=== PATIENT | male | born 1945 | race Caucasian/White ===

== ENCOUNTER 2018-08-10 11:23 | Inpatient (IN) | payer MEDICARE, OTHER ==
[~2018-08-10 11:23] MED LIST: ISOVUE-370 76%-LOCM 1 ML ONE
[2018-08-10 12:07] LABS: Hemoglobin 17.6 g/dL (14.0-18.0); Mean Corpuscular HGB CONC 33.5 g/dL (32.0-36.0); Mean Corpuscular Volume 89.7 fL (78.0-98.0); Mean Platelet Volume 7.6 fL (7.4-10.4); Platelet Count 323 thou/uL (130-400); RBC Distribution Width 13.2 % (11.5-14.5); Red Blood Cell (RBC) Count 5.87 mill/uL (4.70-6.10); White Blood Cell (WBC) Count 14.1 thou/uL (4.8-10.8)
--- NOTE | 2018-08-10 12:10 | RAD ---
CHEST ONE VIEW: Date: 08-10-18 Time: 11:38 a.m. History: Dyspnea. FINDINGS: Comparison is made with exam of 08-03-18. There are changes of median sternotomy. The heart size is normal. The aorta is tortuous. Bilateral sm all pleural effusions are again seen with mild adjacent atelectatic changes/infiltrates. No pneumotho races are seen. IMPRESSION: Stable exam. POS: [facility]
[2018-08-10 12:26] LABS: ALT (SGPT) 19 U/L (8-55); AST (SGOT) 15 U/L (5-34); Albumin 4.4 g/dL (3.4-4.8); Alkaline Phosphatase 121 U/L (40-150); Anion Gap 12 mmol/L (10-20); BUN (Urea Nitrogen) 24 mg/dL (8.4-25.7); Bilirubin, Total 0.7 mg/dL (0.2-1.2); CK (CPK) 61 U/L (30-200); Calc. Creatinine Clearance 0 mL/min (70-130); Calcium 10.1 mg/dL (7.8-10.44); Carbon Dioxide 30 mmol/L (23-31); Chloride 101 mmol/L (98-107); Estimated GFR-MDRD 80; Globulin 2.4 g/dL (2.4-3.5); Glucose 162 mg/dL (83-110); Lipase 21 U/L (8-78); Potassium 4.6 mmol/L (3.5-5.1); Protein, Total 6.8 g/dL (5.8-8.1); Sodium 138 mmol/L (136-145)
[2018-08-10 12:33] LABS: Band 1 % (5-11); Lymphocytes 47 % (21-51); MDiff Complete? YES; Neutrophil 50 % (42-75); RBC Morphology Normal; Reactive Lymphocytes 3 % (0-10)
[2018-08-10] MEDS ORDERED: methylPREDNISolone Sod Succ/PF 125 MG/2 ML VIAL ONE (16:46)
[2018-08-10] MEDS ORDERED: cefTRIAXone\\ROCEPHIN 2 GM VIAL ONE (16:46)
[2018-08-10] MEDS ORDERED: Azithromycin 500 MG VIAL ONE (17:30)
[2018-08-10] MEDS ORDERED: Acetaminophen 325 MG TAB PO PRN (20:25)
[2018-08-10] MEDS ORDERED: Ondansetron PF 4 MG/2 ML Vial IVP PRN (20:25)
[2018-08-10] MEDS ORDERED: Zolpidem Tartrate 5 MG TAB PO PRN (20:25)
[2018-08-10] MEDS ORDERED: Dextrose 50% Abboject 50 ML SYRINGE SLOW IVP PRN (20:30)
[2018-08-10] MEDS ORDERED: Dextrose 5% in Water 1,000 ML IV PRN (20:30)
--- NOTE | 2018-08-10 20:37 | PDOC.EVN ---
Event Note - Event Note Event Note: H&P #[id number]
[2018-08-10] MEDS ORDERED: Levofloxacin 500 mg/D5W 100 ml Premix Bag ONE (21:31)
--- NOTE | 2018-08-10 21:57 | CT ---
CT CHEST WITH CONTRAST: 08/10/18 HISTORY: Shortness of breath. COPD. COMPARISON: Chest radiograph same day. FINDINGS: There are very large bilateral pleural effusions each involving approximately 40% of the hemithorax v olume. There are extensive mass-like soft tissues surrounding the abdominal aorta as well as the thor acic aorta with anterior displacement of the aorta. There is also soft tissue encompassing the celiac trunk splenic artery, left gastric artery and common hepatic artery. Lawrence hepatis lymph nodes are p resent. Bilateral hilar adenopathy is present as well as subcarinal adenopathy right peritracheal adenopathy . No acute displaced rib fracture. There are perifissural nodules along the right minor fissure. Ther e appears to be some round atelectasis in both lower lobes. IMPRESSION: 1. Extensive confluent adenopathy and soft tissue mass surrounding the mid thoracic and visualiz ed portions of the abdominal aorta encasing the aorta and elevation suggesting lymphoma. There is als o lawrence hepatis adenopathy as well as adenopathy surrounding the celiac trunk, left gastric artery as well as the splenic artery. There is likely more adenopathy in the lower abdomen, although not compl etely evaluated on this exam. 2. Large mediastinal adenopathy as described. 3. Large bilateral pleural effusions encompassing approximately 40% of the hemithorax space. POS: [facility]
[2018-08-10] MEDS: Heparin 5,000 UNITS/ML VIAL SC SCH (22:37)
[2018-08-10] MEDS: Atorvastatin Calcium 40 MG TAB PO SCH (22:38)
[2018-08-10 23:25] LABS: Troponin I Less than 0.010 ng/mL (< 0.028)
--- NOTE | 2018-08-11 01:33 | HP ---
CHIEF COMPLAINT: Shortness of breath. HISTORY OF PRESENT ILLNESS: This is a 73-year-old male, complaining of shortness of breath, stated that the onset has been for about one week. The patient states that he uses DuoNeb at home and did use a DuoNeb at home, however, noted that he was not having any symptomatic relief or improvement in his condition, so the patient decided to come to the ER. The patient was given DuoNeb, steroids as well as supplemental oxygen and had significant improvement in his condition and symptomatology in the ER, and the patient continued to have a cough, however, and does state that he has recently become productive in the last 2 to 3 days. Denies any fevers at home. The patient does state that he has never had this type of a reaction or symptomatology in the past. The patient states that he otherwise does not have any other associated complaints. No alleviating or aggravating factors. The patient is seen and examined in the ER. No family at bedside. All questions answered. REVIEW OF SYSTEMS: All systems reviewed. Pertinent positives in HPI, otherwise negative. PAST MEDICAL HISTORY: Positive for coronary artery disease with two stents as well as cardiac bypass, diabetes mellitus type 2, hypothyroidism, hypertension, hyperlipidemia, as well as a history of hernia repair. SOCIAL HISTORY: The patient denies any alcohol use. Denies any smoking. FAMILY HISTORY: Positive for hypertension. MEDICATIONS: See MAR. PHYSICAL EXAMINATION: VITAL SIGNS: Blood pressure 140/82, respiratory rate of 18, pulse of 92, O2 saturations 97% on room air, temperature of 98.1. GENERAL: The patient is lying in bed. No acute discomfort noted. HEENT: Pupils are equal, reactive to light and accommodation. Extraocular muscles are intact. Oral cavity is moist and pink. RESPIRATORY: Coarse breath sounds in all lung washburn. The patient is coughing, external respiratory causes wheezing. No hemoptysis and no increase in AP diameter. CARDIOVASCULAR: Slightly borderline sinus tachycardia. Faint ejection murmur appreciated. S1, S2. ABDOMEN: Positive bowel sounds. Soft, nontender, nondistended. EXTREMITIES: 2+ peripheral pulses. No cyanosis, clubbing, or edema noted. NEUROLOGICAL: Cranial nerves 2 through 12 are intact. No loss of motor or sensory function. LABORATORY DATA: The patient has CBC with a WBC count of 14, otherwise normal. Basic metabolic panel normal except for a glucose which was 162. The patient had a chest x-ray done in the ER which was positive for nothing, basically stable cardiopulmonary on chest x-ray. ASSESSMENT: 1. Chronic obstructive pulmonary disease exacerbation. 2. Cough. 3. Hypertension. 4. Coronary artery disease, status post coronary artery bypass graft. 5. Hypothyroidism. 6. Diabetes mellitus, type 2. 7. Hyperlipidemia. PLAN: At this point in time, we will admit the patient to the internal medicine service. Start the patient on aspirin and cholesterol for his CAD. We will also start the patient on steroids as well as p.r.n. DuoNeb, oxygen. We will give antibiotics and Levaquin. Blood cultures were done and pending. Repeat labs in the morning. Sliding scale for diabetes at this point in time, the patient taking only glipizide at home and glucose was relatively well controlled, so we can probably resume that at point in time of discharge. The patient states that he wishes to remain a full code. Case and plan were discussed with the patient at length in the ER room where the patient was examined. No family at bedside. All questions answered. Job ID: [id number]
[2018-08-11] MEDS: methylPREDNISolone Sod Succ/PF 125 MG/2 ML VIAL IVP SCH ×2 (02:18→05:51)
[2018-08-11 02:38] VITALS: BMI 23.2
[2018-08-11] MEDS: Levothyroxine Sodium 25 MCG TAB PO SCH (05:50)
[2018-08-11] MEDS: HumaLOG 300 UNITS/3 ML VIAL SC PRN ×4 (05:51→21:45)
[2018-08-11] MEDS: Levothyroxine Sodium 112 MCG TAB PO SCH (05:51)
[2018-08-11] MEDS ORDERED: ISOVUE-370 76%-LOCM 1 ML ONE (08:16)
[2018-08-11] MEDS: Lisinopril 20 MG TAB PO SCH (08:26)
[2018-08-11] MEDS: Aspirin 81 mg Enteric Coated Tablet PO SCH (08:26)
[2018-08-11] MEDS: Heparin 5,000 UNITS/ML VIAL SC SCH ×2 (08:26→19:57)
[2018-08-11] MEDS: Gabapentin 400 MG CAP PO SCH (08:26)
[2018-08-11 08:45] LABS: Band 2 % (5-11); Hemoglobin 16.2 g/dL (14.0-18.0); Lymphocytes 27 % (21-51); MDiff Complete? YES; Mean Corpuscular HGB CONC 33.4 g/dL (32.0-36.0); Mean Corpuscular Hemoglobin 30.3 pg (27.0-31.0); Mean Corpuscular Volume 90.7 fL (78.0-98.0); Mean Platelet Volume 7.5 fL (7.4-10.4); Monocytes 1 % (0-10); Neutrophil 61 % (42-75); Platelet Count 283 thou/uL (130-400); RBC Distribution Width 13.1 % (11.5-14.5); RBC Morphology Normal; Reactive Lymphocytes 9 % (0-10); Red Blood Cell (RBC) Count 5.35 mill/uL (4.70-6.10); White Blood Cell (WBC) Count 14.9 thou/uL (4.8-10.8)
[2018-08-11 08:52] LABS: Anion Gap 14 mmol/L (10-20); BUN (Urea Nitrogen) 21 mg/dL (8.4-25.7); Calc. Creatinine Clearance 86 mL/min (70-130); Calcium 9.9 mg/dL (7.8-10.44); Carbon Dioxide 27 mmol/L (23-31); Chloride 101 mmol/L (98-107); Estimated GFR-MDRD 85; Glucose 228 mg/dL (83-110); Potassium 4.1 mmol/L (3.5-5.1); Sodium 138 mmol/L (136-145)
--- NOTE | 2018-08-11 11:12 | PDOC.PN ---
- Subjective Encounter Start Date: 08/11/18 Encounter Start Time: 11:10 Subjective: Patient reports SOB especially when laying flat. -: Continues with constant coughing fits but unable to clear his chest. -: States his chest feels congested. Has been tolerating oral intake. Reports having weight loss for the last 2 months and has lost 17 lbs overall. Denies any hemoptysis. States cough is dry and has been present for 2 months as well. Previously noted abdominal pain on the right side, more prominent when laying on his left. No abdominal pain at present. Normal bowel movements. No diarrhea. No n/v. - Objective Resuscitation Status - Order Detail: 08/10/18 20:25 Resuscitation Status Routine Resuscitation Status: FULL: Full Resuscitation Discussed with: patient Vital Signs & Weight: Vital Signs (12 hours) Temp Pulse Resp BP BP BP Pulse Ox 08/11/18 08:26 158/91 H 08/11/18 08:25 92 L 08/11/18 07:52 97.9 F 87 20 138/91 H 92 L 08/11/18 06:39 93 L 08/11/18 04:58 97.9 F 70 20 161/89 H 93 L 08/11/18 03:01 97.7 F 81 18 108/56 L 97 08/11/18 01:35 97.7 F 81 18 108/56 L 97 08/11/18 01:11 98.6 F 67 20 155/67 H 92 L Weight Weight 181 lb I&O: 08/10/18 08/11/18 08/12/18 06:59 06:59 06:59 Intake Total 350 Balance 350 Result Diagrams: 08/12/18 07:46 08/12/18 07:46 Additional Labs: Accuchecks 08/11/18 08/10/18 04:59 22:05 POC Glucose 257 H 280 H Phys Exam - Physical Examination Constitutional: NAD HEENT: PERRLA, sclera anicteric, oral pharynx no lesions Neck: supple, full ROM scattered inspiratory/expiratory wheezing in upper lung washburn decreased breath sounds at bilateral bases Cardiovascular: RRR Gastrointestinal: soft, non-tender, no distention, positive bowel sounds Musculoskeletal: no edema, pulses present Neurological: normal sensation, moves all 4 limbs Psychiatric: normal affect, A&O x 3 Skin: no rash, normal turgor Dx/Plan (1) Mediastinal adenopathy Code(s): R59.0 - LOCALIZED ENLARGED LYMPH NODES Status: Acute (2) Suspected malignant neoplasm Code(s): R68.89 - OTHER GENERAL SYMPTOMS AND SIGNS Status: Acute Plan: CT Chest notable for mass encasing thoracic and what is visible of the abdominal aorta. Lymphoma suspected. Additional imaging with CT A/P requested. Oncology consult placed. (3) Bilateral pleural effusion Code(s): J90 - PLEURAL EFFUSION, NOT ELSEWHERE CLASSIFIED Status: Acute Plan: Lasix 40 mg IV x 1. Likely malignant in nature, given mediastinal lymph nodes/mass. Pulmonary consult, may benefit from diagnostic/therapeutic thoracentesis. Continue to monitor O2 sats. Duonebs and steroids. (4) COPD (chronic obstructive pulmonary disease) Status: Acute Plan: As above, continue to monitor O2 sats. Duonebs, steroids and cough suppressant (Tessalon). (5) CAD (coronary artery disease) Code(s): I25.10 - ATHSCL HEART DISEASE OF [place] CORONARY ARTERY W/O ANG PCTRS Status: Chronic Plan: Hx of CABG x 2 and stent placement. Echo pending. BNP normal. - Plan cont current plan of care Patients case to be discussed with Dr. Denise for further recommendations. * Recommend Thoracic surgery evaluation for consideration of tissue bx, may also need CT guided bx of mediastinal mass. Convert to inpt status for comprehensive work up and evaluation given likely malignant process.
[2018-08-11] MEDS ORDERED: Furosemide 40 MG/4 ML VIAL SLOW IVP SCH (11:30)
--- NOTE | 2018-08-11 12:26 | CON ---
DATE OF CONSULTATION: HISTORY OF PRESENT ILLNESS: A 73-year-old gentleman, minimal tobacco abuse, smoked for no more than 4 years about in the , who sees the [facility] for normal care. He went yesterday with increased shortness of breath and cough without any fever or chills. was clear. He was told to go to [facility], but he wanted to come over here, he was therefore admitted here. He said he lost about 18 pounds. Denies any previous history of TB, pneumonia, or bronchial asthma. On most days, he can barely walk even 100 feet without getting markedly short of breath. This morning, he said he is feeling somewhat better. PAST MEDICAL HISTORY: Coronary artery disease status post SC, diabetes, hypothyroidism, hyperlipidemia and hypertension. PAST SURGICAL HISTORY: Bypass surgery, 2 stents, 2 hernia operation. No cancer. No CVA. No alcohol. HOME MEDICATIONS: Includes: 1. Gabapentin 400. 2. Aspirin 81. 3. Glipizide 5 twice a day. 4. Synthroid 137. 5. Hydrocodone. 6. Uroxatral 10 a day. ALLERGIES: SULFA. SOCIAL HISTORY: He is a traveling construction superintendent. REVIEW OF SYSTEMS: A 10-point negative. PHYSICAL EXAMINATION: VITAL SIGNS: Sats % on room air, blood pressure 150/91, pulse 87, temperature 97. CHEST: Decreased breath sounds bilaterally. CARDIAC: Normal S1, S2. No gallops. ABDOMEN: No masses. LABORATORY DATA: White count 47173, H and H 16 and 48, platelet count normal. His lytes are normal. Glucose 288. His chest x-ray shows bilateral blunting of the costophrenic angles, bilateral pleural effusion. CAT scan confirms a large pleural effusion and previous bypass surgery. ASSESSMENT: 1. Large bilateral pleural effusion. Normal BNP. Rule out congestive heart failure. 2. Minimal tobacco abuse, hypothyroidism. Switch over to oral medication. Await results of the echo. Need cardiology input. Pulmonary will follow. Consultation note, 70 minutes, 50% direct patient care. Job ID: [id number]
[2018-08-11] MEDS: Benzonatate 100 MG CAP PO SCH ×2 (14:30→19:57)
--- NOTE | 2018-08-11 17:43 | CT ---
CT ABDOMEN AND PELVIS WITH CONTRAST 08/11/18 HISTORY: Mass surrounding the aorta. COMPARISON: CT chest prior day. FINDINGS: Similar appearance of a large bilateral pleural effusions. There is soft tissue mass surrounding the thoracic aorta as well as the abdominal aorta, renal arteries, celiac trunk, superior mesenteric apple ry, and inferior mesenteric artery. Confluent adenopathy extends down to the level of the aortic bifu rcation. There are no dilated loops of large or small bowel. The liver and spleen are unremarkable. Cholelithi asis is present. Extensive tala hepatis adenopathy. Kidneys are unremarkable. No hydronephrosis. There is, however, abnormal thickening of the distal lef t ureter approximately 3 cm from the ureterovesicular junction seen on axial image 79. There are calcifications within the prostate. Mild diverticular disease sigmoid colon without active current inflammation. There are abnormally increased in number small bowel mesenteric lymph nodes as well as lymph nodes a djacent to the ascending colon. There is some mild extrinsic mass effect upon the aorta at the level of the renal arteries with approximately 10 to 15% luminal narrowing. There is also some luminal narr owing of the left renal artery approximately 30 to 40% near the ostia. Old compression deformity T12 superior end plate. IMPRESSION: 1. Confluent adenopathy/soft tissue mass surrounding the thoracic and abdominal aorta with some luminal compression of the renal arteries as well as of the aorta as described. This has the appearan ce of lymphoma. 2. Abnormal thickening of the distal left ureter approximately 2 cm from the ureterovesicular ju nction on axial image 79-80. Recommend followup CT urogram versus direct visualization is recommended . Nonemergent urologic consultation is recommended. This is not likely the cause of the adenopathy. 3. Small peripancreatic lymph node less likely a cystic mass along the caudad aspect of the panc reas measuring 8 mm, axial image 29, coronal image 52. 4. Cholelithiasis without cholecystitis. POS: [facility]
[2018-08-11] MEDS: Atorvastatin Calcium 40 MG TAB PO SCH (19:57)
[2018-08-12] MEDS: Levothyroxine Sodium 112 MCG TAB PO SCH (05:32)
[2018-08-12] MEDS: Levothyroxine Sodium 25 MCG TAB PO SCH (05:32)
[2018-08-12] MEDS: HumaLOG 300 UNITS/3 ML VIAL SC PRN ×4 (05:36→20:38)
[2018-08-12 08:27] LABS: Hemoglobin 16.4 g/dL (14.0-18.0); Mean Corpuscular HGB CONC 33.1 g/dL (32.0-36.0); Mean Corpuscular Hemoglobin 30.1 pg (27.0-31.0); Mean Corpuscular Volume 90.8 fL (78.0-98.0); Mean Platelet Volume 7.7 fL (7.4-10.4); Platelet Count 254 thou/uL (130-400); RBC Distribution Width 13.4 % (11.5-14.5); Red Blood Cell (RBC) Count 5.47 mill/uL (4.70-6.10); White Blood Cell (WBC) Count 11.7 thou/uL (4.8-10.8)
[2018-08-12] MEDS: Lisinopril 20 MG TAB PO SCH (08:31)
[2018-08-12] MEDS: Gabapentin 400 MG CAP PO SCH (08:31)
[2018-08-12] MEDS: predniSONE 20 MG TAB PO SCH (08:31)
[2018-08-12] MEDS: Heparin 5,000 UNITS/ML VIAL SC SCH ×2 (08:31→20:36)
[2018-08-12] MEDS: Benzonatate 100 MG CAP PO SCH ×3 (08:31→20:36)
[2018-08-12] MEDS: Furosemide 20 MG TAB PO SCH (08:31)
[2018-08-12] MEDS: Aspirin 81 mg Enteric Coated Tablet PO SCH (08:31)
[2018-08-12 08:43] LABS: Anion Gap 12 mmol/L (10-20); BUN (Urea Nitrogen) 26 mg/dL (8.4-25.7); Calc. Creatinine Clearance 86 mL/min (70-130); Calcium 9.8 mg/dL (7.8-10.44); Carbon Dioxide 33 mmol/L (23-31); Chloride 98 mmol/L (98-107); Estimated GFR-MDRD 85; Glucose 145 mg/dL (83-110); Potassium 3.9 mmol/L (3.5-5.1); Sodium 139 mmol/L (136-145)
--- NOTE | 2018-08-12 09:03 | PRG ---
DATE OF SERVICE: 08/12/2018 SUBJECTIVE: A 73-year-old gentleman, this morning, he is still having difficulty breathing. Denies any chest pain. OBJECTIVE: VITAL SIGNS: His blood pressure 134/79, sats are 92% on room air, respirations 18, temperature 98, pulse 80. CHEST: Decreased breath sounds, no wheezing. CARDIAC: Normal S1, S2, negative mass. IMPRESSION: 1. Severe chronic obstructive pulmonary disease. 2. Diabetes. 3. Weight loss. 4. CT of the abdomen. 5. Continue low-dose Lasix for patient's bilateral pleural effusion, steroids for neb treatments. 6. Supportive care. We will follow. Job ID: [id number]
[2018-08-12] MEDS ORDERED: Lidocaine 1% (PF) 30 ML VIAL ONE (10:06)
[2018-08-12 10:51] LABS: Fluid, Triglycerides 64 mg/dL (Not Available); Pleural Fluid, Amylase Less than 30 U/L (Not Available); Pleural Fluid, Glucose 171 mg/dL; Pleural Fluid, LDH 171 U/L (Not Available); Pleural Fluid, Protein 3.4 g/dL
--- NOTE | 2018-08-12 11:01 | OP ---
DATE OF PROCEDURE: 08/12/2018 PROCEDURE PERFORMED: Thoracentesis. INDICATION: Pleural effusion. DESCRIPTION OF PROCEDURE: After informed consent, the right posterior thorax was cleaned with chlorhexidine, 1% Xylocaine was then infiltrated into the right 9th intercostal space in the midscapular line, and the pleural cavity was entered in, and initially, 20 mL of turbid yellow fluid was removed. Following which, using an 8-Setswana catheter, 900 mL of turbid yellow fluid was removed without any difficulty. Pleural fluid sent for appropriate studies including cytology and culture. Job ID: [id number]
--- NOTE | 2018-08-12 12:07 | RAD ---
RIGHT LATERAL DECUBITUS FILM: INDICATIONS: Dyspnea. COMPARISON: Prior chest radiograph, dated 08/10/2018. FINDINGS: The right-sided pleural effusion layers freely with the decubitus position. The left lung is clear. Post CABG changes are stable. IMPRESSION: Layering moderate right pleural effusion. POS: [facility]
--- NOTE | 2018-08-12 12:11 | RAD ---
CHEST 1 VIEW: Date: 08/12/18 HISTORY: Thoracentesis. COMPARISON: 08/10/18. FINDINGS: Decreasing bilateral pleural effusions. Postop midline sternotomy. Heart size is within normal limits . Minimal patchy infrahilar parenchymal changes bilaterally, possibly mild subsegmental atelectasis. IMPRESSION: Small bilateral pleural effusions. Minimal patchy infrahilar parenchymal changes bilaterally. No pneu mothorax. POS: [facility]
--- NOTE | 2018-08-12 12:13 | RAD ---
LEFT LATERAL DECUBITUS RADIOGRAPHS: INDICATIONS: Dyspnea and effusion. COMPARISON: Chest radiograph dated 08/10/2018. FINDINGS: There is a small left layering pleural effusion. There is a moderate layering pleural effusion invol ving the right lung base. IMPRESSION: Small left and moderate right layering pleural effusion. POS: [facility]
[2018-08-12 12:47] LABS: Lymphocytes 33 % (21-51); MDiff Complete? YES; Neutrophil 57 % (42-75); Reactive Lymphocytes 4 % (0-10)
[2018-08-12 12:48] LABS: Eosinophils 3 % (0-10); Monocytes 3 % (0-10); Platelet Morphology Comment Appears Adequate; RBC Morphology Normal
[2018-08-12 14:18] LABS: BF Color Yellow; Body Fluid Source Thoracentesis Fluid; Clarity Cloudy/Turbid (Clear); Tube # 3; WBC Background Count 0.01; WBC/NonHematic-Auto 5830 /cumm
[2018-08-12 14:19] LABS: BF RBC Count - Manual 1900 /cumm
[2018-08-12 14:39] LABS: Cell Count Non Hematic 41 %; Lymphocytes 59 %
--- NOTE | 2018-08-12 14:51 | PDOC.PN ---
- Subjective Encounter Start Date: 08/12/18 Encounter Start Time: 14:49 Subjective: sob improved post thoracentesis - Objective Resuscitation Status - Order Detail: 08/10/18 20:25 Resuscitation Status Routine Resuscitation Status: FULL: Full Resuscitation Discussed with: patient CORIN Reviewed: Yes Vital Signs & Weight: Vital Signs (12 hours) Temp Pulse Resp BP BP Pulse Ox 08/12/18 11:53 95 08/12/18 10:51 75 16 97 08/12/18 08:31 134/79 08/12/18 07:46 98.0 F 80 20 134/79 92 L 08/12/18 07:02 95 08/12/18 07:00 78 16 95 Weight Weight 181 lb I&O: 08/11/18 08/12/18 08/13/18 06:59 06:59 06:59 Intake Total 350 2044 Balance 350 2044 Result Diagrams: 08/12/18 07:46 08/12/18 07:46 Additional Labs: Accuchecks 08/12/18 08/12/18 08/11/18 11:45 05:36 20:39 POC Glucose 312 H 157 H 207 H 08/11/18 16:28 POC Glucose 228 H Phys Exam - Physical Examination Neck: no JVD dull both lung bases Cardiovascular: RRR, no significant murmur Gastrointestinal: soft, positive bowel sounds Musculoskeletal: no edema Dx/Plan (1) Bilateral pleural effusion Code(s): J90 - PLEURAL EFFUSION, NOT ELSEWHERE CLASSIFIED Status: Acute (2) COPD (chronic obstructive pulmonary disease) Status: Chronic Qualifiers: COPD type: emphysema Emphysema type: unspecified Qualified Code(s): J43.9 - Emphysema, unspecified (3) Mediastinal adenopathy Code(s): R59.0 - LOCALIZED ENLARGED LYMPH NODES Status: Acute (4) Suspected malignant neoplasm Code(s): R68.89 - OTHER GENERAL SYMPTOMS AND SIGNS Status: Acute (5) CAD (coronary artery disease) Code(s): I25.10 - ATHSCL HEART DISEASE OF [place] CORONARY ARTERY W/O ANG PCTRS Status: Chronic Qualifiers: Coronary Disease-Associated Artery/Lesion type: [place] artery [place] vs. transplanted heart: [place] heart Associated angina: without angina Qualified Code(s): I25.10 - Atherosclerotic heart disease of [place] coronary artery without angina pectoris - Plan post thoracentesis -: cytology pending -: september need lymph node BX * .
--- NOTE | 2018-08-12 15:38 | CON ---
DATE OF CONSULTATION: REASON FOR CONSULT: Lymphadenopathy. HISTORY OF PRESENT ILLNESS: Mr. Hill is a pleasant 73-year-old gentleman, who presented to the emergency room on August 10 with shortness of breath for about a week. He states that over the past two months he has gotten progressively weaker with about a 20-pound weight loss and increasing shortness of breath. He denies any fever. No night sweats. In the emergency room, he had a CT of the chest, which showed extensive confluent adenopathy and a soft tissue mass surrounding the mid thoracic and abdominal aorta. There was a large mediastinal adenopathy and large bilateral pleural effusions. He underwent a CT of the abdomen and pelvis, confluent adenopathy was again seen. There was some luminal compression of the renal arteries as well as the aorta. Dr. Plaza performed a thoracentesis with a liter of fluid removed. We were asked to see the patient to assist with diagnosis. The patient denies any complaints at this time. He states he is breathing better after his thoracentesis. No chest pain. No GI complaints. PAST MEDICAL HISTORY: 1. Coronary artery disease. 2. Diabetes mellitus. 3. Hypothyroidism. 4. Hypertension. 5. Hyperlipidemia. PAST SURGICAL HISTORY: 1. Stent placement. 2. Cardiac bypass. 3. Hernia repair. ALLERGIES: SULFA. HOME MEDICATIONS: 1. Ecotrin daily. 2. B12 daily. 3. Colace daily. 4. Cymbalta 30 mg daily. 5. Neurontin b.i.d. 6. Glipizide b.i.d. 7. Synthroid 175 mcg daily. 8. Lisinopril/hydrochlorothiazide daily. 9. Metformin b.i.d. 10. Metoprolol 50 mg b.i.d. 11. Crestor daily. 12. Flomax daily. 13. Trazodone daily. FAMILY HISTORY: No known history of lymphoma or cancer. SOCIAL HISTORY: Single, lives alone. No children. No tobacco, alcohol, or illicit drug use. REVIEW OF SYSTEMS: A 10-point review of systems is negative except for noted in HPI. PHYSICAL EXAMINATION: VITAL SIGNS: Temperature is 98.0, pulse is 75, respiratory rate 16, and blood pressure is 134/79. He is 95% on room air. GENERAL: Well-developed, well-nourished male, in no acute distress. HEENT: Normocephalic and atraumatic. Pupils are equal and reactive to light. NECK: Supple. CV: Regular rate and rhythm. LUNGS: Clear. ABDOMEN: Soft and nontender. Bowel sounds are positive. EXTREMITIES: No clubbing, cyanosis, or edema. SKIN: No rash. HEMATOLOGICAL: No petechiae or purpura. NEUROLOGICAL: Nonfocal. PSYCH: The patient is alert and oriented. PERTINENT LABS AND X-RAYS: Current WBC is 11.7, hemoglobin 16.4, hematocrit 49.7, and platelet count 254,000. He has 61% neutrophils, 2% bands, 27% lymphocytes. Sodium is 139, potassium 3.9, chloride 98, CO2 is 33, BUN is 26, creatinine 0.88, calcium is 9.8, bilirubin is 0.7, AST is 15, ALT is 19, alkaline phosphatase is 121. Creatine kinase is 61. Troponin is negative. BNP is 43. Serum total protein 6.8, albumin 4.4, globulin 2.4, lipase 21. ASSESSMENT: 1. Large confluent adenopathy of the thoracic and abdominal aorta. 2. Mediastinal lymphadenopathy. 3. Pleural effusions, status post thoracentesis. DISCUSSION: The patient has a clinical picture of lymphoma. His pleural fluid was sent for cytology. Recommend a mediastinoscopy for lymph node biopsy. Dr. Plaza has spoken with CV surgeons. Further recommendations will be based on those results. Thank you for the consult. We will follow along with his hospital stay. Job ID: [id number]
--- NOTE | 2018-08-12 15:42 | CON ---
DATE OF CONSULTATION: 08/12/2018 REASON FOR CONSULTATION: Shortness of breath. HISTORY OF PRESENT ILLNESS: Mr. Hill is a pleasant 73-year-old white gentleman, who comes to the hospital for shortness of breath. He states this has been going on for about the last 3 to 4 months. He has been trying to make it go away with [id number] medications. He got to the point where he was severely short winded. Then, he went to see the [place] primary care doctor here in consultation, and he was advised to go to the hospital. He decided to come in through the ER and was admitted for large pleural effusions. Cardiology is being consulted to see if this is cardiac in nature. Dr. Plaza evaluated the patient and already did a thoracentesis, and the fluid is being sent for evaluation. Echocardiogram has also been already read, and he has an EF of 60% to 65% with grade 1 diastolic dysfunction. Currently, he feels much better after a liter was taken out of his lungs. PAST MEDICAL HISTORY: 1. Coronary artery disease. 2. Type 2 diabetes. 3. Hypothyroidism. 4. Hypertension. 5. Hyperlipidemia. PAST SURGICAL HISTORY: 1. Coronary artery bypass grafting several years ago. 2. Two stents placed in the past. 3. Hernia repair. SOCIAL HISTORY: No alcohol, tobacco, or drugs. FAMILY HISTORY: Noncontributory. OUTPATIENT MEDICATIONS: Reviewed: 1. Trolamine cream. 2. Trazodone. 3. Flomax. 4. Simethicone. 5. Crestor 40 mg q.h.s. 6. Metformin 750 mg b.i.d. 7. Metoprolol tartrate 50 mg b.i.d. 8. Cymbalta. 9. Vitamin B12. 10. Somis p.r.n. 11. Synthroid 175 mcg a day. 12. Docusate. 13. Lisinopril/hydrochlorothiazide 20/12.5 mg a day. 14. Glipizide 10 mg b.i.d. 15. Naproxen. 16. Gabapentin. 17. Aspirin 81 a day. ALLERGIES: SULFA DRUGS. REVIEW OF SYSTEMS: A 12-point review of systems was done and was all negative unless stated in the history of present illness. He does admit to an 18-pound weight loss in the last month. PHYSICAL EXAMINATION: VITAL SIGNS: Temperature 98.0, pulse 80, respiratory rate 20, saturating 92% on room air, and blood pressure 134/79. GENERAL: Awake, alert, and oriented x3, in no distress. HEENT: Normocephalic and atraumatic. NECK: Supple. LUNGS: Clear currently, this is after thoracentesis. CARDIOVASCULAR: S1 and S2. No S3 or S4. There is a grade 3/6 holosystolic murmur at the apex. ABDOMEN: Soft. Positive bowel sounds. EXTREMITIES: Trace edema. SKIN: Warm and dry. LABORATORY DATA: Laboratory work was reviewed. CBC with a white count of 11, down from 14.9; hemoglobin of 16; hematocrit of 49; and platelet count of 254. Chemistry was reviewed, unremarkable. Fluid was reviewed. Cytology is pending. DIAGNOSTIC DATA: Chest x-ray was reviewed. CT of the abdomen and pelvis was reviewed, and it reveals a large soft tissue mass surrounding the thoracic and abdominal aorta with luminal compression of the renal arteries as well as the aorta, apparently thought to be lymphoma. There are peripancreatic lymph nodes. Cholelithiasis without cholecystitis. ASSESSMENT: 1. Shortness of breath. 2. Pleural effusions. 3. Abdominal mass. 4. Concern for lymphoma. PLAN: 1. Review echocardiogram. He has a normal LV function, only grade 1 diastolic dysfunction, which is expected in a 73-year-old. No major valvular abnormality. Moderate MR should not cause this. Most likely, the heart is not involved in the pleural effusions. At this time, plan is to work up for possible lymphoma. 2. Unlikely to be cardiac edema. Thank you for letting me to participate in the care of your patient. We will sign off. Please call with any questions. Job ID: [id number]
[2018-08-12] MEDS: Atorvastatin Calcium 40 MG TAB PO SCH (20:36)
--- NOTE | 2018-08-12 22:41 | CON ---
DATE OF CONSULTATION: HISTORY OF PRESENT ILLNESS: This is a 73-year-old gentleman who has had a 17-pound weight loss, dyspnea, and fatigue over the past few months. He was admitted to the hospital where he was found to have bilateral pleural effusions as well as abdominal and mediastinal adenopathy. He underwent thoracentesis today and I was asked to see him in regard to mediastinoscopy. PAST MEDICAL HISTORY: Includes diabetes mellitus, hypertension, dyslipidemia, and coronary artery disease. PAST SURGICAL HISTORY: Includes coronary stenting in 1999 and 2004 and then coronary artery bypass grafting in 2013. He has also had a hernia repair this past year by Dr. Durán. Most recent cardiac evaluation was prior to his hernia repair and was reportedly normal. His coronary bypass was a single-vessel to the LAD. SOCIAL HISTORY: The patient is a nonsmoker and nondrinker. HOME MEDICATIONS: Included; 1. Trazodone. 2. Flomax. 3. Crestor. 4. Metformin. 5. Metoprolol. 6. Cymbalta. 7. Synthroid. 8. Lisinopril/hydrochlorothiazide. 9. Gabapentin. 10. Aspirin. 11. Glipizide. ALLERGIES: TO SULFA. PHYSICAL EXAMINATION: GENERAL: Alert, cooperative gentleman, recorded height of 6 feet 2 inches, although he does not look that tall, 181 pounds. NECK: No carotid bruits. No cervical adenopathy. LUNGS: Clear to auscultation. CARDIAC: Regular rate and rhythm. No murmurs. ABDOMEN: Soft and nontender and I do not appreciate any masses. EXTREMITIES: He has a palpable pedal pulse in both feet. He has no peripheral edema. No clubbing. IMAGING: CT scan was reviewed and he does have some mediastinal enlargement involving the carinal area including pretracheal. PLAN: Plan at this time is for cervical mediastinal exploration and biopsy. Informed consent has been obtained. Job ID: [id number]
[2018-08-12] MEDS ORDERED: Loperamide HCl 2 MG CAP PO SCH (23:45)
[2018-08-13] MEDS: Levothyroxine Sodium 25 MCG TAB PO SCH (05:33)
[2018-08-13] MEDS: Levothyroxine Sodium 112 MCG TAB PO SCH (05:33)
[2018-08-13 07:03] LABS: Hemoglobin 15.8 g/dL (14.0-18.0); Mean Corpuscular HGB CONC 33.6 g/dL (32.0-36.0); Mean Corpuscular Hemoglobin 30.9 pg (27.0-31.0); Mean Platelet Volume 7.9 fL (7.4-10.4); Platelet Count 225 thou/uL (130-400); RBC Distribution Width 13.3 % (11.5-14.5); Red Blood Cell (RBC) Count 5.11 mill/uL (4.70-6.10)
[2018-08-13 07:14] LABS: Anion Gap 10 mmol/L (10-20); BUN (Urea Nitrogen) 29 mg/dL (8.4-25.7); Calc. Creatinine Clearance 89 mL/min (70-130); Calcium 9.5 mg/dL (7.8-10.44); Carbon Dioxide 33 mmol/L (23-31); Chloride 101 mmol/L (98-107); Estimated GFR-MDRD 88; Glucose 158 mg/dL (83-110); Potassium 4.3 mmol/L (3.5-5.1); Sodium 140 mmol/L (136-145)
[2018-08-13] MEDS ORDERED: predniSONE 20 MG TAB PO SCH ×2 (09:04→09:15)
[2018-08-13 09:15] LABS: Band 3 % (5-11); Eosinophils 1 % (0-10); Lymphocytes 33 % (21-51); MDiff Complete? YES; Monocytes 2 % (0-10); Neutrophil 56 % (42-75); RBC Morphology Normal; Reactive Lymphocytes 5 % (0-10)
[2018-08-13] MEDS ORDERED: Loperamide HCl 2 MG CAP PO SCH (09:45)
--- NOTE | 2018-08-13 10:04 | PRG ---
DATE OF SERVICE: 08/13/2018 SUBJECTIVE: [place], he is doing better this morning. He is less short of breath, though he said he is having diarrhea. OBJECTIVE: VITAL SIGNS: Sats % on room air, temperature is 97, pulse 80, blood pressure 130/68. CHEST: Decreased breath sounds. No wheezing. CARDIAC: Normal S1, S2. No gallops. ABDOMEN: No masses. LABORATORY DATA: Lytes are normal. Pleural effusion was a borderline transudate exudate. IMPRESSION: 1. Mediastinal abdominal adenopathy, rule out lymphoma. 2. Bilateral pleural effusion, status post thoracentesis. 3. Chronic obstructive pulmonary disease. PLAN: Stool has been ordered for C. diff. He did undergo CME, await results of the path as well as also the pleural effusion. Oncology has been consulted. We will follow. Job ID: [id number]
[2018-08-13] MEDS ORDERED: Lidocaine 1% PF 5 ML VIAL ONE (11:57)
[2018-08-13] MEDS ORDERED: Rocuronium Bromide 10 MG/ML (10ML VIAL) ONE (11:57)
[2018-08-13] MEDS ORDERED: PHENYLEPHRINE-NS 100 MCG/ML 10 ML SYRINGE ONE (11:57)
[2018-08-13] MEDS ORDERED: PROPOFOL 200 MG/20 ML VIAL ONE (11:57)
[2018-08-13] MEDS ORDERED: Ondansetron PF 4 MG/2 ML Vial ONE (11:57)
[2018-08-13] MEDS ORDERED: Fentanyl 100 MCG/2 ML VIAL ONE (12:24)
[2018-08-13] MEDS ORDERED: Lidocaine 4% Topical Sol 50 ML BOT ONE (12:34)
[2018-08-13] MEDS ORDERED: SUGAMMADEX SODIUM 200 MG/2 ML VIAL ONE (13:20)
--- NOTE | 2018-08-13 14:19 | OP ---
DATE OF PROCEDURE: 08/13/2018 PREOPERATIVE DIAGNOSIS: Mediastinal and retroperitoneal adenopathy. PROCEDURE PERFORMED: Cervical mediastinal exploration and lymph node biopsies. ANESTHESIA: General. ESTIMATED BLOOD LOSS: Minimal. DESCRIPTION OF PROCEDURE: After adequate anesthesia had been obtained with a pulse oximeter on the right index finger and a shoulder roll in place, the patient was prepped and draped in the sternal notch. Incision was made, carried down to the level of the trachea, where blunt dissection was carried into the mediastinum. Following this, the scope was inserted and dissection was carried out further to the precarinal area, where a large fleshy lymph node was identified, aspirated and then biopsied multiple times. Hemostasis was obtained. The scope was removed. Wound closed in layers and the patient is to be taken to the recovery room. Job ID: [id number]
[2018-08-13] MEDS: Gabapentin 400 MG CAP PO SCH (15:15)
[2018-08-13] MEDS: Lisinopril 20 MG TAB PO SCH (15:16)
[2018-08-13] MEDS: Benzonatate 100 MG CAP PO SCH ×3 (15:16→20:41)
[2018-08-13] MEDS: Aspirin 81 mg Enteric Coated Tablet PO SCH (15:17)
[2018-08-13] MEDS: predniSONE 20 MG TAB PO SCH (15:21)
[2018-08-13] MEDS: Furosemide 20 MG TAB PO SCH (15:21)
--- NOTE | 2018-08-13 15:37 | PDOC.PN ---
- Subjective Encounter Start Date: 08/13/18 Encounter Start Time: 15:35 Subjective: s/p mediastinal LN biopsy.feels Ok -: but c/o diarrhea since this mormim.no and pain or vomiting - Objective Resuscitation Status - Order Detail: 08/10/18 20:25 Resuscitation Status Routine Resuscitation Status: FULL: Full Resuscitation Discussed with: néstor COOMBS Reviewed: Yes Vital Signs & Weight: Vital Signs (12 hours) Temp Pulse Resp BP BP Pulse Ox 08/13/18 15:16 157/79 H 08/13/18 08:59 96 08/13/18 08:56 83 20 96 08/13/18 08:00 94 L 08/13/18 07:23 98.3 F 77 16 138/68 94 L 08/13/18 04:46 97.9 F 76 20 139/84 93 L Weight Weight 181 lb I&O: 08/12/18 08/13/18 08/14/18 06:59 06:59 06:59 Intake Total 2043 1999 Balance 2043 1999 Result Diagrams: 08/13/18 06:26 08/13/18 06:26 Additional Labs: Accuchecks 08/13/18 08/12/18 08/12/18 04:45 19:49 16:24 POC Glucose 172 H 294 H 326 H Microbiology 08/12/18 Unknown Pleural fluid Body Fluid Culture - Preliminary 08/10/18 21:04 Venous blood - Right Arm Blood Culture - Preliminary NO GROWTH AT 48 HOURS 08/10/18 20:57 Venous blood - Left Arm Blood Culture - Preliminary NO GROWTH AT 48 HOURS Phys Exam - Physical Examination Constitutional: NAD HEENT: PERRLA, moist MMs, sclera anicteric, oral pharynx no lesions Neck: no nodes, no JVD, supple, full ROM Respiratory: no wheezing, no rales, no rhonchi, clear to auscultation bilateral Cardiovascular: RRR, no significant murmur, no rub Gastrointestinal: soft, non-tender, no distention, positive bowel sounds Musculoskeletal: no edema, pulses present Neurological: non-focal, normal sensation, moves all 4 limbs Psychiatric: normal affect, A&O x 3 Skin: no rash Dx/Plan (1) Diarrhea Code(s): R19.7 - DIARRHEA, UNSPECIFIED Status: Acute (2) Bilateral pleural effusion Code(s): J90 - PLEURAL EFFUSION, NOT ELSEWHERE CLASSIFIED Status: Acute Comment: s/p thoracentesis. Fluid Cx negative so far. Pathology pending (3) Mediastinal adenopathy Code(s): R59.0 - LOCALIZED ENLARGED LYMPH NODES Status: Acute Comment: s/p Bx 08/13/18 (4) Suspected malignant neoplasm Code(s): R68.89 - OTHER GENERAL SYMPTOMS AND SIGNS Status: Acute (5) CAD (coronary artery disease) Code(s): I25.10 - ATHSCL HEART DISEASE OF [place] CORONARY ARTERY W/O ANG PCTRS Status: Chronic Qualifiers: Coronary Disease-Associated Artery/Lesion type: [place] artery [place] vs. transplanted heart: [place] heart Associated angina: without angina Qualified Code(s): I25.10 - Atherosclerotic heart disease of [place] coronary artery without angina pectoris (6) COPD (chronic obstructive pulmonary disease) Status: Chronic Qualifiers: COPD type: emphysema Emphysema type: unspecified Qualified Code(s): J43.9 - Emphysema, unspecified - Plan DVT proph w/SCDs send stool for C.Diff. stop levaquin as no clear indication.all Cx Neg so f -: likely home in am w Op Oncology follow up for possible Lymphoma -: Hd stable * . Review of Systems - Review of Systems Constitutional: negative: fever, chills, sweats, weakness, malaise, other ENT: negative: Ear Pain, Ear Discharge, Nose Pain, Nose Discharge, Nose Congestion, Mouth Pain, Mouth Swelling, Throat Pain, Throat Swelling, Other Respiratory: negative: Cough, Dry, Shortness of Breath, Hemoptysis, SOB with Excertion, Pleuritic Pain, Sputum, Wheezing Cardiovascular: negative: chest pain, palpitations, orthopnea, paroxysmal nocturnal dyspnea, edema, light headedness, other Gastrointestinal: Diarrhea. negative: Nausea, Vomiting, Abdominal Pain, Constipation, Melena, Hematochezia, Other Genitourinary: negative: Dysuria, Frequency, Incontinence, Hematuria, Retention , Other Musculoskeletal: negative: Neck Pain, Shoulder Pain, Arm Pain, Back Pain, Hand Pain, Leg Pain, Foot Pain, Other Neurological: negative: Weakness, Numbness, Incoordination, Change in Speech, Confusion, Seizures, Other - Medications/Allergies Allergies/Adverse Reactions: Allergies Allergy/AdvReac Type Severity Reaction Status Date / Time Sulfa (Sulfonamide Allergy black out Verified 10/09/15 12:35 Antibiotics) Medications: Current Medications Acetaminophen (Tylenol) 650 mg PO Q4H PRN PRN Reason: Headache/Fever/Mild Pain (1-3) Albuterol/Ipratropium (Duoneb) 3 ml NEB [id number] [facility] Last Admin: 08/13/18 11:51 Dose: Not Given Aspirin (Ecotrin) 81 mg PO DAILY [facility] Last Admin: 08/13/18 15:17 Dose: 81 mg Atorvastatin Calcium (Lipitor) 40 mg PO HS [facility] Last Admin: 08/12/18 20:36 Dose: 40 mg Benzonatate (Tessalon) 100 mg PO TID [facility] Last Admin: 08/13/18 15:16 Dose: 100 mg Dextrose/Water (Dextrose 50%) 25 gm SLOW IVP PRN PRN PRN Reason: Hypoglycemia Gabapentin (Neurontin) 400 mg PO DAILY [facility] Last Admin: 08/13/18 15:15 Dose: 400 mg Glucagon (Glucagon) 1 mg IM PRN PRN PRN Reason: Hypoglycemia Dextrose/Water (D5w) 1,000 mls @ 0 mls/hr IV .Q0M PRN PRN Reason: Hypoglycemia Insulin Human Lispro (Humalog) 0 units SC .MILD SLIDING SCALE PRN PRN Reason: Mild Correctional Scale Last Admin: 08/12/18 16:28 Dose: 5 unit Insulin Human Lispro (Humalog) 0 units SC .BEDTIME SLIDING SC PRN PRN Reason: Bedtime Correctional Scale Last Admin: 08/12/18 20:38 Dose: 3 unit Levofloxacin (Levaquin) 500 mg PO 0600 [facility] Last Admin: 08/13/18 05:33 Dose: 500 mg Levothyroxine Sodium (Synthroid) 112 mcg PO 0600 [facility] Last Admin: 08/13/18 05:33 Dose: 112 mcg Levothyroxine Sodium (Synthroid) 25 mcg PO 0600 [facility] Last Admin: 08/13/18 05:33 Dose: 25 mcg Lisinopril (Zestril) 20 mg PO DAILY [facility] Last Admin: 08/13/18 15:16 Dose: 20 mg Ondansetron HCl (Zofran) 4 mg IVP Q6H PRN PRN Reason: Nausea/Vomiting Prednisone (Prednisone) 20 mg PO QAM[facility] Sodium Chloride (Flush - Normal Saline) 10 ml IVF Q12HR PRN PRN Reason: Saline Flush Zolpidem Tartrate (Ambien) 5 mg PO HSPRN PRN PRN Reason: Insomnia
[2018-08-13] MEDS: HumaLOG 300 UNITS/3 ML VIAL SC PRN ×2 (17:06→20:42)
[2018-08-13] MEDS: Atorvastatin Calcium 40 MG TAB PO SCH (20:41)
[2018-08-14] MEDS: Levothyroxine Sodium 25 MCG TAB PO SCH (05:15)
[2018-08-14] MEDS: Levothyroxine Sodium 112 MCG TAB PO SCH (05:15)
[2018-08-14] MEDS ORDERED: predniSONE 20 MG TAB PO SCH (08:00)
[2018-08-14 08:02] VITALS: BP 129/85; TEMP 98
[2018-08-14] MEDS: Benzonatate 100 MG CAP PO SCH (08:07)
[2018-08-14] MEDS: Gabapentin 400 MG CAP PO SCH (08:07)
[2018-08-14] MEDS: Aspirin 81 mg Enteric Coated Tablet PO SCH (08:07)
[2018-08-14] MEDS: Lisinopril 20 MG TAB PO SCH (08:08)
--- NOTE | 2018-08-14 14:01 | PRG ---
DATE OF SERVICE: 08/14/2018 SUBJECTIVE: He is doing well, has no complaints. He is in the room watching the basketball tournament. He says he wants to go home. OBJECTIVE: VITAL SIGNS: On exam, his temperature is 98.0, pulse 72, respirations 20, O2 saturation 96% on room air, blood pressure 129/85. HEENT: Unremarkable. NECK: No adenopathy, JVD or bruits. The operative site appears to be healing well. CARDIAC: S1, S2 regular. ABDOMEN: Soft. EXTREMITIES: No edema. ASSESSMENT: 1. Pleural effusion secondary to lymphoma. 2. Mediastinal adenopathy, which is probably secondary to lymphoma also. PLAN: This patient is stable to go home. He can have followup with the oncologist for his pathology results. No further recommendations at this time. Job ID: [id number]
--- NOTE | 2018-08-14 22:42 | DIS ---
DATE OF ADMISSION: 08/12/2018 DATE OF DISCHARGE: 08/14/2018 PRIMARY CARE PHYSICIAN: [facility] CONDITION AT THE TIME OF DISCHARGE: Stable. DISCHARGE DISPOSITION: Home. DISCHARGE DIAGNOSES: 1. Diarrhea, resolved. 2. Bilateral pleural effusion, likely malignant. 3. Mediastinal adenopathy, status post biopsy 08/13/2018. 4. Suspected malignancy, likely lymphoma. 5. Coronary artery disease, stable. 6. Chronic obstructive pulmonary disease, stable. DISCHARGE MEDICATIONS: New medication: 1. Medrol Dosepak and Florastor 250 mg daily for 10 days. Resume home medications as follows: 1. Trazodone 50 mg daily. 2. Tamsulosin 0.4 mg daily. 3. Simethicone as needed. 4. Crestor 40 mg daily. 5. Metformin ER 750 mg p.o. b.i.d. 6. Metoprolol tartrate 50 mg p.o. b.i.d. 7. Duloxetine 30 mg daily. 8. Vitamin B12 daily. 9. Synthroid 175 mcg daily. 10. Lisinopril hydrochlorothiazide 20/12.5 mg daily. 11. Glipizide 10 mg p.o. b.i.d. 12. Gabapentin 400 mg p.o. b.i.d. 13. Aspirin 81 mg daily. IN-HOUSE CONSULTATIONS: 1. Oncology, Ms. Risa Chan for Dr. Elizalde. 2. Cardiology, Dr. Munoz. 3. Cardiothoracic Surgery, Dr. Luther. 4. Pulmonary Medicine. PROCEDURES DONE IN THE HOSPITAL: 1. CT scan of the chest on 08/10/2018, which shows extensive adenopathy and soft tissue mass surrounding the mid thoracic and abdominal aorta encasing the aorta on elevation suggestive of lymphoma. [place] hepatis adenopathy as well as adenopathy in the left celiac gastric artery, splenic artery and celiac trunk artery territory. Large mediastinal adenopathy. Large bilateral pleural effusion. 2. CT scan of the abdomen and pelvis, which shows once again significant adenopathy as well as soft tissue mass surrounding the thoracic and abdominal aorta with some luminal compression of the renal arteries as well as of aorta. Abnormal thickening of distal left ureteral and peripancreatic lymph node and cholelithiasis without cholecystitis. 3. Echocardiogram, transthoracic, EF 60% to 65%. Left pleural effusion. 4. Multiple chest x-rays. 5. Thoracentesis by Dr. Plaza, 08/12/2018. 6. Lymph node biopsy by Dr. Luther on 08/13/2018. HISTORY OF PRESENTING ILLNESS: Mr. Hill is a 73-year-old male with past medical history of diabetes, coronary artery disease, hypothyroidism, hypertension, dyslipidemia, who presented to the emergency room with complaints of shortness of breath. He was given nebulized steroids in the emergency room with improvement in his symptoms. Initial presumptive admitting diagnosis was COPD exacerbation. Please see admission history and physical dictated by Dr. Deleon on 08/10/2018. HOSPITAL COURSE: A CT scan of the chest was done shortly after admission because of persistent coughing and detailed history of weight loss. The CT scan showed significant adenopathy with encompassing of major blood vessels including thoracic and abdominal aorta. This was also positive for bilateral pleural effusions. A CT scan of the abdomen and pelvis was done as there was concern of lymphoma. This once again confirmed the suspicion of lymphoma. Pulmonary Medicine was consulted and he underwent a thoracentesis. 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 Oncology was consulted and they had recommended a tissue biopsy of the mediastinal lymph nodes, which was done successfully by Dr. Luther. The results from the lymph node biopsy are pending at this time. Cardiology, Dr. Munoz was also consulted with regard to his pleural effusion, but his pleural effusions were noncardiac in nature. After the biopsy, the patient was monitored overnight and as of this morning, he has been cleared for discharge from Dr. Meyer, Pulmonary Medicine. He is hemodynamically stable, walking in the hallways, eating and drinking okay, and has no pain or shortness of breath and is not requiring oxygen. He will be discharged with close followup with Oncology clinic either with Dr. Elizalde or [place] as he wishes. He was seen and examined prior to discharge. PHYSICAL EXAMINATION: VITAL SIGNS: This morning, vital signs are stable. Blood pressure 129/85, saturating 96% on room air, in no acute distress. GENERAL: Awake, alert, and oriented x3. CHEST: Clear to auscultation bilaterally. HEART: Rate and rhythm are regular. TIME SPENT: Total time spent, 36 minutes. Job ID: [id number]
== END 2018-08-14 15:46 | disposition home or self-care (01) | DRG 803 ==
LOC: ERS 11:23 → ERHOLD 16:41 → T4-A 08-11 01:38 → OBSVTOIN 08-12 09:08
PROVIDERS: ADMIT Family Medicine; ATTEND Family Medicine
PROC: 0W993ZZ Drainage of Right Pleural Cavity, Percutaneous Approach (ICD-10-PCS; principal; 2018-08-12)
PROC: 07B73ZX Excision of Thorax Lymphatic, Percutaneous Approach, Diagnostic (ICD-10-PCS; 2018-08-13)
DX: R59.0 Localized enlarged lymph nodes (principal); J44.1 Chronic obstructive pulmonary disease with (acute) exacerbation; J90 Pleural effusion, not elsewhere classified; I25.10 Atherosclerotic heart disease of native coronary artery without angina pectoris; Z95.1 Presence of aortocoronary bypass graft; I10 Essential (primary) hypertension; E03.9 Hypothyroidism, unspecified; E11.9 Type 2 diabetes mellitus without complications; E78.5 Hyperlipidemia, unspecified
CPT/HCPCS: 36415; 36416; 71045; 71260; 74177; 80048; 80053; 82150; 82550; 82945; 83615; 83690; 83880; 83986; 84157; 84478; 84484; 85025; 85060; 87040; 87070; 87116; 87205; 87206; 88112; 88184; 88305; 88341; 88342; 89051; 93005; 93306; 94640; 96365; 96367; 96375; J0456; J0696; J1642; J1644; J1940; J1956; J2001; J2930; J3010; J7620; Q9966

== ENCOUNTER 2018-09-13 19:36 | Observation (INO) | payer MEDICARE, OTHER ==
--- NOTE | 2018-09-13 20:03 | RAD ---
2 views chest: 09/13/2018 COMPARISON: 08/12/2018 HISTORY: Shortness of breath and chest pain FINDINGS: There is a tiny pneumothorax in the left lung apex. Blunting of the costophrenic angle on t he left noted, evidence of a moderate-sized left pleural effusion. This limits assessment of the left lower lobe and lingula. Midline sternotomy wires are present. Right lung appears relatively ren r. IMPRESSION: Tiny pneumothorax on the left. Moderate left pleural effusion. Dr. Ortega made aware at 8:00 PM on 09/13/2018.
[2018-09-13 20:44] LABS: Hemoglobin 15.3 g/dL (14.0-18.0); Mean Corpuscular HGB CONC 33.9 g/dL (32.0-36.0); Mean Corpuscular Hemoglobin 30.4 pg (27.0-31.0); Mean Corpuscular Volume 89.9 fL (78.0-98.0); Mean Platelet Volume 7.6 fL (7.4-10.4); Platelet Count 222 thou/uL (130-400); RBC Distribution Width 14.3 % (11.5-14.5); Red Blood Cell (RBC) Count 5.04 mill/uL (4.70-6.10); White Blood Cell (WBC) Count 13.7 thou/uL (4.8-10.8)
[2018-09-13 20:48] LABS: ALT (SGPT) 9 U/L (8-55); AST (SGOT) 12 U/L (5-34); Albumin 4.1 g/dL (3.4-4.8); Alkaline Phosphatase 111 U/L (40-150); Anion Gap 14 mmol/L (10-20); BUN (Urea Nitrogen) 20 mg/dL (8.4-25.7); CK (CPK) 30 U/L (30-200); Calc. Creatinine Clearance 0 mL/min (70-130); Calcium 9.6 mg/dL (7.8-10.44); Carbon Dioxide 24 mmol/L (23-31); Chloride 104 mmol/L (98-107); Estimated GFR-MDRD 72; Globulin 2.1 g/dL (2.4-3.5); Glucose 206 mg/dL (83-110); Potassium 4.2 mmol/L (3.5-5.1); Protein, Total 6.2 g/dL (5.8-8.1); Sodium 138 mmol/L (136-145)
[2018-09-13 21:07] LABS: Lymphocytes 50 % (21-51); MDiff Complete? YES; Monocytes 1 % (0-10); Neutrophil 49 % (42-75); Platelet Morphology Comment Appears Adequate; RBC Morphology Normal
[2018-09-13] MEDS ORDERED: Ondansetron ODT 4 MG TAB SL PRN (22:37)
[2018-09-13] MEDS ORDERED: Acetaminophen 325 MG TAB PO PRN (22:37)
[2018-09-13] MEDS ORDERED: Ondansetron PF 4 MG/2 ML Vial IVP PRN (22:37)
[2018-09-14 01:29] VITALS: BMI 23.5
[2018-09-14] MEDS ORDERED: Ondansetron ODT 4 MG TAB PO PRN (09:51)
[2018-09-14] MEDS ORDERED: HYDROcodone/Acetaminophen 5/325 mg Tablet PO PRN (09:51)
[2018-09-14] MEDS ORDERED: hydrALAZINE 20 MG/ML VIAL SLOW IVP PRN (09:51)
[2018-09-14] MEDS ORDERED: TROLAMINE SALICYLATE TOP PRN (09:51)
[2018-09-14] MEDS ORDERED: Dextrose 5% in Water 1,000 ML IV PRN (09:51)
[2018-09-14] MEDS ORDERED: Dextrose 50% Abboject 50 ML SYRINGE SLOW IVP PRN (09:51)
[2018-09-14] MEDS ORDERED: DOCUSATE SODIUM PO PRN (09:51)
[2018-09-14] MEDS ORDERED: HumaLOG 300 UNITS/3 ML VIAL SC PRN ×2 (09:51)
[2018-09-14] MEDS ORDERED: Ondansetron PF 4 MG/2 ML Vial IVP PRN (09:51)
[2018-09-14] MEDS ORDERED: Acetaminophen 500 MG TAB PO PRN (09:51)
[2018-09-14] MEDS ORDERED: Diabetic Tussin 200 MG/10 ML UDCUP PO PRN (09:51)
[2018-09-14] MEDS ORDERED: Docusate Sodium 100 MG/10 ML UDCUP PO PRN (10:05)
--- NOTE | 2018-09-14 11:16 | RAD ---
Left decubitus view of chest: Indications left effusion FINDINGS: Pleural fluid layers dependently in the left chest on this decubitus projection. IMPRESSION: Free pleural fluid in the left chest
[2018-09-14] MEDS ORDERED: Lidocaine 1% (PF) 30 ML VIAL ONE (11:27)
--- NOTE | 2018-09-14 12:11 | RAD ---
PORTABLE CHEST: HISTORY: Thoracentesis. COMPARISON: Exam done earlier today. FINDINGS: There has been a decrease in the size of the left effusion. There continues to be evidence of a smal l left apical pneumothorax, not significantly changed. The right lung shows possible small effusion. The right lung is otherwise clear and unchanged. Ther e is left basilar atelectasis or infiltrate. IMPRESSION: 1. Residual left effusion with left basilar atelectasis. 2. Small left pneumothorax again noted. POS: [facility]
--- NOTE | 2018-09-14 12:16 | OP ---
DATE OF PROCEDURE: 09/14/2018 INDICATION: Decubitus fluid. Decubitus x-ray showed large relating fluid without any pneumothorax or hydropneumothorax. Therefore, it was felt he needed a thoracentesis. DESCRIPTION OF PROCEDURE: After obtaining informed consent, the patient was sitting upright in bed. Left posterior thorax was given chlorhexidine, 1% Xylocaine was infiltrated into the eighth intercostal space in the midscapular line. 20 mL of milky chylous fluid was removed without difficulty. Thereafter, using H1 catheter and a vacuum about a total of 1200 mL of chylous fluid was removed. This was clearly secondary to his lymphoma. Fluid sent for appropriate studies including cytology and culture. The patient otherwise tolerated the procedure well. Job ID: [id number]
[2018-09-14 12:20] LABS: Body Fluid Source Thoracentesis Fluid
[2018-09-14 12:21] LABS: BF Color Yellow; Clarity Cloudy/Turbid (Clear)
[2018-09-14 12:23] LABS: RBC Background Count 0.001; RBC Count-Automated 10000 /cumm; Tube # 3; WBC Background Count 0.01; WBC/NonHematic-Auto 3940 /cumm
[2018-09-14 12:26] LABS: Fluid, Triglycerides 467 mg/dL (Not Available); Pleural Fluid, Amylase Less than 30 U/L (Not Available); Pleural Fluid, Glucose 192 mg/dL; Pleural Fluid, LDH 162 U/L (Not Available)
[2018-09-14] MEDS: Ketorolac Tromethamine 30 MG/ML VIAL IVP SCH ×3 (13:17→23:33)
[2018-09-14] MEDS: Simethicone Chewable 80 MG TAB PO SCH ×3 (13:18→21:57)
[2018-09-14 13:33] LABS: BF Segmented Neutrophils 40 %; Cell Count Non Hematic 48 %; Eosinophils 2 %; Lymphocytes 10 %
--- NOTE | 2018-09-14 13:44 | HP ---
PRIMARY CARE PROVIDER: Dr. Falcon at the [facility] in [place], [place]. CHIEF COMPLAINT: Left-sided chest pain. HISTORY OF PRESENT ILLNESS: This is a 73-year-old male, who was recently admitted to [facility] from 08/10/2018 to 08/14/2018 with a new diagnosis of small B-cell lymphoma/chronic lymphocytic leukemia. The patient had previously undergone a right hemothorax thoracentesis with approximately 1 L of effusion removed. The patient states his respiratory status had improved after the procedure. The patient also underwent tissue biopsy and the mediastinal lymph nodes confirming the diagnosis of small B-cell lymphoma. The patient states he developed increased shortness of breath and sharp left-sided chest pain with deep inspiration within the last 24 hours. The patient denied any new trauma injury, fall, productive cough, or hemoptysis. The patient states he had some tenderness to palpation on his left rib cage over the anterior chest wall and had some relief with resting or breathing shallow. The patient denied any fever or chills, lower extremity swelling or change to his chronic medication regimen. The patient states he has been evaluated by Medical Oncology for consideration of chemo/immunotherapy for his B-cell lymphoma, however, has not proceeded with treatment and is contemplating whether he should proceed with treatment versus conservative management and monitor with surveillance scans overtime. In the emergency room, the patient underwent general evaluation including chest imaging showing evidence of a small apical pneumothorax as well as moderate-sized left pleural effusion. The patient received DuoNeb therapy and was transferred to the medical floor for evaluation. PAST MEDICAL HISTORY: 1. Small B-cell lymphoma diagnosed in 07/2018. No current treatment. 2. Bilateral pleural effusions, status post thoracentesis of the right hemithorax in 07/2018. 3. Coronary artery disease. 4. Diabetes mellitus, type 2. 5. Chronic obstructive pulmonary disease. 6. Benign prostatic hyperplasia. 7. Hypothyroidism. 8. Hypertension. 9. Hyperlipidemia. PAST SURGICAL HISTORY: 1. Status post coronary artery bypass grafting. 2. Status post thoracentesis of the right hemithorax. 3. Status post mediastinal biopsy. 4. Status post cardiac stent placement x2. 5. Status post hernia repair. CURRENT MEDICATIONS: 1. Enteric-coated aspirin 81 mg p.o. daily. 2. Vitamin B12 of 1000 mcg p.o. daily. 3. Docusate sodium one capsule p.o. daily p.r.n. 4. Cymbalta 30 mg p.o. daily. 5. Gabapentin 400 mg p.o. b.i.d. 6. Glipizide 10 mg p.o. b.i.d. 7. [place] 5/325 mg one tab p.o. q.8 hours p.r.n. 8. Levothyroxine 175 mcg p.o. daily. 9. Lisinopril/hydrochlorothiazide 20/12.5 mg 1 tab p.o. daily. 10. Metformin extended release 750 mg p.o. b.i.d. 11. Metoprolol tartrate 50 mg p.o. b.i.d. 12. Crestor 40 mg p.o. at bedtime. 13. Simethicone 160 mg p.o. p.c. at bedtime. 14. Flomax 0.4 mg p.o. daily. 15. Trazodone 50 mg p.o. at bedtime. 16. Trolamine salicylate one application topically b.i.d. p.r.n. ALLERGIES: TO SULFA. FAMILY HISTORY: Positive for hypertension. SOCIAL HISTORY: The patient resides in [place], [place]. Retired. [employer]. No alcohol, tobacco, or illicit drug use. Functional of all activities of daily living. REVIEW OF SYSTEMS: CONSTITUTIONAL: Negative for weight loss or gain, ability to conduct usual activities. SKIN: Negative for rash, itching. EYES: Negative for double vision, pain. ENT/MOUTH: Negative for nose bleeding, neck stiffness, pain, tenderness. CARDIOVASCULAR: Negative for palpitations, dyspnea on exertion, orthopnea. RESPIRATORY: Negative for shortness of breath, wheezing, cough, hemoptysis, fever or night sweats. GASTROINTESTINAL: Negative for poor appetite, abdominal pain, heartburn, nausea, vomiting, constipation, or diarrhea. GENITOURINARY: Negative for urgency, frequency, dysuria, nocturia. MUSCULOSKELETAL: Negative for pain, swelling. NEUROLOGIC/PSYCHIATRIC: Negative for anxiety, depression. ALLERGY/IMMUNOLOGIC: Negative for skin rash, bleeding tendency. Otherwise, negative except as stated per HPI. PHYSICAL EXAMINATION: VITAL SIGNS: On admission, blood pressure 137/80, pulse 84, respiratory rate 16, temperature 98.5 degrees Fahrenheit, and O2 saturation 97% on 2 L/minute by nasal cannula. GENERAL APPEARANCE: This is a 73-year-old male, alert and oriented x3, pleasant, conversant, in no acute distress. HEENT: Pupils are equal, round, and reactive to light and accommodation. Extraocular muscles are intact. No scleral icterus. No conjunctival injection. Nares patent. OP is clear. Teeth in fair repair. NECK: Supple. No cervical adenopathy. No thyromegaly. No carotid bruits. No JVD appreciated. Cervical spine with full active and passive range of motion. No meningeal signs noted. No crepitus noted. CHEST: Diminished breath sounds in the left base, otherwise clear to auscultation bilaterally. CARDIOVASCULAR: S1 and S2 without noted murmur, rub, or gallop. ABDOMEN: Rounded, soft, nontender, and nondistended. Bowel sounds are positive in all 4 quadrants. There is no hepatosplenomegaly. No abdominal bruits. No rebound or guarding appreciated. EXTREMITIES: Warm and dry with fair turgor. No clubbing, cyanosis, or asymmetric edema appreciated. Pulses are palpable distally at the dorsalis pedis, posterior tibial, and popliteal arteries bilaterally. Capillary refill less than 2 seconds. NEUROLOGIC: Cranial nerves II through XII are grossly intact. No focal or lateralizing signs appreciated. PERTINENT LABORATORY AND X-RAY FINDINGS: Basic metabolic profile within normal limits. Troponin negative x1. BNP 57. CBC showed a white blood cell count of 13.7, hemoglobin 15, hematocrit 45, platelet count 222 with normal differential. PA and lateral chest x-ray dated 09/13/2018, showed small pneumothorax in the apical region of the left hemithorax. Moderate left pleural effusion. EKG dated 09/13/2018 by my interpretation shows sinus mechanism with heart rates in the 90s. Attenuated R-waves noted in the precordial leads. Normal axis. No acute ST-T wave changes appreciated. ASSESSMENT AND PLAN: 1. Left hemithorax, apical pneumothorax. The patient will be observed on the medical floor. We will repeat PA and lateral chest x-ray currently to assess for any progression. We will consult Pulmonology Service for any further recommendations. Likely conservative management given the low volume pneumothorax demonstrated on initial chest imaging. 2. Left pleural effusion. Likely malignant in nature due to recent diagnosis of small B-cell lymphoma. We will consult Pulmonology for any further recommendations, likely total volume of pleural effusion is too low for thoracentesis. 3. Chest pain secondarily to left hemithorax, apical pneumothorax, left pleural effusion. We will provide supportive management with Toradol 30 mg IV q.6 hours p.r.n. No current evidence to suggest a cardiac etiology. 4. Small B-cell lymphoma. We will continue supportive management. Outpatient followup with Medical Oncology Service to consider treatment options versus conservative management. 5. Diabetes mellitus, type 2. Resume home regimen to include metformin 750 mg b.i.d. Insulin sliding scale for reflexive coverage. Serial Accu-Cheks before meals and at bedtime. ADA diet. 6. Hypertension. Resume home antihypertensive regimen and monitor clinical response. 7. Prophylaxis. SCDs while in bed. Pepcid 20 mg p.o. b.i.d. 8. Code status is full. Surrogate medical decision maker is the patient's aunt, Renuka Whitaker. Job ID: [id number]
--- NOTE | 2018-09-14 14:21 | RAD ---
CHEST 2 VIEWS: Date: 09/14/18 HISTORY: Follow-up pneumothorax. COMPARISON: 09/13/18. FINDINGS: Postop midline sternotomy. Moderate left pleural effusion. Persistent very tiny apical pneumothorax. Minimal linear stranding changes bilaterally, stable. IMPRESSION: Stable tiny left apical pneumothorax with moderate left pleural effusion and stable parenchymal payton es bilaterally. No significant new process. POS: TPC
--- NOTE | 2018-09-14 16:35 | CON ---
DATE OF CONSULTATION: SUBJECTIVE: Smith Hill is a 73-year-old gentleman, history of metastatic small cell lymphoma. He had a pleural effusion drained right-sided, which showed malignant cells. He had a mediastinal biopsy, which was consistent with small lymphocytic lymphoma. A local oncologist stated his chemotherapy was unapproved by his insurance. They are trying to approve his chemotherapy by his insurance. The patient is a . He is thinking of going to the [facility] for ongoing treatment. He presents with a 2-day history of sharp left-sided chest pain, worse with deep breathing and coughing, but no fever, no chills. He has slight difficulty breathing. PAST MEDICAL HISTORY: 1. Diabetes. 2. Malignant lymphoma. 3. COPD. 4. Hypertension. HOME MEDICATIONS: Included: 1. Trazodone 50. 2. Metformin 750 twice a day. 3. Glipizide 10 twice a day. 4. Cymbalta 30. 5. Gabapentin 400 twice a day. 6. Synthroid 175. 7. Lisinopril. 8. Metoprolol 50 twice a day. 9. Crestor 40. 10. Flomax 0.4. 11. Aspirin. PAST SURGICAL HISTORY: Outlined recent as mediastinoscopy, recent thoracentesis, previous bypass surgery, hernia surgery. ALLERGIES: SULFA. REVIEW OF SYSTEMS: Ten-point negative. PHYSICAL EXAMINATION: VITAL SIGNS: Sats are 97 room air, respirations 16, temp 98, blood pressure 130/80. CHEST: Revealed decreased breath sounds in left lung. Right lung unremarkable. CARDIAC: Normal S1 and S2. No gallops. ABDOMEN: No masses. IMPRESSION: Metastatic small cell lymphoma. PLAN: Try and get a decubitus to see whether he has significant amount of pneumothorax. He tells me he is having difficulty breathing, though I am some kind of surprised he has dyspnea. Plan and disposition, comfort care. Consider thoracentesis. Empiric antibiotics. We will follow. Consultation note, 70 minutes, 50% direct patient care. Job ID: [id number]
[2018-09-14] MEDS: metFORMIN XR 500 MG TAB PO SCH (18:19)
[2018-09-14] MEDS: Famotidine 20 MG TAB PO SCH (20:08)
[2018-09-14] MEDS: Gabapentin 400 MG CAP PO SCH (20:08)
[2018-09-14] MEDS: Metoprolol Tartrate 50 MG TAB PO SCH (20:08)
[2018-09-14] MEDS: glipiZIDE 5 MG TAB PO SCH (20:09)
[2018-09-14] MEDS: Benzonatate 100 MG CAP PO PRN (20:12)
[2018-09-14] MEDS ORDERED: Non-Formulary Item 1 EACH (Rosuvastatin Calcium [Crestor] 40 MG) PO SCH (21:00)
[2018-09-14] MEDS ORDERED: traZODone HCl 50 MG TAB PO SCH (21:00)
[2018-09-14] MEDS ORDERED: Rosuvastatin 20 MG TAB PO SCH (21:00)
[2018-09-14] MEDS ORDERED: Non-Formulary Item 1 EACH (Metformin Hcl [Metformin Hcl Er] 750 MG) PO SCH (21:00)
[2018-09-15] MEDS: Ketorolac Tromethamine 30 MG/ML VIAL IVP SCH ×2 (05:30→11:46)
[2018-09-15] MEDS: Benzonatate 100 MG CAP PO PRN ×2 (05:37→11:46)
[2018-09-15] MEDS ORDERED: predniSONE 20 MG TAB PO SCH (08:45)
[2018-09-15] MEDS ORDERED: DULoxetine 30 MG CAP PO SCH (09:00)
[2018-09-15] MEDS ORDERED: Lisinopril/Hydrochlorothiazide 20 mg/12.5 mg Tablet PO SCH (09:00)
[2018-09-15] MEDS ORDERED: Aspirin 81 mg Enteric Coated Tablet PO SCH (09:00)
[2018-09-15] MEDS ORDERED: Non-Formulary Item 1 EACH (Cyanocobalamin (Vitamin B-12) [Vitamin B-12] 1,000 MCG) PO SCH (09:00)
[2018-09-15] MEDS ORDERED: Tamsulosin HCl 0.4 MG CAP PO SCH (09:00)
[2018-09-15] MEDS ORDERED: Levothyroxine 175 MCG TAB PO SCH (09:00)
[2018-09-15] MEDS ORDERED: Cyanocobalamin (Vitamin B-12) 1,000 MCG TAB PO SCH (09:00)
--- NOTE | 2018-09-15 09:05 | PRG ---
DATE OF SERVICE: 09/15/2018 SUBJECTIVE: Smith Hill is a 73-year-old gentleman status post left-sided thoracentesis. Fluid was chylous. He is better, though he is still complaining of some vague left-sided knife-like pain, appears to be improved. OBJECTIVE: VITAL SIGNS: Saturations 98% on room air, temperature 98, pulse 76, blood pressure 130/74. CHEST: No wheezing or crackles. CARDIAC: Normal S1, S2. No gallops. ABDOMEN: No masses. ASSESSMENT: 1. History of small cell lymphoma. 2. Bilateral pleural effusion. 3. Left hilar thorax chest pain. PLAN: Disposition home any time. [facility] Since local, he is not being treated. I will give him a few days of prednisone to help his pleural pain. Job ID: [id number]
[2018-09-15] MEDS: Gabapentin 400 MG CAP PO SCH (09:12)
[2018-09-15] MEDS: Simethicone Chewable 80 MG TAB PO SCH (09:12)
[2018-09-15] MEDS: Famotidine 20 MG TAB PO SCH (09:13)
[2018-09-15] MEDS: Metoprolol Tartrate 50 MG TAB PO SCH (09:14)
[2018-09-15] MEDS: metFORMIN XR 500 MG TAB PO SCH (09:14)
[2018-09-15] MEDS: glipiZIDE 5 MG TAB PO SCH (09:15)
[2018-09-15 11:20] VITALS: BP 131/66; TEMP 97.8
--- NOTE | 2018-09-15 18:27 | DIS ---
DATE OF ADMISSION: 09/13/2018 DATE OF DISCHARGE: 09/15/2018 DISCHARGE DIAGNOSES: 1. Malignant left pleural effusion secondary to lymphoma, status post thoracentesis. 2. Left hemithorax, apical pneumothorax, conservative management. 3. Chest pain secondary to #1, improved. 4. Small B-cell lymphoma, pending treatment. 5. Diabetes mellitus type 2, stable. 6. Hypertension, stable. CONSULTATIONS: Dr. Plaza with Pulmonology and Critical Care Service. PERTINENT LAB AND X-RAY FINDINGS: Basic metabolic profile within normal limits. BNP 57. CBC showed a white blood cell count of 13.7, hemoglobin 15, hematocrit 45, and platelet count 222. Pleural fluid dated 09/14/2018, showed cloudy turbid solution with 3940 wbc's and 10,000 rbc's with 40% segmented neutrophils, 10% lymphocytes, 2%, eosinophils. Portable chest x-ray dated 09/13/2018, showed small apical left-sided pneumothorax with moderate left pleural effusion. Portable chest x-ray dated 09/14/2018, showed residual left-sided effusion with left basilar atelectasis. Small left pneumothorax noted. HOSPITAL COURSE: The patient was observed after presenting with dyspnea and left-sided chest pain with chest imaging confirming evidence of moderate left pleural effusion in the context of small B-cell lymphoma. The patient underwent evaluation by the Pulmonology Service, undergoing decubitus films showing a layering fluid level of effusion in the left hemithorax. The patient underwent thoracentesis with approximately 1.2 L of chylous effusion removed. The patient was placed on prednisone 20 mg daily to assist with mild pleurisy associated with the effusion. The patient was also noted with a small apical pneumothorax clinically insignificant and no specific intervention warranted. Current recommendations are to pursue Medical Oncology followup to establish care at the [facility] in [place], [place]. Likely, the patient's effusion will recur and need further thoracentesis. I have examined the patient at the time of discharge and discussed followup instructions. The patient verbalized understanding and agreement ready for discharge on 09/15/2018. DISCHARGE MEDICATIONS: 1. Enteric-coated aspirin 81 mg p.o. daily. 2. Vitamin B12 of 1000 mcg p.o. daily. 3. Cymbalta 30 mg p.o. daily. 4. Neurontin 400 mg p.o. b.i.d. 5. Glipizide 10 mg p.o. b.i.d. 6. [place] 5/325 mg one tablet p.o. q.8 hours p.r.n. 7. Levothyroxine 175 mcg p.o. daily. 8. Lisinopril/hydrochlorothiazide 20/12.5 mg, 1 tablet p.o. daily. 9. Metformin extended release 750 mg p.o. b.i.d. 10. Metoprolol tartrate 50 mg p.o. b.i.d. 11. Crestor 40 mg p.o. at bedtime. 12. Florastor 250 mg p.o. daily. 13. Simethicone 160 mg p.o. p.c. at bedtime. 14. Flomax 0.4 mg p.o. daily. 15. Trazodone 50 mg p.o. at bedtime. 16. Trolamine salicylate one application topically b.i.d. 17. Prednisone 20 mg p.o. daily x5 days. FOLLOWUP: The patient is to follow up with his primary care provider at the [facility] in [place], [place], Dr. Falcon. The patient also to follow up with [facility] in [place], [place], to establish medical oncology care. CONDITION ON DISCHARGE: Fair. ACTIVITY: Ad-ross. DIET: ADA. CODE STATUS: Full. DISPOSITION: To home, 09/15/2018. Job ID: [id number]
[2018-09-16] MEDS ORDERED: predniSONE 20 MG TAB PO SCH (08:00)
== END 2018-09-15 11:55 | disposition home or self-care (01) ==
LOC: ERS 19:36 → SURG A 22:16
PROVIDERS: ADMIT Internal Medicine; ATTEND Internal Medicine
PROC: 0W9B3ZZ Drainage of Left Pleural Cavity, Percutaneous Approach (ICD-10-PCS; principal; 2018-09-14)
DX: C91.10 Chronic lymphocytic leukemia of B-cell type not having achieved remission (principal); J91.0 Malignant pleural effusion; J93.9 Pneumothorax, unspecified; I25.10 Atherosclerotic heart disease of native coronary artery without angina pectoris; E11.9 Type 2 diabetes mellitus without complications; J44.9 Chronic obstructive pulmonary disease, unspecified; N40.0 Benign prostatic hyperplasia without lower urinary tract symptoms; E03.9 Hypothyroidism, unspecified; I10 Essential (primary) hypertension; E78.5 Hyperlipidemia, unspecified; Z95.1 Presence of aortocoronary bypass graft; Z95.5 Presence of coronary angioplasty implant and graft; Z98.890 Other specified postprocedural states; Z79.84 Long term (current) use of oral hypoglycemic drugs; Z79.899 Other long term (current) drug therapy; Z88.2 Allergy status to sulfonamides
CPT/HCPCS: 32554; 71045 ×2; 71046 ×2; 80053; 82150; 82550; 82945; 82962 ×2; 83615; 83880; 83986; 84157; 84478; 84484; 85025; 87070; 87116; 87205; 87206 ×2; 88112; 88305; 89051; 93005; 94640 ×2; 96374; 96376 ×2; 99285; G0378; 36416; 85060; J1642; J1885; J2001; J7512; J7620

== ENCOUNTER 2018-10-04 09:43 | Emergency (ER) | payer MEDICARE, OTHER ==
--- NOTE | 2018-10-04 10:12 | RAD ---
XR Chest Pa Lat STANDARD HISTORY: Dyspnea COMPARISON: Portable chest 09/14/2018 at 11:53 AM FINDINGS: Changes of median sternotomy are again seen. The heart size is stable. There has been inter keira increase in size of the left-sided pleural effusion. A moderate-sized left pleural effusion is seen on the current exam. No definite pneumothorax is seen. A small right pleural effusion is seen. T here is old granulomatous disease in the right lung. IMPRESSION: Moderate left pleural effusion
[2018-10-04 10:46] LABS: ALT (SGPT) 9 U/L (8-55); AST (SGOT) 15 U/L (5-34); Albumin 4.3 g/dL (3.4-4.8); Alkaline Phosphatase 130 U/L (40-150); Anion Gap 14 mmol/L (10-20); BUN (Urea Nitrogen) 26 mg/dL (8.4-25.7); Bilirubin, Total 1.2 mg/dL (0.2-1.2); CK (CPK) 38 U/L (30-200); Calc. Creatinine Clearance 0 mL/min (70-130); Calcium 9.7 mg/dL (7.8-10.44); Carbon Dioxide 27 mmol/L (23-31); Chloride 105 mmol/L (98-107); Estimated GFR-MDRD 75; Glucose 111 mg/dL (83-110); Potassium 4.3 mmol/L (3.5-5.1); Protein, Total 6.3 g/dL (5.8-8.1); Sodium 142 mmol/L (136-145)
[2018-10-04 10:56] LABS: Hemoglobin 15.8 g/dL (14.0-18.0); Mean Corpuscular HGB CONC 34.9 g/dL (32.0-36.0); Mean Corpuscular Hemoglobin 31.8 pg (27.0-31.0); Mean Platelet Volume 7.8 fL (7.4-10.4); Platelet Count 200 thou/uL (130-400); RBC Distribution Width 14.3 % (11.5-14.5); Red Blood Cell (RBC) Count 4.96 mill/uL (4.70-6.10); White Blood Cell (WBC) Count 13.8 thou/uL (4.8-10.8)
[2018-10-04 10:58] LABS: INR-International Normal Ratio 1.1; PTT 27.5 SEC (22.9-36.1); Prothrombin Time 13.9 SEC (12.0-14.7)
[2018-10-04 11:05] LABS: Band 1 % (5-11); Eosinophils 1 % (0-10); Lymphocytes 32 % (21-51); MDiff Complete? YES; Neutrophil 31 % (42-75); RBC Morphology Normal; Reactive Lymphocytes 35 % (0-10)
== END 2018-10-04 13:01 | disposition home or self-care (01) ==
LOC: ERS 09:43
DX: J90 Pleural effusion, not elsewhere classified (principal); I25.10 Atherosclerotic heart disease of native coronary artery without angina pectoris; I25.2 Old myocardial infarction; E03.9 Hypothyroidism, unspecified; E11.9 Type 2 diabetes mellitus without complications; E78.5 Hyperlipidemia, unspecified; F41.9 Anxiety disorder, unspecified; F32.9 Major depressive disorder, single episode, unspecified; Z79.891 Long term (current) use of opiate analgesic; Z79.899 Other long term (current) drug therapy
CPT/HCPCS: 36415; 71046; 80053; 82550; 83880; 84484; 85025; 85610; 85730; 86850; 86900; 86901; 93005

== ENCOUNTER 2018-10-11 08:15 | Inpatient (IN) | payer MEDICARE, OTHER ==
[2018-10-11 08:44] LABS: Hemoglobin 15.9 g/dL (14.0-18.0); Mean Corpuscular HGB CONC 33.2 g/dL (32.0-36.0); Mean Corpuscular Hemoglobin 30.8 pg (27.0-31.0); Mean Corpuscular Volume 92.8 fL (78.0-98.0); Mean Platelet Volume 7.7 fL (7.4-10.4); Platelet Count 240 thou/uL (130-400); RBC Distribution Width 14.4 % (11.5-14.5); Red Blood Cell (RBC) Count 5.16 mill/uL (4.70-6.10); White Blood Cell (WBC) Count 10.6 thou/uL (4.8-10.8)
[2018-10-11] MEDS ORDERED: Furosemide 40 MG/4 ML VIAL ONE (08:54)
[2018-10-11 09:06] LABS: ALT (SGPT) 8 U/L (8-55); AST (SGOT) 15 U/L (5-34); Alkaline Phosphatase 121 U/L (40-150); Anion Gap 14 mmol/L (10-20); BUN (Urea Nitrogen) 29 mg/dL (8.4-25.7); Calc. Creatinine Clearance 0 mL/min (70-130); Carbon Dioxide 25 mmol/L (23-31); Chloride 105 mmol/L (98-107); Estimated GFR-MDRD 81; Globulin 2.7 g/dL (2.4-3.5); Glucose 154 mg/dL (83-110); Potassium 4.2 mmol/L (3.5-5.1); Protein, Total 6.7 g/dL (5.8-8.1); Sodium 140 mmol/L (136-145)
[2018-10-11 09:09] LABS: Band 2 % (5-11); Eosinophils 4 % (0-10); Lymphocytes 61 % (21-51); MDiff Complete? YES; Monocytes 2 % (0-10); Neutrophil 30 % (42-75); Platelet Morphology Comment Appears Adequate; Reactive Lymphocytes 1 % (0-10)
--- NOTE | 2018-10-11 09:17 | RAD ---
CHEST 2 VIEWS: HISTORY: Shortness of breath with productive cough for 1 week. COMPARISON: 10/04/2018. FINDINGS: Stable left pleural effusion and some pleural and parenchymal opacity changes in the right base with some linear parenchymal density and pleural fluid in the left mid lung zone. Right paratracheal shelby opathy overall stable. IMPRESSION: Bilateral pleural and parenchymal opacity changes more prominent in the left base, stable. Stable rig ht paratracheal adenopathy. Stable linear parenchymal changes in the left mid lung zone. No signifi cant new process. POS: TPC
[2018-10-11] MEDS ORDERED: cefTRIAXone\\ROCEPHIN 1 GM VIAL ONE (10:28)
[2018-10-11] MEDS ORDERED: Azithromycin 500 MG VIAL ONE (11:17)
[2018-10-11] MEDS ORDERED: Acetaminophen 325 MG TAB PO PRN (12:00)
[2018-10-11] MEDS ORDERED: Ondansetron PF 4 MG/2 ML Vial IVP PRN (12:00)
[2018-10-11] MEDS ORDERED: HYDROcodone/Acetaminophen 5/325 mg Tablet PO PRN (12:07)
[2018-10-11] MEDS ORDERED: Dextrose 50% Abboject 50 ML SYRINGE SLOW IVP PRN (12:08)
[2018-10-11] MEDS ORDERED: Dextrose 5% in Water 1,000 ML IV PRN (12:08)
[2018-10-11] MEDS ORDERED: traZODone HCl 50 MG TAB PO PRN (12:31)
[2018-10-11] MEDS: Sodium Chloride 0.9% 1,000 ML IV SCH (15:58)
[2018-10-11] MEDS ORDERED: predniSONE 20 MG TAB PO SCH (16:00)
--- NOTE | 2018-10-11 17:18 | CON ---
DATE OF CONSULTATION: 10/11/2018 SERVICE: Pulmonary Medicine. REASON FOR CONSULTATION: Respiratory failure. HISTORY OF PRESENT ILLNESS: The patient is a 73-year-old white male with recent diagnosis of CLL based on a lymph node biopsy. He also was noted to have an effusion present. The right side underwent thoracentesis and was positive for malignant cells. He then had a left-sided effusion developed. Repeat thoracentesis was done, but the characteristics of this fluid was slightly different, perhaps compatible with a chylothorax. Either way, outpatient treatment is being scheduled. He returned to the clinic because of increasing shortness of breath. He was placed on some oxygen. Overnight, he feels slightly better. He has no specific complaints other than some shortness of breath and dyspnea on exertion. He denies having any fevers or night sweats. He is having weight changes. PAST MEDICAL HISTORY: 1. Small-cell lymphoma. 2. 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 3. Right-sided malignant effusion. 4. Coronary artery disease. 5. Type 2 diabetes mellitus. 6. COPD. 7. BPH. 8. Hypothyroidism. 9. Hypertension. 10. Dyslipidemia. PAST SURGICAL HISTORY: 1. Coronary artery bypass graft surgery. 2. Thoracentesis, bilateral. 3. Mediastinal lymph node biopsy. 4. Percutaneous coronary intervention. 5. Herniorrhaphy. ALLERGIES: SULFA. MEDICATIONS: List of his inpatient medications were reviewed. No specific updates were made at this time. FAMILY HISTORY: Noncontributory. SOCIAL HISTORY: Negative for alcohol, tobacco, or illicit drug use currently. He has no exposure to chemicals, dust, asbestos, or tuberculosis. He is a retired . REVIEW OF SYSTEMS: General; head, ears, eyes, nose, throat; cardiovascular; respiratory; GI; ; musculoskeletal; neurologic; and skin are negative except as mentioned in the HPI. PHYSICAL EXAMINATION: VITAL SIGNS: Afebrile, pulse 66, blood pressure 131/66, respirations 18, and saturation 96% on room air. GENERAL: The patient is awake and alert, in no apparent distress. LUNGS: Decent air entry on the right. There is a slightly prolonged expiratory phase. I do not appreciate any wheezing. There is decreased left-sided air entry. HEART: Normal rate and regular. ABDOMEN: Soft, nontender, and nondistended. Bowel sounds are positive. MUSCULOSKELETAL: No cyanosis or clubbing. No pitting in the bilateral lower extremities. NEUROLOGIC: Grossly nonfocal. LABORATORY DATA: WBC 10.6, hemoglobin 15.9, and platelets 240,000. INR 1.1. Basic metabolic profile and liver function studies are otherwise unremarkable. Troponin is negative x2. BNP is unremarkable x2. Urinalysis is unremarkable. Body fluid analyses on the right chest were reviewed. On that side, it was a lymphocyte-predominant fluid, and the flow was consistent with a SLL. The fluid on the left had different characteristics with a very few lymphocytes and had a very elevated triglyceride level, possibly consistent with a chylothorax. Cultures from those were negative to date. IMAGING STUDIES: Chest x-ray demonstrates widened stripe of the mediastinum, particularly on the right. There is a left pleural effusion, which appears to be larger, compared to the same study that was performed last month. Sternotomy wires are noted. ASSESSMENT: 1. Small lymphocytic lymphoma. 2. Malignant effusion on the right. 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 4. Chronic obstructive pulmonary disease with acute exacerbation, possible. DISCUSSION AND PLAN: We will put him on a brief course of steroids. I will schedule nebulized medications. At this point, there is no acute indication for thoracentesis as this area has previously been tapped. I think moving forward treatment for the CLL will be our most likely thing to prevent this fluid from reaccumulating. There may be a role for radiation the the mediastinum to prevent recurrence. I will place a consult to radiation oncology to get their input. If he becomes severely symptomatic and requires increasing oxygen, we can consider doing a repeat thoracentesis for symptomatic benefit. We will introduce more medium chain fatty acids into his diet to minimize fluid formation. Pulmonary will continue to follow along. 70 minutes have been devoted to this patient in various activities. I personally reviewed all imaging studies and laboratory data noted within this document. For fifty percent of this time, I was interacting with the patient at the bedside or coordinating care with the care team. For the remainder of the time I was immediately available to the patient in the hospital unit. Job ID: [id number]
--- NOTE | 2018-10-11 18:19 | HP ---
CHIEF COMPLAINT: Shortness of breath. HISTORY OF PRESENT ILLNESS: This patient is a 73-year-old male, who has a history of CLL, followed by Dr. Burks. The patient has a history of recurrent pleural effusions. He has had thoracentesis both on the right and then on the left. He had a CT scan performed in July of the chest, which revealed extensive confluent adenopathy and soft tissue mass surrounding the mid thoracic and visualized portions of the abdominal aorta encasing the aorta and suggesting a lymphoma. There is also tala hepaticus adenopathy as well as adenopathy surrounding the celiac trunk, left gastric artery, and splenic artery. There was large mediastinal lymphadenopathy and at that time a 40% pleural effusion. The patient reports that after his thoracentesis and short course of steroids, he feels better, but then as soon as the steroids are complete, he starts having symptoms again and feels significantly short of breath. He states that has been the case since July. Today, he presented with increasing shortness of breath. He was here in the emergency department 1 week ago and had similar shortness of breath and cough, did not have any significant improvement following that visit, and came back again today. He reports that he can only walk about 50 yards before he has to stop because of his inability to breathe. The patient also reports he is not eating well. He is having some trouble swallowing. He states he does not have cough or choking when he is eating. He just feels like he has low level nausea constantly and as he chews the food as he says it gets bigger the longer he chews and he just has difficulty forcing himself to swallow it. He states that did improve somewhat when he was on the steroids briefly as well. He also reports a 25-pound weight loss since May. Of note, the patient says he feels better when he is lying flat and he had one episode of fever last week. He is not on home oxygen. REVIEW OF SYSTEMS: All the systems reviewed. All pertinent positives and negatives noted in the history of present illness. 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 He has the pleural effusions occurring bilaterally. Most recently, he had a thoracentesis last month on the right. He has history of coronary artery disease, diabetes mellitus type 2, COPD, BPH, hypothyroidism, hypertension, and hyperlipidemia. PAST SURGICAL HISTORY: Status post coronary artery bypass grafting, thoracentesis on both sides at different times, status post mediastinal biopsy, coronary stents x2, and hernia repair. FAMILY HISTORY: Notable for hypertension. SOCIAL HISTORY: The patient lives in [place], [place]. He is retired. Denies alcohol, tobacco, or drugs. He still lives independently. He is full code. CURRENT MEDICATIONS: 1. Aspirin 81 mg daily. 2. Colace one daily. 3. Glipizide 10 mg b.i.d. 4. Gabapentin 400 b.i.d. 5. Hydrocodone 5/325 p.r.n. 6. Lisinopril/hydrochlorothiazide 20/12.5 daily. 7. Levothyroxine 175 mcg daily. 8. Cymbalta 30 mg daily. 9. B12 1000 mcg daily. 10. Metformin 750 mg daily. 11. Trazodone 50 mg at bedtime. 12. Tamsulosin 0.4 mg daily. 13. Simethicone 160 mg t.i.d. with meals p.r.n. 14. Rosuvastatin 40 mg at bedtime. 15. Metoprolol 50 mg b.i.d. 16. Florastor. PHYSICAL EXAMINATION: VITAL SIGNS: Initial BP 133/77, pulse 108, respirations 23, temperature is 97.5, and O2 saturation 90% on room air. Most recent BP 147/104, pulse 99, respirations 18, and O2 saturation 98% on 2 L. GENERAL APPEARANCE: Age-appropriate male, mildly tachypneic, awake, alert, oriented, very pleasant, and cooperative. HEENT: PERRL. No OP lesions. Poor dental health overall. NECK: Supple and symmetric. HEART: Regular rate and rhythm with no murmurs, gallops, or rubs. LUNGS: Clear to auscultation bilaterally with good chest wall expansion and air exchange. ABDOMEN: Soft, nontender, and nondistended. Positive bowel sounds. No masses. No organomegaly. EXTREMITIES: No cyanosis, clubbing, or edema. NEUROLOGIC: The patient is intact with no focal deficits. LABORATORY DATA: White count 10.6, hemoglobin 15.9, and platelets 240. Sodium 140, potassium 4.2, chloride 105, CO2 of 25, BUN 29, creatinine 0.91, glucose 154, lactic acid 1.5, calcium 10.0, AST 15, ALT 8, and alkaline phosphatase 121. Troponin less than 0.01. BNP 50.4. IMAGING STUDIES: Chest x-ray comparing to 10/04/2018 shows bilateral pleural and parenchymal opacities. These changes are more prominent in the base. Stable right paratracheal adenopathy. Parenchymal changes in the left mid lung zone. No new processes identified. IMPRESSION AND PLAN: 1. Possible pneumonia. Unfortunately, the patient has chronic lymphocytic leukemia and his differentials in his white cells are 61% lymphocytes, 30 neutrophils, and 2 bands. The patient clearly has some immunocompromised state, had some fever recently and has multiple chronic changes on his chest x-ray. The patient received Rocephin and azithromycin in the emergency department. We will continue with those. 2. Acute hypoxic respiratory failure, concerning for the fact that the patient has these recurrent effusions and also concerning for the extensive lymphadenopathy that could be compromising both airway and major vessel circulation. We will give supportive oxygen therapy and consult Pulmonary. 3. Chronic lymphocytic leukemia with significant thoracic and abdominal lymphadenopathy potentially causing some luminal compromise of airways or major vessels. The patient has been reluctant to treat this previously, although it appears as though it may be worth exploring more aggressive treatments given the recurrent symptomatology. 4. Possible dysphagia. It is unclear whether the patient simply has no appetite and low-grade nausea keeps him from wanting to swallow the food or if there is a mechanical issue. We will consult Speech Therapy. 5. Diabetes mellitus. Continue with his usual home regimen. 6. Coronary artery disease. Continue beta-lukas, aspirin, and statin. 7. Diabetes. Continue metformin, glipizide, Accu-Cheks, and sliding scale. 8. Hypertension. Continue lisinopril/hydrochlorothiazide. 9. Benign prostatic hypertrophy. Continue tamsulosin. Job ID: [id number]
[2018-10-11] MEDS: Rosuvastatin 20 MG TAB PO SCH (20:07)
[2018-10-11] MEDS: Gabapentin 400 MG CAP PO SCH (20:07)
[2018-10-11] MEDS: Senokot S 8.6-50 MG TAB PO SCH (20:08)
[2018-10-11] MEDS: glipiZIDE 10 MG TAB PO SCH (20:08)
[2018-10-11] MEDS: Metoprolol Tartrate 50 MG TAB PO SCH (20:08)
[2018-10-11] MEDS: HumaLOG 300 UNITS/3 ML VIAL SC PRN (20:10)
[2018-10-12] MEDS: Sodium Chloride 0.9% 1,000 ML IV SCH ×3 (03:44→20:14)
[2018-10-12] MEDS: Levothyroxine 175 MCG TAB PO SCH (05:15)
[2018-10-12 06:27] LABS: Anion Gap 13 mmol/L (10-20); BUN (Urea Nitrogen) 29 mg/dL (8.4-25.7); Calc. Creatinine Clearance 96 mL/min (70-130); Carbon Dioxide 21 mmol/L (23-31); Chloride 110 mmol/L (98-107); Estimated GFR-MDRD Greater than 90; Glucose 127 mg/dL (83-110); Potassium 4.3 mmol/L (3.5-5.1); Sodium 140 mmol/L (136-145)
[2018-10-12 07:00] LABS: Lymphocytes 25 % (21-51); MDiff Complete? YES; Mean Corpuscular HGB CONC 34.2 g/dL (32.0-36.0); Mean Corpuscular Hemoglobin 31.4 pg (27.0-31.0); Mean Corpuscular Volume 91.8 fL (78.0-98.0); Mean Platelet Volume 7.7 fL (7.4-10.4); Monocytes 1 % (0-10); Neutrophil 52 % (42-75); Platelet Count 216 thou/uL (130-400); Platelet Morphology Comment Appears Adequate; RBC Distribution Width 14.1 % (11.5-14.5); RBC Morphology Normal; Reactive Lymphocytes 22 % (0-10); Red Blood Cell (RBC) Count 4.46 mill/uL (4.70-6.10); White Blood Cell (WBC) Count 9.4 thou/uL (4.8-10.8)
[2018-10-12] MEDS: Senokot S 8.6-50 MG TAB PO SCH ×2 (08:06→20:12)
[2018-10-12] MEDS: predniSONE 20 MG TAB PO SCH (08:06)
[2018-10-12] MEDS: Tamsulosin HCl 0.4 MG CAP PO SCH (08:06)
[2018-10-12] MEDS: Gabapentin 400 MG CAP PO SCH ×2 (08:06→20:12)
[2018-10-12] MEDS: Enoxaparin Sodium 40 MG/0.4 ML SYRINGE SC SCH (08:07)
[2018-10-12] MEDS: Metoprolol Tartrate 50 MG TAB PO SCH ×2 (08:07→20:12)
[2018-10-12] MEDS: DULoxetine 30 MG CAP PO SCH (08:07)
[2018-10-12] MEDS: glipiZIDE 10 MG TAB PO SCH ×2 (08:07→20:11)
[2018-10-12] MEDS: Aspirin 81 mg Enteric Coated Tablet PO SCH (08:07)
[2018-10-12] MEDS ORDERED: cefTRIAXone\\ROCEPHIN 1 GM in Sodium Chloride 0.9% 100 ML IVPB SCH ×2 (09:00→10:00)
[2018-10-12] MEDS: metFORMIN XR 500 MG TAB PO SCH (09:55)
[2018-10-12] MEDS: Lisinopril/Hydrochlorothiazide 20 mg/12.5 mg Tablet PO SCH (09:56)
--- NOTE | 2018-10-12 10:17 | PRG ---
DATE OF SERVICE: 10/12/2018 SUBJECTIVE: Smith Hill is a 73-year-old gentleman, who was readmitted to the hospital yesterday after he presented to the ER with symptoms of shortness of breath and cough, but no fever or chills. X-ray showed a left-sided effusion, which is chylous in origin. He was told to go to the [facility] to get chemotherapy for a malignant lymphoma. He now tell me the local oncologists are willing to start treatment. This morning, he said he is feeling better. Previous history extensively well outlined. OBJECTIVE: VITAL SIGNS: His temperature is 97.9, pulse 77, respiratory rate 20, blood pressure 148/84, and saturations are 90% on 2 L. CHEST: Decreased breath sounds without any wheezing. CARDIAC: Normal S1 and S2. No gallops. ABDOMEN: No masses. LABORATORY DATA: 9000 white count, H and H 14 and 41, platelet count is 216. Lytes are normal. IMPRESSION: 1. Malignant lymphoma and bilateral pleural effusion, left being chylous. 2. Mediastinal adenopathy. Radiation treatment as soon as possible. I doubt he has pneumonia, I will probably deescalate his antibiotics tomorrow. Pulmonary will follow. Job ID: [id number]
[2018-10-12] MEDS ORDERED: Azithromycin 500 MG in Sodium Chloride 0.9% 250 ML 250 ML IVPB SCH (12:00)
--- NOTE | 2018-10-12 13:49 | RAD ---
Modified barium swallow HISTORY: Pneumonia. Dysphagia. Feeding difficulties. FINDINGS: Exam was performed in conjunction with speech pathology with multiple consistencies. Video review is available and demonstrates good bolus formation and retropulsion. Slight discoordination with thinner consistencies. Shallow penetration with thin liquids. No aspiration. Moderate amount of pooling within the valleculae with good clearance upon secondary swallowing. The esophagus below the level of the hypopharynx was not evaluated. Please see separate detailed repo rt from speech pathology.
--- NOTE | 2018-10-12 17:22 | PDOC.PN ---
- Subjective Encounter Start Date: 10/12/18 Encounter Start Time: 09:20 Pt seen for followup re: lokesh pleural effusions. Says he feels slightly better. Cough+, sputum+. - Objective Resuscitation Status - Order Detail: 10/11/18 12:00 Resuscitation Status Routine Resuscitation Status: FULL: Full Resuscitation MAR Reviewed: Yes Vital Signs & Weight: Vital Signs (12 hours) Temp Pulse Resp BP Pulse Ox 10/12/18 12:37 71 18 94 L 10/12/18 12:00 97.7 F 65 20 148/84 H 96 10/12/18 08:07 96 10/12/18 08:00 97.9 F 87 20 148/84 H 96 10/12/18 07:15 70 16 96 Weight Admit Weight 176 lb 1 oz Weight 176 lb 1 oz I&O: 10/11/18 10/12/18 10/13/18 06:59 06:59 06:59 Intake Total 465 Output Total 320 Balance 145 Result Diagrams: 10/12/18 05:57 10/12/18 05:57 Additional Labs: Accuchecks 10/12/18 10/12/18 10/12/18 16:46 10:47 04:50 POC Glucose 122 H 147 H 133 H 10/11/18 20:03 POC Glucose 222 H Labs reviewed by me Phys Exam - Physical Examination Constitutional: NAD HEENT: moist MMs Neck: supple Diminished air entry lokesh bases Cardiovascular: RRR Gastrointestinal: soft Neurological: moves all 4 limbs Psychiatric: normal affect Dx/Plan (1) Bilateral pleural effusion Code(s): J90 - PLEURAL EFFUSION, NOT ELSEWHERE CLASSIFIED Status: Acute Comment: pt to be started on radiation therapy for lymphoma (2) Lymphoma Status: Acute Comment: radiation oncology consulted (3) CAD (coronary artery disease) Code(s): I25.10 - ATHSCL HEART DISEASE OF [place] CORONARY ARTERY W/O ANG PCTRS Status: Chronic Qualifiers: Coronary Disease-Associated Artery/Lesion type: [place] artery [place] vs. transplanted heart: [place] heart Associated angina: without angina Qualified Code(s): I25.10 - Atherosclerotic heart disease of [place] coronary artery without angina pectoris Comment: stable (4) COPD (chronic obstructive pulmonary disease) Status: Chronic Qualifiers: COPD type: emphysema Emphysema type: unspecified Qualified Code(s): J43.9 - Emphysema, unspecified Comment: stable - Plan * . Review of Systems - Review of Systems Respiratory: Cough, SOB with Excertion, Sputum. negative: Dry, Shortness of Breath, Hemoptysis, Pleuritic Pain, Wheezing Cardiovascular: negative: chest pain, palpitations, orthopnea, paroxysmal nocturnal dyspnea, edema, light headedness - Medications/Allergies Allergies/Adverse Reactions: Allergies Allergy/AdvReac Type Severity Reaction Status Date / Time Sulfa (Sulfonamide Allergy "black out" Verified 10/11/18 14:30 Antibiotics) Medications: Current Medications Acetaminophen (Tylenol) 650 mg PO Q4H PRN PRN Reason: Headache/Fever/Mild Pain (1-3) Hydrocodone Bitart/Acetaminophen ([place]ongo 5/325) 1 tab PO Q4H PRN PRN Reason: Pain Albuterol/Ipratropium (Duoneb) 3 ml NEB [id number] [facility] Last Admin: 10/12/18 12:37 Dose: 3 ml Aspirin (Ecotrin) 81 mg PO DAILY [facility] Last Admin: 10/12/18 08:07 Dose: 81 mg Dextrose/Water (Dextrose 50%) 25 gm SLOW IVP PRN PRN PRN Reason: Hypoglycemia Duloxetine HCl (Cymbalta) 30 mg PO DAILY [facility] Last Admin: 10/12/18 08:07 Dose: 30 mg Enoxaparin Sodium (Lovenox) 40 mg SC 0900 [facility] Last Admin: 10/12/18 08:07 Dose: 40 mg Gabapentin (Neurontin) 400 mg PO BID [facility] Last Admin: 10/12/18 08:06 Dose: 400 mg Glipizide (Glucotrol) 10 mg PO BID [facility] Last Admin: 10/12/18 08:07 Dose: 10 mg Glucagon (Glucagon) 1 mg IM PRN PRN PRN Reason: Hypoglycemia Lisinopril/HCTZ (Prinizide 20-12.5) 1 tab PO DAILY [facility] Last Admin: 10/12/18 09:56 Dose: 1 tab Sodium Chloride (Normal Saline 0.9%) 1,000 mls @ 75 mls/hr IV .[id number] [facility] Last Admin: 10/12/18 12:50 Dose: Not Given Azithromycin 500 mg/ Sodium (Chloride) 250 mls @ 250 mls/hr IVPB 1200 [facility] Last Admin: 10/12/18 11:00 Dose: 250 mls Dextrose/Water (D5w) 1,000 mls @ 0 mls/hr IV .Q0M PRN PRN Reason: Hypoglycemia Ceftriaxone Sodium 1 gm/ (Sodium Chloride) 100 mls @ 200 mls/hr IVPB 1000 [facility] Last Admin: 10/12/18 09:55 Dose: 100 mls Insulin Human Lispro (Humalog) 0 units SC .MILD SLIDING SCALE PRN PRN Reason: Mild Correctional Scale Last Admin: 10/11/18 20:10 Dose: 3 unit Levothyroxine Sodium (Synthroid) 175 mcg PO 0600 [facility] Last Admin: 10/12/18 05:15 Dose: 175 mcg Metformin HCl (Glucophage Xr) 750 mg PO QA-[facility] Last Admin: 10/12/18 09:55 Dose: 750 mg Metoprolol Tartrate (Lopressor) 50 mg PO BID [facility] Last Admin: 10/12/18 08:07 Dose: 50 mg Ondansetron HCl (Zofran Odt) 4 mg PO Q6H PRN PRN Reason: Nausea/Vomiting Ondansetron HCl (Zofran) 4 mg IVP Q6H PRN PRN Reason: Nausea/Vomiting Prednisone (Prednisone) 40 mg PO [facility] Last Admin: 10/12/18 08:06 Dose: 40 mg Rosuvastatin Calcium (Crestor) 40 mg PO HS [facility] Last Admin: 10/11/18 20:07 Dose: 40 mg Senna/Docusate Sodium (Senokot S) 1 tab PO BID [facility] Last Admin: 10/12/18 08:06 Dose: 1 tab Tamsulosin HCl (Flomax) 0.4 mg PO DAILY [facility] Last Admin: 10/12/18 08:06 Dose: 0.4 mg Trazodone HCl (Desyrel) 50 mg PO HS PRN PRN Reason: Insomnia
--- NOTE | 2018-10-12 18:20 | CON ---
DATE OF CONSULTATION: 10/12/2018 REASON FOR CONSULTATION: Mr. Hill is a 73-year-old gentleman, who has been diagnosed with CLL/small lymphocytic lymphoma with recurrent pleural effusions. I was asked to see him for consideration of radiation therapy. HISTORY OF PRESENT ILLNESS: Mr. Hill states that May was when he first began experiencing cold symptoms and this has slowly worsened since that time. He was hospitalized for pneumonia in July and was found to have a right-sided pleural effusion. He did undergo mediastinoscopy and biopsy, which returned the diagnosis of small B-cell lymphoma consistent with chronic lymphocytic leukemia/small lymphocytic lymphoma. He had pleurocentesis of his right pleural effusion, which also showed malignant cells consistent with lymphoma. CT of the chest, abdomen, and pelvis showed bilateral pleural effusions. There was mediastinal adenopathy. There was a soft tissue mass around the descending aorta into the retroperitoneum all the way down to the aortic bifurcation. There was tala hepatis adenopathy. Again, this is all consistent with leukemia/lymphoma. He did see Dr. Burks as an outpatient and plan was to start him on chemotherapy next week. He was admitted yesterday because of recurrent problems with shortness of breath and pleural effusion. I was asked to see him for consideration of radiation therapy. 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 Presently, he reports his breathing is much improved since being admitted to the hospital. He has no orthopnea, but does have dyspnea on exertion at 20 to 30 feet. He does have a cough, which is productive only of occasional clear phlegm. He has had decreased appetite and some nausea and a 20-pound weight loss. He also reports some occasional difficulty with swallowing. He denies any fever or night sweats at the present time. He did have a fever up to 101 last week. He denies any enlarged lymph nodes. He voices no other complaints. PAST MEDICAL HISTORY: 1. Coronary artery disease, status post coronary stent placement x2. 2. Bilateral inguinal hernia repair. 3. Hypertension. 4. Diabetes. 5. COPD. 6. BPH. 7. Hypothyroidism. 8. Small lymphocytic lymphoma/CLL as mentioned above. MEDICATIONS: 1. Aspirin. 2. Azithromycin. 3. Ceftriaxone. 4. Cymbalta. 5. Lovenox. 6. Neurontin. 7. Synthroid. 8. Lisinopril/hydrochlorothiazide. 9. Metoprolol. 10. Metformin. 11. Prednisone. 12. Zofran p.r.n. 13. Flomax. ALLERGIES: SULFA DRUGS, WHICH CAUSED HIM TO PASS OUT. SOCIAL HISTORY: He has no cigarette use at the present. He previously chewed tobacco, but has not done so for the past six months. He has no alcohol use at the present. He lives in [place], [place], by himself. FAMILY HISTORY: His mother at age 70 from complications of diabetes. His father at age 65 from heart disease. There is no family history of lymphoma. He had a paternal aunt with colon cancer and her son (cousin) had colon cancer also. There is no other family history of malignancy. REVIEW OF SYSTEMS: Positive for diarrhea, which he relates to the antibiotics. Remainder of 12-system review of systems is otherwise negative. PHYSICAL EXAMINATION: VITAL SIGNS: Height 62 inches, weight 176 pounds, blood pressure 148/84, pulse 65, respirations 20, temperature 97.7, and O2 saturation 96% on room air. GENERAL: He is alert and oriented and in no apparent distress. He is thin in appearance. Karnofsky performance status is 70%. EYES: Pupils equal, round, and reactive to light. EOMs are intact. ENT: Oral cavity and oropharynx without lesion or erythema. Palate elevates symmetrically. Gingiva is intact. There is no enlargement of Waldeyer's ring. NECK: Supple without preauricular, submandibular, cervical or supraclavicular adenopathy. No thyromegaly. Larynx midline. LUNGS: Breathing nonlabored. Clear to auscultation on the right and clear to percussion on the left. There are diminished breath sounds in the left lower lobe. There is dullness to percussion over the left lower lobe. CARDIOVASCULAR/HEART: Regular rate and rhythm without murmur. No lower extremity edema. BACK: No tenderness on fist percussion of his spine. LYMPHATIC: No axillary or inguinal adenopathy. ABDOMEN: Soft, nontender, and nondistended without mass or hepatosplenomegaly. Liver percusses to normal size. SKIN: Without rash or purpura. NEUROLOGIC: Cranial nerves 2 through 12 grossly intact. Motor strength is 5/5 in both upper and lower extremities in all muscle groups tested. Reflexes are diminished, but symmetrical. Gait is not tested. LABORATORY DATA: Pathology showed CLL/small lymphocytic lymphoma. CBC revealed a white blood cell count of 9400 with a hemoglobin of 14.0, hematocrit of 41.0, and platelet count of 216,000. Differential showed 52% neutrophils and 25% lymphocytes. RADIOLOGIC DATA: CT scan of the chest, abdomen, and pelvis from late July was personally reviewed. Again, he had bilateral pleural effusions. He did have mediastinal adenopathy. He did have a soft tissue mass around the descending aorta in the lower chest, extending all the way down into the abdomen and root of the mesentery/retroperitoneum. This extended down to the aortic bifurcation. There is tala hepatis adenopathy. ASSESSMENT: Mr. Hill is a 73-year-old gentleman with recurrent pleural effusions, related to his CLL/small lymphocytic lymphoma. 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 His pleural effusion on the right did show malignant cells. I do think that his shortness of breath are related to his CLL/small lymphocytic lymphoma and his pleural effusions. PLAN: I had a discussion with Mr. Hill regarding his diagnosis, prognosis, prognostic factors, and treatment options. We discussed the significance of his pathology. At the present time, his breathing difficulties seemed to be more related to his recurrent effusions. His effusions are clearly related to his disease of CLL/small lymphocytic lymphoma. He was about to start chemotherapy next week. He is going to be evaluated by Medical Oncology, and hopefully, they will be able to initiate chemotherapy while he is here in the hospital. At the present time, I am not sure that there is any role for radiation therapy. Radiation can certainly be given in palliation and this disease is very responsive to radiation. 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 I am hopeful that with the initiation of chemotherapy that his CLL/small lymphocytic lymphoma will respond to that therapy and that these effusions will resolve on their own. I will discuss the case with Medical Oncology after they have evaluated the patient. We will formulate the treatment plan. If there appears to be any role for radiation therapy, then we will consider that, but at the present time, I think radiation will be reserved for the future for potential palliation that has not responded to the chemotherapy. This was discussed with Mr. Hill. Time was taken to answer all of his questions. Thank you for asking me to see this pleasant gentleman. Job ID: [id number]
--- NOTE | 2018-10-12 19:38 | CON ---
DATE OF CONSULTATION: HISTORY OF PRESENT ILLNESS: This is a 73-year-old male, a , who was diagnosed with a small lymphocytic lymphoma in July 2018, when he presented with shortness of breath and was found to have extensive confront adenopathy in chest and also in the abdomen. He also was found to have pleural effusion and so far has thoracentesis x2. The patient is supposed to be started on Rituxan and ibrutinib. This has not happened because of insurance approval. The patient was admitted at this time with shortness of breath. Chest x-ray showed bilateral pleural effusions, more pronounced on the left side. The patient denies of fever. He continues to lose weight. His main complaint has been shortness of breath. CURRENT MEDICATIONS: Include, 1. Azithromycin. 2. Ceftriaxone. PHYSICAL EXAMINATION: GENERAL: The patient appears chronically ill. VITAL SIGNS: Temperature 97.9, pulse 81, respirations 18, and blood pressure 148/84. HEENT: Unremarkable. There is no significant peripheral adenopathy. CHEST: Dullness at both bases, especially on the left base. HEART: Regular rhythm. S1 and S2. ABDOMEN: Soft without hepatosplenomegaly. EXTREMITIES: Without pedal edema. LABORATORY DATA: CBC shows WBC 9400, hemoglobin 14, and platelet count of 216,000. Differential shows 52% neutrophils and 25% lymphocytes. Chemistry profile shows normal sodium, potassium, creatinine, and calcium. IgG level on 08/19/2018 was 629. Chest x-ray from 10/11/2018 shows bilateral pleural effusions; pleural and parenchymal opacity, more pronounced on the left. It also shows right paratracheal adenopathy. ASSESSMENT AND RECOMMENDATIONS: This patient has a small cell lymphoma/chronic lymphocytic leukemia. He has colorless effusion and he needs to be started on treatment. I will discuss this with Dr. Burks and also with case managers tomorrow. If ibrutinib cannot be obtained in a reasonable timeframe, we might have to change his treatment just to get a handle on recurrent pleural effusion. Thanks very much for allowing me to participate in this patient's care. The patient will be followed by Oncology Service. Job ID: [id number]
[2018-10-12] MEDS: Rosuvastatin 20 MG TAB PO SCH (20:11)
[2018-10-13] MEDS: Levothyroxine 175 MCG TAB PO SCH (05:01)
[2018-10-13] MEDS: Sodium Chloride 0.9% 1,000 ML IV SCH ×4 (05:13→23:17)
[2018-10-13] MEDS ORDERED: Loperamide HCl 2 MG CAP PO PRN (08:37)
[2018-10-13] MEDS ORDERED: predniSONE 20 MG TAB PO SCH (08:37)
--- NOTE | 2018-10-13 09:37 | PRG ---
DATE OF SERVICE: 10/13/2018 SUBJECTIVE: He is having pain and profuse diarrhea this morning. No fevers or chills. He is weak. OBJECTIVE: VITAL SIGNS: Temperature 97, pulse 70, respirations 20, and blood pressure 140/65. CHEST: Decreased breath sounds in the left, and right unremarkable. CARDIAC: Normal S1 and S2. No gallops. ABDOMEN: No masses. LABORATORY DATA: All his cultures are negative. His white count is only 9000. Lytes are normal. IMPRESSION: 1. Left pleural effusion, chylous, secondary to lymphoma. No evidence of any pneumonia. 2. Diarrhea. 3. Severe deconditioning. PLAN: Discontinue all antibiotics. Control diarrhea. PT and supportive care. Await input from Oncology. Job ID: [id number]
[2018-10-13] MEDS: predniSONE 20 MG TAB PO SCH ×2 (09:45→09:58)
[2018-10-13] MEDS: glipiZIDE 10 MG TAB PO SCH ×2 (09:46→21:48)
[2018-10-13] MEDS: Lisinopril/Hydrochlorothiazide 20 mg/12.5 mg Tablet PO SCH (09:46)
[2018-10-13] MEDS: DULoxetine 30 MG CAP PO SCH (09:46)
[2018-10-13] MEDS: Gabapentin 400 MG CAP PO SCH ×2 (09:46→22:14)
[2018-10-13] MEDS: Tamsulosin HCl 0.4 MG CAP PO SCH (09:47)
[2018-10-13] MEDS: metFORMIN XR 500 MG TAB PO SCH (09:47)
[2018-10-13] MEDS: Aspirin 81 mg Enteric Coated Tablet PO SCH (09:47)
[2018-10-13] MEDS: Metoprolol Tartrate 50 MG TAB PO SCH ×2 (09:47→21:34)
[2018-10-13] MEDS: Enoxaparin Sodium 40 MG/0.4 ML SYRINGE SC SCH (09:48)
[2018-10-13] MEDS: Senokot S 8.6-50 MG TAB PO SCH ×2 (09:48→21:35)
--- NOTE | 2018-10-13 15:08 | PDOC.PN ---
- Subjective Encounter Start Date: 10/13/18 Encounter Start Time: 09:00 - Objective Resuscitation Status - Order Detail: 10/11/18 12:00 Resuscitation Status Routine Resuscitation Status: FULL: Full Resuscitation MAR Reviewed: Yes Vital Signs & Weight: Vital Signs (12 hours) Temp Pulse Resp BP BP Pulse Ox 10/13/18 11:34 70 16 95 10/13/18 09:46 72 149/65 H 10/13/18 08:00 95 10/13/18 07:58 97.7 F 72 20 149/65 H 20 L 10/13/18 06:08 65 16 95 10/13/18 04:00 97.6 F 65 18 160/80 H 92 L Weight Admit Weight 176 lb 1 oz Weight 176 lb 1 oz I&O: 10/12/18 10/13/18 10/14/18 06:59 06:59 06:59 Intake Total 465 1968 Output Total 320 Balance 145 1968 Result Diagrams: 10/12/18 05:57 10/12/18 05:57 Additional Labs: Accuchecks 10/13/18 10/13/18 10/13/18 12:05 05:34 05:04 POC Glucose 64 L 97 50 L* 10/12/18 10/12/18 20:22 16:46 POC Glucose 160 H 122 H Labs reviewed by me Phys Exam - Physical Examination Constitutional: NAD HEENT: moist MMs Neck: supple Respiratory: clear to auscultation bilateral Cardiovascular: RRR, no rub Gastrointestinal: soft, no distention Neurological: moves all 4 limbs Psychiatric: normal affect Dx/Plan (1) Bilateral pleural effusion Code(s): J90 - PLEURAL EFFUSION, NOT ELSEWHERE CLASSIFIED Status: Acute Comment: Plan to start chemotherapy for lymphoma (recurrent pleural effusions) (2) Lymphoma Status: Acute Comment: pt to start chemotherapy (3) CAD (coronary artery disease) Code(s): I25.10 - ATHSCL HEART DISEASE OF [place] CORONARY ARTERY W/O ANG PCTRS Status: Chronic Qualifiers: Coronary Disease-Associated Artery/Lesion type: [place] artery [place] vs. transplanted heart: [place] heart Associated angina: without angina Qualified Code(s): I25.10 - Atherosclerotic heart disease of [place] coronary artery without angina pectoris Comment: stable (4) COPD (chronic obstructive pulmonary disease) Status: Chronic Qualifiers: COPD type: emphysema Emphysema type: unspecified Qualified Code(s): J43.9 - Emphysema, unspecified Comment: stable - Plan * . Review of Systems - Review of Systems Respiratory: Cough, SOB with Excertion. negative: Dry, Shortness of Breath, Hemoptysis, Pleuritic Pain, Sputum, Wheezing Cardiovascular: negative: chest pain, palpitations, orthopnea, paroxysmal nocturnal dyspnea, edema, light headedness - Medications/Allergies Allergies/Adverse Reactions: Allergies Allergy/AdvReac Type Severity Reaction Status Date / Time Sulfa (Sulfonamide Allergy "black out" Verified 10/11/18 14:30 Antibiotics) Medications: Current Medications Acetaminophen (Tylenol) 650 mg PO Q4H PRN PRN Reason: Headache/Fever/Mild Pain (1-3) Hydrocodone Bitart/Acetaminophen ([place] 5/325) 1 tab PO Q4H PRN PRN Reason: Pain Albuterol/Ipratropium (Duoneb) 3 ml NEB [id number] [facility] Last Admin: 10/13/18 11:34 Dose: 3 ml Aspirin (Ecotrin) 81 mg PO DAILY [facility] Last Admin: 10/13/18 09:47 Dose: 81 mg Dextrose/Water (Dextrose 50%) 25 gm SLOW IVP PRN PRN PRN Reason: Hypoglycemia Duloxetine HCl (Cymbalta) 30 mg PO DAILY [facility] Last Admin: 10/13/18 09:46 Dose: 30 mg Enoxaparin Sodium (Lovenox) 40 mg SC 0900 [facility] Last Admin: 10/13/18 09:48 Dose: 40 mg Gabapentin (Neurontin) 400 mg PO BID [facility] Last Admin: 10/13/18 09:46 Dose: 400 mg Glipizide (Glucotrol) 10 mg PO BID [facility] Last Admin: 10/13/18 09:46 Dose: 10 mg Glucagon (Glucagon) 1 mg IM PRN PRN PRN Reason: Hypoglycemia Lisinopril/HCTZ (Prinizide 20-12.5) 1 tab PO DAILY [facility] Last Admin: 10/13/18 09:46 Dose: 1 tab Sodium Chloride (Normal Saline 0.9%) 1,000 mls @ 75 mls/hr IV .[id number] [facility] Last Admin: 10/13/18 09:54 Dose: 1,000 mls Dextrose/Water (D5w) 1,000 mls @ 0 mls/hr IV .Q0M PRN PRN Reason: Hypoglycemia Insulin Human Lispro (Humalog) 0 units SC .MILD SLIDING SCALE PRN PRN Reason: Mild Correctional Scale Last Admin: 10/11/18 20:10 Dose: 3 unit Levothyroxine Sodium (Synthroid) 175 mcg PO 0600 [facility] Last Admin: 10/13/18 05:01 Dose: 175 mcg Loperamide HCl (Imodium) 2 mg PO DAILY PRN PRN Reason: Diarrhea/Loose Stools Last Admin: 10/13/18 09:45 Dose: 2 mg Metformin HCl (Glucophage Xr) 750 mg PO [facility] Last Admin: 10/13/18 09:47 Dose: 750 mg Metoprolol Tartrate (Lopressor) 50 mg PO BID [facility] Last Admin: 10/13/18 09:47 Dose: 50 mg Ondansetron HCl (Zofran Odt) 4 mg PO Q6H PRN PRN Reason: Nausea/Vomiting Ondansetron HCl (Zofran) 4 mg IVP Q6H PRN PRN Reason: Nausea/Vomiting Prednisone (Prednisone) 20 mg PO [facility] Last Admin: 10/13/18 09:45 Dose: 20 mg Rosuvastatin Calcium (Crestor) 40 mg PO HS [facility] Last Admin: 10/12/18 20:11 Dose: 40 mg Senna/Docusate Sodium (Senokot S) 1 tab PO BID [facility] Last Admin: 10/13/18 09:48 Dose: Not Given Tamsulosin HCl (Flomax) 0.4 mg PO DAILY [facility] Last Admin: 10/13/18 09:47 Dose: 0.4 mg Trazodone HCl (Desyrel) 50 mg PO HS PRN PRN Reason: Insomnia
--- NOTE | 2018-10-13 15:58 | PQF ---
PRANEETH CORCORAN, ALICIA LEMUS [id number] CLINICAL DOCUMENTATION IMPROVEMENT CLARIFICATION FORM: ICD-10 Updated PLEASE DO AN ADDENDUM TO THE PROGRESS NOTE WITH ANY DOCUMENTATION UPDATES OR ADDITIONS AND CARRY THROUGH TO DC SUMMARY. THANK YOU. DATE: 10/12/18, 10/13/18 ATTN: DR. Norman CAIN; DR. Yudy RANDALL Please exercise your independent, professional judgment in responding to the clarification form. Clinical indicators are provided on the bottom of this form for your review. Please check appropriate box(s): [ ] Pneumonia secondary to (specify organism / underlying disease) [ x ] Simple Pneumonia (community acquired - nosocomial) [ ] Other diagnosis [ ] Unable to determine In addition, please specify: Present on Admission (POA): [ x ] Yes [ ] No [ ] Unable to determine For continuity of documentation, please document condition throughout progress notes and discharge summary. Thank You. CLINICAL INDICATORS - SIGNS / SYMPTOMS / LABS 10/11 ED PHYSICIAN DX PULMONOLOGY INFILTRATE, HYPOXIA 10/11 H & P(ADRIANA) IMPRESSION AND PLAN: 1) POSSIBLE PNEUMONIA. UNFORTUNATELY , THE PATIENT HAS CHRONIC LEUKEMIA AND HIS DIFFERENTIALS IN HIS WHITE CELLS ARE 61% LYMPHOCYTES, 30 NEUTROPHILS, AND 2 BANDS. THE PT CLEARLY HAS SOME IMMUNOCOMPROMISED STATE, HAD SOME FEVER RECENTLY AND HAS MULTIPLE CHRONIC CHANGES ON HIS CHEST X RAY. 10/11 CHEST X-RAY: IMPRESSION BILATERAL PLEURAL AND PARENCHYMAL OPACITY CHANGES MORE PROMINENT IN THE LEFT BASE. 10/11 CONSULT (TRISTIAN) ASSESSMENT: 2). MALIGNANT EFFUSION ON THE RIGHT 10/12 CONSULT- SPEECH THERAPY BARIUM SWALLOW FOR DYSPHAGIA NO FURTHER MENTION TO DATE OF PNEUMONIA RISK: CHRONIC LYMPHOCYTIC LEUKEMIA (H & P) ACUTE RESP FAILURE W HYPOXIA (H & P) TREATMENTS ROCEPHIN IV (ED- PRESENT AZITHROMYCIN IV(ED - PRESENT THANK YOU! ABBEY (This form is maintained as a part of the permanent medical record) 2014 [employer]. All Rights Reserved KIM [phone] [facility]
[2018-10-13] MEDS: Rosuvastatin 20 MG TAB PO SCH (21:35)
[2018-10-14] MEDS: Levothyroxine 175 MCG TAB PO SCH (05:41)
[2018-10-14] MEDS: Enoxaparin Sodium 40 MG/0.4 ML SYRINGE SC SCH (08:20)
[2018-10-14] MEDS: Gabapentin 400 MG CAP PO SCH ×2 (08:21→21:13)
[2018-10-14] MEDS: metFORMIN XR 500 MG TAB PO SCH (08:21)
[2018-10-14] MEDS: Lisinopril/Hydrochlorothiazide 20 mg/12.5 mg Tablet PO SCH (08:22)
[2018-10-14] MEDS: Tamsulosin HCl 0.4 MG CAP PO SCH (08:23)
[2018-10-14] MEDS: glipiZIDE 10 MG TAB PO SCH (08:23)
[2018-10-14] MEDS: Aspirin 81 mg Enteric Coated Tablet PO SCH (08:23)
[2018-10-14] MEDS: Metoprolol Tartrate 50 MG TAB PO SCH ×2 (08:23→21:12)
[2018-10-14] MEDS: predniSONE 20 MG TAB PO SCH (08:23)
[2018-10-14] MEDS: DULoxetine 30 MG CAP PO SCH (08:23)
[2018-10-14] MEDS: Senokot S 8.6-50 MG TAB PO SCH ×2 (08:23→19:41)
--- NOTE | 2018-10-14 09:35 | PRG ---
DATE OF SERVICE: 10/14/2018 SUBJECTIVE: This morning awake, alert, and responsive. He is on the Oncology floor, chemotherapy for lymphoma. OBJECTIVE: VITAL SIGNS: Sats are 94% on a liter, blood pressure 130/64, pulse 74, temperature 97.5. CHEST: No shortness of breath. CHEST: Decreased breath sounds, left base. Right lung unremarkable. CARDIAC: Normal S1, S2. No gallops. ABDOMEN: Soft without masses. IMPRESSION: 1. 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 2. Extensive mediastinal hilar adenopathy, stable. DISPOSITION: As per Oncology. no need for thoracentesis unless he becomes more symptomatic. Incidentally, his echo shows his EF was 65. Job ID: [id number] [facility]
[2018-10-14] MEDS ORDERED: Palonosetron HCl 0.25 MG in Sodium Chloride 0.9% 50 ML IVPB SCH (11:00)
[2018-10-14] MEDS ORDERED: Dexamethasone 20 MG in Sodium Chloride 0.9% 50 ML IVPB SCH (11:00)
--- NOTE | 2018-10-14 11:18 | PDOC.PN ---
- Subjective Encounter Start Date: 10/14/18 Encounter Start Time: 11:00 Subjective: gets exertional sob, no chest pain -: will get his first dose of chemo today - Objective Resuscitation Status - Order Detail: 10/11/18 12:00 Resuscitation Status Routine Resuscitation Status: FULL: Full Resuscitation MAR Reviewed: Yes Vital Signs & Weight: Vital Signs (12 hours) Temp Pulse Resp BP BP BP Pulse Ox 10/14/18 08:22 74 134/63 10/14/18 08:00 97.5 F L 77 20 134/63 94 L 10/14/18 06:22 74 16 94 L 10/14/18 03:33 96.2 F L 56 L 12 128/75 94 L 10/13/18 23:46 98.2 F 63 20 126/67 94 L Weight Admit Weight 176 lb 1 oz Weight 176 lb 1 oz I&O: 10/13/18 10/14/18 10/15/18 06:59 06:59 06:59 Intake Total 1968 240 840 Output Total 200 200 Balance 1968 40 640 Result Diagrams: 10/12/18 05:57 10/12/18 05:57 Additional Labs: Accuchecks 10/14/18 10/13/18 10/13/18 05:37 21:48 16:40 POC Glucose 93 126 H 138 H 10/13/18 12:05 POC Glucose 64 L Phys Exam - Physical Examination HEENT: PERRLA, moist MMs Neck: no JVD, supple Respiratory: no wheezing, no rales Cardiovascular: RRR, no significant murmur Gastrointestinal: soft, non-tender, positive bowel sounds Musculoskeletal: no edema, pulses present Neurological: non-focal, moves all 4 limbs Psychiatric: normal affect, A&O x 3 Dx/Plan (1) Lymphoma Status: Acute Qualifiers: 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 transplanted heart: [place] heart Associated angina: without angina Qualified Code(s): I25.10 - Atherosclerotic heart disease of [place] coronary artery without angina pectoris Comment: stable (4) COPD (chronic obstructive pulmonary disease) Status: Chronic Qualifiers: COPD type: emphysema Emphysema type: unspecified Qualified Code(s): J43.9 - Emphysema, unspecified Comment: stable - Plan hemostable, prednisone, nebs -: will be getting his first chemotherapy today -: continue asp, prinizide, lopressor, crestor -: glipizide, metformin, synthroid -: mobilize as tolerated * . Review of Systems - Medications/Allergies Allergies/Adverse Reactions: Allergies Allergy/AdvReac Type Severity Reaction Status Date / Time Sulfa (Sulfonamide Allergy "black out" Verified 10/11/18 14:30 Antibiotics) Medications: Current Medications Acetaminophen (Tylenol) 650 mg PO Q4H PRN PRN Reason: Headache/Fever/Mild Pain (1-3) Acetaminophen (Tylenol) 1,000 mg PO ONE [facility] Stop: 10/15/18 20:00 Hydrocodone Bitart/Acetaminophen ([place] 5/325) 1 tab PO Q4H PRN PRN Reason: Pain Albuterol/Ipratropium (Duoneb) 3 ml NEB [id number] [facility] Last Admin: 10/14/18 06:22 Dose: 3 ml Aspirin (Ecotrin) 81 mg PO DAILY [facility] Last Admin: 10/14/18 08:23 Dose: 81 mg Dextrose/Water (Dextrose 50%) 25 gm SLOW IVP PRN PRN PRN Reason: Hypoglycemia Duloxetine HCl (Cymbalta) 30 mg PO DAILY [facility] Last Admin: 10/14/18 08:23 Dose: 30 mg Enoxaparin Sodium (Lovenox) 40 mg SC 0900 [facility] Last Admin: 10/14/18 08:20 Dose: 40 mg Gabapentin (Neurontin) 400 mg PO BID [facility] Last Admin: 10/14/18 08:21 Dose: 400 mg Glipizide (Glucotrol) 10 mg PO BID [facility] Last Admin: 10/14/18 08:23 Dose: 10 mg Glucagon (Glucagon) 1 mg IM PRN PRN PRN Reason: Hypoglycemia Lisinopril/HCTZ (Prinizide 20-12.5) 1 tab PO DAILY [facility] Last Admin: 10/14/18 08:22 Dose: 1 tab Sodium Chloride (Normal Saline 0.9%) 1,000 mls @ 75 mls/hr IV .[id number] [facility] Last Admin: 10/13/18 23:17 Dose: 1,000 mls Dextrose/Water (D5w) 1,000 mls @ 0 mls/hr IV .Q0M PRN PRN Reason: Hypoglycemia Palonosetron 0.25 mg/ Sodium (Chloride) 55 mls @ 165 mls/hr IVPB ONE [facility] Stop: 10/14/18 20:00 Dexamethasone 20 mg/ Sodium (Chloride) 55 mls @ 165 mls/hr IVPB ONE [facility] Stop: 10/14/18 20:00 Vincristine Sulfate 2 mg/ (Syringe) 2 mls @ 0 mls/hr IVP ONE [facility] Stop: 10/14/18 20:00 Cyclophosphamide 1 gm/Cyclophosphamide 500 mg/Sodium Chloride 325 mls @ 433.333 mls/hr IVPB ONE [facility] Stop: 10/14/18 20:00 Rituximab 500 mg/ Rituximab (275 mg/ Sodium Chloride) 577.5 mls @ 0 mls/hr IVPB ONE [facility] Stop: 10/15/18 20:00 Diphenhydramine HCl 25 mg/ (Sodium Chloride) 50.5 mls @ 151.5 mls/hr IVPB ONE [facility] Stop: 10/15/18 20:00 Insulin Human Lispro (Humalog) 0 units SC .MILD SLIDING SCALE PRN PRN Reason: Mild Correctional Scale Last Admin: 10/11/18 20:10 Dose: 3 unit Levothyroxine Sodium (Synthroid) 175 mcg PO 0600 [facility] Last Admin: 10/14/18 05:41 Dose: 175 mcg Loperamide HCl (Imodium) 2 mg PO DAILY PRN PRN Reason: Diarrhea/Loose Stools Last Admin: 10/13/18 09:45 Dose: 2 mg Metformin HCl (Glucophage Xr) 750 mg PO QAM-WM [facility] Last Admin: 10/14/18 08:21 Dose: 750 mg Metoprolol Tartrate (Lopressor) 50 mg PO BID [facility] Last Admin: 10/14/18 08:23 Dose: 50 mg Ondansetron HCl (Zofran Odt) 4 mg PO Q6H PRN PRN Reason: Nausea/Vomiting Ondansetron HCl (Zofran) 4 mg IVP Q6H PRN PRN Reason: Nausea/Vomiting Prednisone (Prednisone) 20 mg PO QAM-WM [facility] Last Admin: 10/14/18 08:23 Dose: 20 mg Prednisone (Prednisone) 100 mg PO QAM-WM [facility] Stop: 10/18/18 08:01 Rosuvastatin Calcium (Crestor) 40 mg PO HS [facility] Last Admin: 10/13/18 21:35 Dose: 40 mg Senna/Docusate Sodium (Senokot S) 1 tab PO BID [facility] Last Admin: 10/14/18 08:23 Dose: 1 tab Tamsulosin HCl (Flomax) 0.4 mg PO DAILY [facility] Last Admin: 10/14/18 08:23 Dose: 0.4 mg Trazodone HCl (Desyrel) 50 mg PO HS PRN PRN Reason: Insomnia
[2018-10-14] MEDS ORDERED: VINCRISTINE SULFATE IVP SCH (11:30)
[2018-10-14] MEDS ORDERED: Cyclophosphamide 1 GM, Cyclophosphamide 500 MG in Sodium Chloride 0.9% 250 ML 250 ML IVPB SCH (11:30)
[2018-10-14] MEDS ORDERED: VINCRISTINE SULFATE IVPB SCH (12:30)
[2018-10-14] MEDS ORDERED: DEXTROSE 5% IVPB SCH (12:30)
[2018-10-14] MEDS ORDERED: WATER IVPB SCH (12:30)
[2018-10-14] MEDS: Sodium Chloride 0.9% 1,000 ML IV SCH (12:59)
[2018-10-14] MEDS ORDERED: vinCRIStine Sulfate 2 MG in Sodium Chloride 0.9% 50 ML IVPB SCH (13:30)
[2018-10-14] MEDS ORDERED: Acetaminophen 500 MG TAB PO SCH (15:45)
[2018-10-14] MEDS ORDERED: RITUXIMAB IVPB SCH (16:00)
[2018-10-14] MEDS ORDERED: diphenhydrAMINE 25 MG in Sodium Chloride 0.9% 50 ML IVPB SCH (16:00)
[2018-10-14] MEDS ORDERED: SODIUM CHLORIDE 0.9% IVPB SCH (16:00)
[2018-10-14] MEDS: metFORMIN 500 MG TAB PO SCH (17:29)
[2018-10-14] MEDS: Rosuvastatin 20 MG TAB PO SCH (21:13)
[2018-10-15 05:06] LABS: Band 3 % (5-11); Hemoglobin 13.6 g/dL (14.0-18.0); Lymphocytes 59 % (21-51); MDiff Complete? YES; Mean Corpuscular Volume 91.2 fL (78.0-98.0); Mean Platelet Volume 7.2 fL (7.4-10.4); Neutrophil 36 % (42-75); Platelet Count 264 thou/uL (130-400); RBC Distribution Width 13.8 % (11.5-14.5); Reactive Lymphocytes 2 % (0-10); Red Blood Cell (RBC) Count 4.39 mill/uL (4.70-6.10)
[2018-10-15] MEDS: Levothyroxine 175 MCG TAB PO SCH (05:35)
[2018-10-15] MEDS: Ondansetron ODT 4 MG TAB PO PRN (05:36)
[2018-10-15] MEDS ORDERED: diphenhydrAMINE 25 MG in Sodium Chloride 0.9% 50 ML IVPB SCH (06:00)
[2018-10-15] MEDS ORDERED: RITUXIMAB IVPB SCH (06:00)
[2018-10-15] MEDS ORDERED: Acetaminophen 500 MG TAB PO SCH (06:00)
[2018-10-15] MEDS ORDERED: SODIUM CHLORIDE 0.9% IVPB SCH (06:00)
--- NOTE | 2018-10-15 09:02 | PRG ---
DATE OF SERVICE: 10/15/2018 SUBJECTIVE: This morning, he is doing better. OBJECTIVE: VITAL SIGNS: His saturations are 95 on 1 L, respirations 20, temperature 97, and blood pressure 146/72. He is being infused rituximab. CHEST: Decreased breath sounds. No wheezing. CARDIAC: Normal S1 and S2. No gallops. ABDOMEN: No masses. ASSESSMENT: 1. Malignant lymphoma. 2. Pleural effusion. 3. Chronic obstructive pulmonary disease. 4. Diabetes. PLAN: Pulmonary-murphy, disposition as per Oncology. We will follow. Job ID: [id number]
[2018-10-15] MEDS: Enoxaparin Sodium 40 MG/0.4 ML SYRINGE SC SCH (09:10)
[2018-10-15] MEDS: Metoprolol Tartrate 50 MG TAB PO SCH ×2 (09:10→20:26)
[2018-10-15] MEDS: Gabapentin 400 MG CAP PO SCH ×2 (09:10→20:26)
[2018-10-15] MEDS: predniSONE 50 MG TAB PO SCH (09:10)
[2018-10-15] MEDS: metFORMIN 500 MG TAB PO SCH ×2 (09:10→17:25)
[2018-10-15] MEDS: Tamsulosin HCl 0.4 MG CAP PO SCH (09:10)
[2018-10-15] MEDS: Aspirin 81 mg Enteric Coated Tablet PO SCH (09:10)
[2018-10-15] MEDS: Lisinopril/Hydrochlorothiazide 20 mg/12.5 mg Tablet PO SCH (09:10)
[2018-10-15] MEDS: Senokot S 8.6-50 MG TAB PO SCH ×2 (09:10→20:25)
[2018-10-15] MEDS: glipiZIDE 5 MG TAB PO SCH (09:10)
[2018-10-15] MEDS: DULoxetine 30 MG CAP PO SCH (09:15)
[2018-10-15] MEDS: predniSONE 20 MG TAB PO SCH (09:17)
[2018-10-15 10:31] VITALS: BMI 23.8
[2018-10-15] MEDS: HumaLOG 300 UNITS/3 ML VIAL SC PRN ×3 (11:49→20:36)
--- NOTE | 2018-10-15 12:53 | PDOC.PN ---
- Subjective Encounter Start Date: 10/15/18 Encounter Start Time: 12:15 Subjective: had his chemo yesterday -: has loss of appetite -: sob is better, is ambulating in room - Objective Resuscitation Status - Order Detail: 10/11/18 12:00 Resuscitation Status Routine Resuscitation Status: FULL: Full Resuscitation MAR Reviewed: Yes Vital Signs & Weight: Vital Signs (12 hours) Temp Pulse Resp BP BP Pulse Ox 10/15/18 11:33 97.7 F 57 L 20 159/74 H 95 10/15/18 09:10 76 10/15/18 08:45 97.3 F L 76 20 127/72 94 L 10/15/18 04:13 97.6 F 64 20 146/72 H 94 L Weight Admit Weight 176 lb 1 oz Weight 185 lb 4.8 oz I&O: 10/14/18 10/15/18 10/16/18 06:59 06:59 06:59 Intake Total 240 2795 712 Output Total 200 1300 Balance 40 1495 712 Result Diagrams: 10/15/18 03:38 10/12/18 05:57 Additional Labs: Accuchecks 10/15/18 10/15/18 10/14/18 11:37 05:29 20:15 POC Glucose 239 H 218 H 193 H 10/14/18 10/14/18 10/14/18 17:07 14:11 13:23 POC Glucose 91 110 60 L 10/14/18 12:48 POC Glucose 43 L* Phys Exam - Physical Examination HEENT: PERRLA, sclera anicteric Neck: no JVD, supple Respiratory: no wheezing, no rales Cardiovascular: RRR, no significant murmur Gastrointestinal: soft, non-tender, positive bowel sounds Musculoskeletal: no edema, pulses present Neurological: non-focal, moves all 4 limbs Psychiatric: normal affect, A&O x 3 Dx/Plan (1) Lymphoma Status: Acute Qualifiers: 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 transplanted heart: [place] heart Associated angina: without angina Qualified Code(s): I25.10 - Atherosclerotic heart disease of [place] coronary artery without angina pectoris Comment: stable (4) COPD (chronic obstructive pulmonary disease) Status: Chronic Qualifiers: COPD type: emphysema Emphysema type: unspecified Qualified Code(s): J43.9 - Emphysema, unspecified Comment: stable - Plan hemostable, sugars are a bit up due to steroids, will f/u -: on lower dose of glipizide and metformin, encourage po intake -: dc iv fluids, ensure 1 can tid -: continue asp, prinizide, lopressor, crestor and synthroid -: dc plan per onc advice * . Review of Systems - Medications/Allergies Allergies/Adverse Reactions: Allergies Allergy/AdvReac Type Severity Reaction Status Date / Time Sulfa (Sulfonamide Allergy "black out" Verified 10/11/18 14:30 Antibiotics) Medications: Current Medications Acetaminophen (Tylenol) 650 mg PO Q4H PRN PRN Reason: Headache/Fever/Mild Pain (1-3) Hydrocodone Bitart/Acetaminophen ([place] 5/325) 1 tab PO Q4H PRN PRN Reason: Pain Albuterol/Ipratropium (Duoneb) 3 ml NEB [id number] [facility] Last Admin: 10/14/18 23:02 Dose: 3 ml Albuterol/Ipratropium (Duoneb) 3 ml NEB [id number] PRN PRN Reason: SOB &/or Wheezing Aspirin (Ecotrin) 81 mg PO DAILY [facility] Last Admin: 10/15/18 09:10 Dose: 81 mg Dextrose/Water (Dextrose 50%) 25 gm SLOW IVP PRN PRN PRN Reason: Hypoglycemia Duloxetine HCl (Cymbalta) 30 mg PO DAILY [facility] Last Admin: 10/15/18 09:15 Dose: 30 mg Enoxaparin Sodium (Lovenox) 40 mg SC 09 [facility] Last Admin: 10/15/18 09:10 Dose: 40 mg Gabapentin (Neurontin) 400 mg PO BID [facility] Last Admin: 10/15/18 09:10 Dose: 400 mg Glipizide (Glucotrol) 5 mg PO DAILY-AC [facility] Last Admin: 10/15/18 09:10 Dose: 5 mg Glucagon (Glucagon) 1 mg IM PRN PRN PRN Reason: Hypoglycemia Lisinopril/HCTZ (Prinizide 20-12.5) 1 tab PO DAILY [facility] Last Admin: 10/15/18 09:10 Dose: 1 tab Sodium Chloride (Normal Saline 0.9%) 1,000 mls @ 75 mls/hr IV .[id number] [facility] Last Admin: 10/14/18 12:59 Dose: 1,000 mls Dextrose/Water (D5w) 1,000 mls @ 0 mls/hr IV .Q0M PRN PRN Reason: Hypoglycemia Insulin Human Lispro (Humalog) 0 units SC .MILD SLIDING SCALE PRN PRN Reason: Mild Correctional Scale Last Admin: 10/15/18 11:49 Dose: 3 unit Levothyroxine Sodium (Synthroid) 175 mcg PO 0600 [facility] Last Admin: 10/15/18 05:35 Dose: 175 mcg Loperamide HCl (Imodium) 2 mg PO DAILY PRN PRN Reason: Diarrhea/Loose Stools Last Admin: 10/13/18 09:45 Dose: 2 mg Metformin [facility] ([facility]ucophage) [facility] Last Admin: 10/15/18 09:10 Dose: 500 mg Metoprolol Tartrate (Lopressor) 50 mg PO BID [facility] Last Admin: 10/15/18 09:10 Dose: 50 mg Ondansetron HCl (Zofran Odt) 4 mg PO Q6H PRN PRN Reason: Nausea/Vomiting Last Admin: 10/15/18 05:36 Dose: 4 mg Ondansetron HCl (Zofran) 4 mg IVP Q6H PRN PRN Reason: Nausea/Vomiting Prednisone (Prednisone) 100 mg PO [facility] Stop: 10/18/18 08:01 Last Admin: 10/15/18 09:10 Dose: 100 mg Rosuvastatin Calcium (Crestor) 40 mg PO [facility] Last Admin: 10/14/18 21:13 Dose: 40 mg Senna/Docusate Sodium (Senokot S) 1 tab PO BID [facility] Last Admin: 10/15/18 09:10 Dose: 1 tab Tamsulosin HCl (Flomax) 0.4 mg PO DAILY [facility] Last Admin: 10/15/18 09:10 Dose: 0.4 mg Trazodone HCl (Desyrel) 50 mg PO HS PRN PRN Reason: Insomnia
[2018-10-15] MEDS: Sodium Chloride 0.9% 1,000 ML IV SCH (18:02)
[2018-10-15] MEDS: Rosuvastatin 20 MG TAB PO SCH (20:26)
[2018-10-15] MEDS: Ondansetron ODT 8 MG TAB PO PRN (20:37)
[2018-10-16] MEDS: Levothyroxine 175 MCG TAB PO SCH (05:51)
[2018-10-16] MEDS: Enoxaparin Sodium 40 MG/0.4 ML SYRINGE SC SCH (08:08)
[2018-10-16] MEDS: Gabapentin 400 MG CAP PO SCH ×2 (08:08→21:02)
[2018-10-16] MEDS: DULoxetine 30 MG CAP PO SCH (08:08)
[2018-10-16] MEDS: Aspirin 81 mg Enteric Coated Tablet PO SCH (08:09)
[2018-10-16] MEDS: Lisinopril/Hydrochlorothiazide 20 mg/12.5 mg Tablet PO SCH (08:09)
[2018-10-16] MEDS: glipiZIDE 5 MG TAB PO SCH (08:09)
[2018-10-16] MEDS: predniSONE 50 MG TAB PO SCH (08:09)
[2018-10-16] MEDS: Senokot S 8.6-50 MG TAB PO SCH ×2 (08:09→21:03)
[2018-10-16] MEDS: Tamsulosin HCl 0.4 MG CAP PO SCH (08:09)
[2018-10-16] MEDS: metFORMIN 500 MG TAB PO SCH ×2 (08:09→17:19)
[2018-10-16] MEDS: Metoprolol Tartrate 50 MG TAB PO SCH ×2 (08:09→21:02)
--- NOTE | 2018-10-16 11:48 | PDOC.PN ---
- Subjective Encounter Start Date: 10/16/18 Encounter Start Time: 11:15 Subjective: sob+, wheezing a bit -: wants the room cold -: has loss of appetite, had small bm this am - Objective Resuscitation Status - Order Detail: 10/11/18 12:00 Resuscitation Status Routine Resuscitation Status: FULL: Full Resuscitation MAR Reviewed: Yes Vital Signs & Weight: Vital Signs (12 hours) Temp Pulse Resp BP BP Pulse Ox 10/16/18 10:45 98.5 F 63 16 153/72 H 93 L 10/16/18 08:09 79 10/16/18 08:08 94 L 10/16/18 08:00 94 L 10/16/18 07:34 97.4 F L 79 18 178/87 H 92 L 10/16/18 06:45 65 20 94 L 10/16/18 04:31 97.7 F 67 18 127/87 94 L 10/16/18 00:42 58 L 12 93 L 10/16/18 00:03 97.7 F 61 18 116/70 93 L Weight Admit Weight 176 lb 1 oz Weight 185 lb 4.8 oz I&O: 10/15/18 10/16/18 10/17/18 06:59 06:59 06:59 Intake Total 2795 1872 240 Output Total 1300 750 Balance 1495 1122 240 Result Diagrams: 10/15/18 03:38 10/12/18 05:57 Additional Labs: Accuchecks 10/16/18 10/16/18 10/15/18 10:46 05:25 20:31 POC Glucose 130 H 132 H 372 H 10/15/18 10/15/18 17:13 11:37 POC Glucose 231 H 239 H Phys Exam - Physical Examination HEENT: PERRLA, moist MMs Neck: no JVD, supple Respiratory: no rales, wheezing present Cardiovascular: RRR, no significant murmur Gastrointestinal: soft, non-tender, positive bowel sounds mild distention+, no rigidity or guarding Musculoskeletal: no edema, pulses present Neurological: non-focal, moves all 4 limbs Psychiatric: normal affect, A&O x 3 Dx/Plan (1) Lymphoma Status: Acute Qualifiers: 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 transplanted heart: [place] heart Associated angina: without angina Qualified Code(s): I25.10 - Atherosclerotic heart disease of [place] coronary artery without angina pectoris Comment: stable (4) COPD (chronic obstructive pulmonary disease) Status: Chronic Qualifiers: COPD type: emphysema Emphysema type: unspecified Qualified Code(s): J43.9 - Emphysema, unspecified Comment: stable - Plan cxr/kub today -: continue nebs, asp, glipizide, metformin, lopressor, prinizide -: hemostable -: will need rehab -: mobilize as tolerated, bowel regimen * . Review of Systems - Medications/Allergies Allergies/Adverse Reactions: Allergies Allergy/AdvReac Type Severity Reaction Status Date / Time Sulfa (Sulfonamide Allergy "black out" Verified 10/11/18 14:30 Antibiotics) Medications: Current Medications Acetaminophen (Tylenol) 650 mg PO Q4H PRN PRN Reason: Headache/Fever/Mild Pain (1-3) Hydrocodone Bitart/Acetaminophen ([place] 5/325) 1 tab PO Q4H PRN PRN Reason: Pain Albuterol/Ipratropium (Duoneb) 3 ml NEB [id number] [facility] Last Admin: 10/16/18 06:45 Dose: 3 ml Albuterol/Ipratropium (Duoneb) 3 ml NEB [id number] PRN PRN Reason: SOB &/or Wheezing Aspirin (Ecotrin) 81 mg PO DAILY [facility] Last Admin: 10/16/18 08:09 Dose: 81 mg Dextrose/Water (Dextrose 50%) 25 gm SLOW IVP PRN PRN PRN Reason: Hypoglycemia Duloxetine HCl (Cymbalta) 30 mg PO DAILY [facility] Last Admin: 10/16/18 08:08 Dose: 30 mg Enoxaparin Sodium (Lovenox) 40 mg SC 0900 [facility] Last Admin: 10/16/18 08:08 Dose: 40 mg Gabapentin (Neurontin) 400 mg PO BID [facility] Last Admin: 10/16/18 08:08 Dose: 400 mg Glipizide (Glucotrol) 5 mg PO DAILY-[facility] Last Admin: 10/16/18 08:09 Dose: 5 mg Glucagon (Glucagon) 1 mg IM PRN PRN PRN Reason: Hypoglycemia Lisinopril/HCTZ (Prinizide 20-12.5) 1 tab PO DAILY [facility] Last Admin: 10/16/18 08:09 Dose: 1 tab Dextrose/Water (D5w) 1,000 mls @ 0 mls/hr IV .Q0M PRN PRN Reason: Hypoglycemia Insulin Human Lispro (Humalog) 0 units SC .MILD SLIDING SCALE PRN PRN Reason: Mild Correctional Scale Last Admin: 10/15/18 20:36 Dose: 4 unit Levothyroxine Sodium (Synthroid) 175 mcg PO 0600 [facility] Last Admin: 10/16/18 05:51 Dose: 175 mcg Loperamide HCl (Imodium) 2 mg PO DAILY PRN PRN Reason: Diarrhea/Loose Stools Last Admin: 10/13/18 09:45 Dose: 2 mg [facility] ([facility]) [facility] Last Admin: 10/16/18 08:09 Dose: 500 mg Metoprolol Tartrate (Lopressor) 50 mg PO BID [facility] Last Admin: 10/16/18 08:09 Dose: 50 mg Ondansetron HCl (Zofran Odt) 4 mg PO Q6H PRN PRN Reason: Nausea/Vomiting Last Admin: 10/15/18 05:36 Dose: 4 mg Ondansetron HCl (Zofran) 4 mg IVP Q6H PRN PRN Reason: Nausea/Vomiting Ondansetron HCl (Zofran Odt) 8 mg PO BID PRN PRN Reason: Nausea/Vomiting Last Admin: 10/15/18 20:37 Dose: 8 mg Pantoprazole Sodium (Protonix) 40 mg PO DAILY [facility] Last Admin: 10/16/18 08:09 Dose: 40 mg Prednisone (Prednisone) 100 mg PO QA-[facility] Stop: 10/18/18 08:01 Last Admin: 10/16/18 08:09 Dose: 100 mg Rosuvastatin Calcium (Crestor) 40 mg PO [facility] Last Admin: 10/15/18 20:26 Dose: 40 mg Senna/Docusate Sodium (Senokot S) 1 tab PO BID [facility] Last Admin: 10/16/18 08:09 Dose: 1 tab Tamsulosin HCl (Flomax) 0.4 mg PO DAILY [facility] Last Admin: 10/16/18 08:09 Dose: 0.4 mg Trazodone HCl (Desyrel) 50 mg PO HS PRN PRN Reason: Insomnia
--- NOTE | 2018-10-16 13:37 | RAD ---
EXAM: Single view of the chest HISTORY: Pleural effusion COMPARISON: 09/14/2018 FINDINGS: Single view of the chest shows a normal sized cardiomediastinal silhouette. The patient is status post sternotomy. There is a moderate left pleural effusion and a small right pleural effusion. These appear to have enlarged compared to the prior radiograph. There is no evidence of con solidation or mass. The bones are unremarkable. IMPRESSION: Bilateral pleural effusions
--- NOTE | 2018-10-16 13:38 | RAD ---
EXAM: Single view of the abdomen HISTORY: Abdominal distention COMPARISON: None FINDINGS: Single view of the abdomen shows a nonspecific, nonobstructive bowel gas pattern. No suspi cious calcifications are seen. Degenerative changes are seen in the spine. IMPRESSION: Unremarkable exam
[2018-10-16] MEDS: HumaLOG 300 UNITS/3 ML VIAL SC PRN (16:10)
--- NOTE | 2018-10-16 16:46 | PRG ---
DATE OF SERVICE: 10/16/2018 SERVICE: Pulmonary Medicine. INTERVAL HISTORY: The patient is doing really well from respiratory standpoint. Breathing comfortably. He started chemotherapy two days ago. With this, he is a little bit of a lack of appetite and some nausea but no vomiting. Otherwise, there has been no interval change to his condition. He denies any current overnight events, fevers, or chills. He feels like his shortness of breath is actually improved fairly dramatically. OBJECTIVE: VITAL SIGNS: Afebrile, pulse 67, blood pressure 151/73, respirations 12, saturation 94% on 2 L nasal cannula. GENERAL: The patient is awake and alert, in no apparent distress. LUNGS: Decent air entry on the right. There is decreased air entry at the left base. No prolonged expiratory phase or wheezing is appreciated. There are mild crackles present. HEART: Normal rate. Regular. ABDOMEN: Soft, nontender, and nondistended. Bowel sounds are positive. MUSCULOSKELETAL: No cyanosis or clubbing. There is no pitting in the bilateral lower extremities. NEUROLOGIC: Grossly nonfocal. LABORATORY DATA: Blood sugar ranges from 132 to 372. Uric acid previously 6.0. IMAGIN. Chest x-ray demonstrates enlarging left-sided pleural effusion. There is a stable right-sided pleural effusion. 2. Echocardiogram demonstrates normal ejection fraction with diastolic dysfunction. 3. Abdominal x-ray demonstrates unremarkable exam. ASSESSMENT: 1. Small lymphocytic lymphoma. 2. Right-sided malignant pleural effusion. 3. Left-sided chylothorax. 4. Chronic obstructive pulmonary disease with acute exacerbation, improving. DISCUSSION AND PLAN: The patient is stable from a respiratory standpoint. At this point, there is no role for thoracentesis. If he would become symptomatic, left-sided thoracentesis would be considered. For the time being, however, we will continue with treatment for the underlying process. Pulmonary Critical Care will continue to follow along. Job ID: [id number]
[2018-10-16] MEDS: Rosuvastatin 20 MG TAB PO SCH (21:02)
[2018-10-16] MEDS: Docusate 100 MG CAP PO SCH (21:03)
[2018-10-16] MEDS: Ondansetron ODT 8 MG TAB PO PRN (21:08)
[2018-10-17] MEDS: Levothyroxine 175 MCG TAB PO SCH (05:51)
[2018-10-17] MEDS: predniSONE 50 MG TAB PO SCH (08:55)
[2018-10-17] MEDS: Enoxaparin Sodium 40 MG/0.4 ML SYRINGE SC SCH (08:55)
[2018-10-17] MEDS: Metoprolol Tartrate 50 MG TAB PO SCH ×3 (08:55→21:24)
[2018-10-17] MEDS: Gabapentin 400 MG CAP PO SCH ×2 (08:56→21:23)
[2018-10-17] MEDS: DULoxetine 30 MG CAP PO SCH (08:56)
[2018-10-17] MEDS: Docusate 100 MG CAP PO SCH ×2 (08:56→21:22)
[2018-10-17] MEDS: Tamsulosin HCl 0.4 MG CAP PO SCH (08:56)
[2018-10-17] MEDS: Aspirin 81 mg Enteric Coated Tablet PO SCH (08:56)
[2018-10-17] MEDS: Lisinopril/Hydrochlorothiazide 20 mg/12.5 mg Tablet PO SCH (08:56)
[2018-10-17] MEDS: metFORMIN 500 MG TAB PO SCH ×2 (08:56→16:09)
[2018-10-17] MEDS: glipiZIDE 5 MG TAB PO SCH (08:56)
[2018-10-17] MEDS: Senokot S 8.6-50 MG TAB PO SCH ×2 (08:56→21:23)
[2018-10-17] MEDS: Ondansetron ODT 8 MG TAB PO PRN ×2 (09:08→21:23)
--- NOTE | 2018-10-17 10:38 | PDOC.PN ---
- Subjective Encounter Start Date: 10/17/18 Encounter Start Time: 10:00 Subjective: no sob, has loss of appetite and fullness when he tries to eat more -: is ambulating in room - Objective Resuscitation Status - Order Detail: 10/11/18 12:00 Resuscitation Status Routine Resuscitation Status: FULL: Full Resuscitation MAR Reviewed: Yes Vital Signs & Weight: Vital Signs (12 hours) Temp Pulse Resp BP BP BP Pulse Ox 10/17/18 08:56 74 143/68 H 10/17/18 08:05 97.4 F L 74 18 143/68 H 2 L 10/17/18 07:36 94 L 10/17/18 07:10 63 16 94 L 10/17/18 03:52 97.6 F 62 16 143/74 H 95 10/17/18 00:39 62 12 96 10/16/18 23:25 98.4 F 74 12 120/75 96 Weight Admit Weight 176 lb 1 oz Weight 185 lb 4.8 oz I&O: 10/16/18 10/17/18 10/18/18 06:59 06:59 06:59 Intake Total 1872 840 Output Total 750 450 Balance 1122 390 Result Diagrams: 10/15/18 03:38 10/12/18 05:57 Additional Labs: Accuchecks 10/17/18 10/16/18 10/16/18 05:51 21:02 16:01 POC Glucose 124 H 255 H 236 H 10/16/18 10:46 POC Glucose 130 H Phys Exam - Physical Examination HEENT: PERRLA, moist MMs Neck: no JVD, supple Respiratory: no wheezing, no rales Cardiovascular: RRR, no significant murmur Gastrointestinal: soft, non-tender, positive bowel sounds Musculoskeletal: no edema, pulses present Neurological: non-focal, moves all 4 limbs Psychiatric: normal affect, A&O x 3 Dx/Plan (1) Lymphoma Status: Acute Qualifiers: 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 transplanted heart: [place] heart Associated angina: without angina Qualified Code(s): I25.10 - Atherosclerotic heart disease of [place] coronary artery without angina pectoris Comment: stable (4) COPD (chronic obstructive pulmonary disease) Status: Chronic Qualifiers: COPD type: emphysema Emphysema type: unspecified Qualified Code(s): J43.9 - Emphysema, unspecified Comment: stable (5) Physical deconditioning Code(s): R53.81 - OTHER MALAISE Status: Acute - Plan hemostable -: glucerna 1 can tid -: rehab/swing bed eval -: dc planning -: continue asp, glipizide, metformin, prinizide, lopressor, synthroid * . Review of Systems - Medications/Allergies Allergies/Adverse Reactions: Allergies Allergy/AdvReac Type Severity Reaction Status Date / Time Sulfa (Sulfonamide Allergy "black out" Verified 10/11/18 14:30 Antibiotics) Medications: Current Medications Acetaminophen (Tylenol) 650 mg PO Q4H PRN PRN Reason: Headache/Fever/Mild Pain (1-3) Hydrocodone Bitart/Acetaminophen ([place] 5/325) 1 tab PO Q4H PRN PRN Reason: Pain Last Admin: 10/17/18 09:01 Dose: 1 tab Albuterol/Ipratropium (Duoneb) 3 ml NEB [id number] [facility] Last Admin: 10/17/18 07:10 Dose: 3 ml Albuterol/Ipratropium (Duoneb) 3 ml NEB [id number] PRN PRN Reason: SOB &/or Wheezing Aspirin (Ecotrin) 81 mg PO DAILY [facility] Last Admin: 10/17/18 08:56 Dose: 81 mg Dextrose/Water (Dextrose 50%) 25 gm SLOW IVP PRN PRN PRN Reason: Hypoglycemia Docusate Sodium (Colace) 100 mg PO BID [facility] Last Admin: 10/17/18 08:56 Dose: 100 mg Duloxetine HCl (Cymbalta) 30 mg PO DAILY [facility] Last Admin: 10/17/18 08:56 Dose: 30 mg Enoxaparin Sodium (Lovenox) 40 mg SC 0900 [facility] Last Admin: 10/17/18 08:55 Dose: 40 mg Gabapentin (Neurontin) 400 mg PO BID [facility] Last Admin: 10/17/18 08:56 Dose: 400 mg Glipizide (Glucotrol) 5 mg PO DAILY-[facility] Last Admin: 10/17/18 08:56 Dose: 5 mg Glucagon (Glucagon) 1 mg IM PRN PRN PRN Reason: Hypoglycemia Lisinopril/HCTZ (Prinizide 20-12.5) 1 tab PO DAILY [facility] Last Admin: 10/17/18 08:56 Dose: 1 tab Dextrose/Water (D5w) 1,000 mls @ 0 mls/hr IV .Q0M PRN PRN Reason: Hypoglycemia Insulin Human Lispro (Humalog) 0 units SC .MILD SLIDING SCALE PRN PRN Reason: Mild Correctional Scale Last Admin: 10/16/18 16:10 Dose: 3 unit Levothyroxine Sodium (Synthroid) 175 mcg PO 0600 [facility] Last Admin: 10/17/18 05:51 Dose: 175 mcg Loperamide HCl (Imodium) 2 mg PO DAILY PRN PRN Reason: Diarrhea/Loose Stools Last Admin: 10/13/18 09:45 Dose: 2 mg [facility] Last Admin: 10/17/18 08:56 Dose: 500 mg Metoprolol Tartrate (Lopressor) 50 mg PO BID [facility] Last Admin: 10/17/18 08:55 Dose: 50 mg Ondansetron HCl (Zofran Odt) 4 mg PO Q6H PRN PRN Reason: Nausea/Vomiting Last Admin: 10/15/18 05:36 Dose: 4 mg Ondansetron HCl (Zofran) 4 mg IVP Q6H PRN PRN Reason: Nausea/Vomiting Ondansetron HCl (Zofran Odt) 8 mg PO BID PRN PRN Reason: Nausea/Vomiting Last Admin: 10/17/18 09:08 Dose: 8 mg Pantoprazole Sodium (Protonix) 40 mg PO DAILY [facility] Last Admin: 10/17/18 08:56 Dose: 40 mg Prednisone (Prednisone) 100 mg PO QA-[facility] Stop: 10/18/18 08:01 Last Admin: 10/17/18 08:55 Dose: 100 mg Rosuvastatin Calcium (Crestor) 40 mg PO [facility] Last Admin: 10/16/18 21:02 Dose: 40 mg Senna/Docusate Sodium (Senokot S) 1 tab PO BID [facility] Last Admin: 10/17/18 08:56 Dose: 1 tab Tamsulosin HCl (Flomax) 0.4 mg PO DAILY [facility] Last Admin: 10/17/18 08:56 Dose: 0.4 mg Trazodone HCl (Desyrel) 50 mg PO HS PRN PRN Reason: Insomnia
--- NOTE | 2018-10-17 15:52 | PRG ---
DATE OF SERVICE: 10/17/2018 SERVICE: Pulmonary Medicine. INTERVAL HISTORY: The patient is doing really well from respiratory standpoint. Breathing comfortably. No complaints of chest pain, fevers, or chills. He continues to have some nausea. He is not tolerating p.o. The Zofran on the tongue helps with that. PHYSICAL EXAMINATION: VITAL SIGNS: Afebrile. Pulse 63, blood pressure 139/82, respirations 18, saturation 94% on 2 L nasal cannula. GENERAL: The patient is awake and alert, in no apparent distress. LUNGS: Decent air entry. No prolonged expiratory phase or wheezing is appreciated. HEART: Normal rate and regular. ABDOMEN: Soft, nontender, and nondistended. Bowel sounds are positive. MUSCULOSKELETAL: No cyanosis or clubbing. No pitting in the bilateral lower extremities. NEUROLOGIC: Grossly nonfocal. LABORATORY DATA: Blood sugar ranges from 114 to 236. ASSESSMENT: 1. Small lymphocytic lymphoma, status post chemotherapy. 2. Right-sided malignant effusion. 3. Left-sided chylothorax. 4. Chronic obstructive pulmonary disease with acute exacerbation, improving. DISCUSSION AND PLAN: The patient is doing fine from respiratory standpoint. He is status post steroids, antibiotics directed at lung problems. If he becomes symptomatic, repeat thoracentesis could be considered. Pulmonary will continue to follow while he remains inhouse. Dr. Plaza will resume care in the morning. Job ID: [id number]
[2018-10-17] MEDS: HumaLOG 300 UNITS/3 ML VIAL SC PRN (16:10)
[2018-10-17] MEDS: Rosuvastatin 20 MG TAB PO SCH (21:22)
[2018-10-18] MEDS: Levothyroxine 175 MCG TAB PO SCH (05:55)
[2018-10-18] MEDS: Enoxaparin Sodium 40 MG/0.4 ML SYRINGE SC SCH (08:50)
[2018-10-18] MEDS: Tamsulosin HCl 0.4 MG CAP PO SCH (08:51)
[2018-10-18] MEDS: metFORMIN 500 MG TAB PO SCH ×2 (08:51→16:24)
[2018-10-18] MEDS: glipiZIDE 5 MG TAB PO SCH (08:51)
[2018-10-18] MEDS: DULoxetine 30 MG CAP PO SCH (08:51)
[2018-10-18] MEDS: Senokot S 8.6-50 MG TAB PO SCH ×2 (08:51→20:43)
[2018-10-18] MEDS: Gabapentin 400 MG CAP PO SCH ×2 (08:51→20:42)
[2018-10-18] MEDS: Metoprolol Tartrate 50 MG TAB PO SCH ×2 (08:51→20:41)
[2018-10-18] MEDS: Lisinopril/Hydrochlorothiazide 20 mg/12.5 mg Tablet PO SCH (08:51)
[2018-10-18] MEDS: Docusate 100 MG CAP PO SCH ×2 (08:51→20:43)
[2018-10-18] MEDS: Aspirin 81 mg Enteric Coated Tablet PO SCH (08:51)
[2018-10-18] MEDS: predniSONE 50 MG TAB PO SCH (08:52)
[2018-10-18] MEDS: Ondansetron ODT 4 MG TAB PO PRN (08:57)
[2018-10-18] MEDS ORDERED: Polyethylene Glycol 3350 17 GM Packet PO PRN (10:24)
--- NOTE | 2018-10-18 11:01 | PDOC.PN ---
- Subjective Encounter Start Date: 10/18/18 Encounter Start Time: 10:30 Subjective: no sob, no new complaints -: has fullness and unable to eat much -: is able to drink 3 cans of glucerna - Objective Resuscitation Status - Order Detail: 10/11/18 12:00 Resuscitation Status Routine Resuscitation Status: FULL: Full Resuscitation MAR Reviewed: Yes Vital Signs & Weight: Vital Signs (12 hours) Pulse Resp Pulse Ox 10/18/18 08:51 80 10/18/18 08:00 96 10/18/18 07:32 96 10/18/18 07:20 80 20 96 10/17/18 23:10 79 20 93 L Weight Admit Weight 176 lb 1 oz Weight 185 lb 4.8 oz I&O: 10/17/18 10/18/18 10/19/18 06:59 06:59 06:59 Intake Total 840 800 240 Output Total 450 425 Balance 390 375 240 Result Diagrams: 10/15/18 03:38 10/12/18 05:57 Additional Labs: Accuchecks 10/18/18 10/17/18 10/17/18 05:43 20:32 15:41 POC Glucose 146 H 203 H 188 H 10/17/18 11:02 POC Glucose 114 H Phys Exam - Physical Examination HEENT: PERRLA, moist MMs Neck: no JVD, supple Respiratory: no wheezing, no rales Cardiovascular: RRR, no significant murmur Gastrointestinal: soft, non-tender, positive bowel sounds Musculoskeletal: no edema, pulses present Neurological: non-focal, moves all 4 limbs Psychiatric: normal affect, A&O x 3 Dx/Plan (1) Lymphoma Status: Acute Qualifiers: 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 transplanted heart: [place] heart Associated angina: without angina Qualified Code(s): I25.10 - Atherosclerotic heart disease of [place] coronary artery without angina pectoris Comment: stable (4) COPD (chronic obstructive pulmonary disease) Status: Chronic Qualifiers: COPD type: emphysema Emphysema type: unspecified Qualified Code(s): J43.9 - Emphysema, unspecified Comment: stable (5) Physical deconditioning Code(s): R53.81 - OTHER [place] Status: Acute - Plan awaiting rehab/swing bed placement -: recieved chemo 1 round for lymphoma -: is deconditioned, pleural effusions are stable -: ambulating in room on nasal oxygen -: continue aspirin, metformin, lopressor, lisinopril, crestor, synthroid * . Review of Systems - Medications/Allergies Allergies/Adverse Reactions: Allergies Allergy/AdvReac Type Severity Reaction Status Date / Time Sulfa (Sulfonamide Allergy "black out" Verified 10/11/18 14:30 Antibiotics) Medications: Current Medications Acetaminophen (Tylenol) 650 mg PO Q4H PRN PRN Reason: Headache/Fever/Mild Pain (1-3) Hydrocodone Bitart/Acetaminophen ([place] 5/325) 1 tab PO Q4H PRN PRN Reason: Pain Last Admin: 10/17/18 09:01 Dose: 1 tab Albuterol/Ipratropium (Duoneb) 3 ml NEB [id number] [facility] Last Admin: 10/18/18 07:20 Dose: 3 ml Albuterol/Ipratropium (Duoneb) 3 ml NEB [id number] PRN PRN Reason: SOB &/or Wheezing Aspirin (Ecotrin) 81 mg PO DAILY [facility] Last Admin: 10/18/18 08:51 Dose: 81 mg Dextrose/Water (Dextrose 50%) 25 gm SLOW IVP PRN PRN PRN Reason: Hypoglycemia Docusate Sodium (Colace) 100 mg PO BID [facility] Last Admin: 10/18/18 08:51 Dose: 100 mg Duloxetine HCl (Cymbalta) 30 mg PO DAILY [facility] Last Admin: 10/18/18 08:51 Dose: Not Given Enoxaparin Sodium (Lovenox) 40 mg SC 0900 [facility] Last Admin: 10/18/18 08:50 Dose: 40 mg Gabapentin (Neurontin) 400 mg PO BID [facility] Last Admin: 10/18/18 08:51 Dose: Not Given Glipizide (Glucotrol) 5 mg PO DAILY-[facility] Last Admin: 10/18/18 08:51 Dose: 5 mg Glucagon (Glucagon) 1 mg IM PRN PRN PRN Reason: Hypoglycemia Lisinopril/HCTZ (Prinizide 20-12.5) 1 tab PO DAILY [facility] Last Admin: 10/18/18 08:51 Dose: 1 tab Dextrose/Water (D5w) 1,000 mls @ 0 mls/hr IV .Q0M PRN PRN Reason: Hypoglycemia Insulin Human Lispro (Humalog) 0 units SC .MILD SLIDING SCALE PRN PRN Reason: Mild Correctional Scale Last Admin: 10/17/18 16:10 Dose: 2 unit Levothyroxine Sodium (Synthroid) 175 mcg PO 0600 [facility] Last Admin: 10/18/18 05:55 Dose: 175 mcg Loperamide HCl (Imodium) 2 mg PO DAILY PRN PRN Reason: Diarrhea/Loose Stools Last Admin: 10/13/18 09:45 Dose: 2 mg Metformin HCl (Glucophage) 500 mg PO BID-[facility] Last Admin: 10/18/18 08:51 Dose: 500 mg Metoprolol Tartrate (Lopressor) 50 mg PO BID [facility] Last Admin: 10/18/18 08:51 Dose: 50 mg Ondansetron HCl (Zofran Odt) 4 mg PO Q6H PRN PRN Reason: Nausea/Vomiting Last Admin: 10/18/18 08:57 Dose: 4 mg Ondansetron HCl (Zofran) 4 mg IVP Q6H PRN PRN Reason: Nausea/Vomiting Ondansetron HCl (Zofran Odt) 8 mg PO BID PRN PRN Reason: Nausea/Vomiting Last Admin: 10/17/18 21:23 Dose: 8 mg Pantoprazole Sodium (Protonix) 40 mg PO DAILY [facility] Last Admin: 10/18/18 08:52 Dose: 40 mg Polyethylene Glycol (Miralax) 17 gm PO BIDPRN PRN PRN Reason: CONSTIPATIOM Rosuvastatin Calcium (Crestor) 40 mg PO HS [facility] Last Admin: 10/17/18 21:22 Dose: 40 mg Senna/Docusate Sodium (Senokot S) 1 tab PO BID [facility] Last Admin: 10/18/18 08:51 Dose: 1 tab Tamsulosin HCl (Flomax) 0.4 mg PO DAILY [facility] Last Admin: 10/18/18 08:51 Dose: 0.4 mg Trazodone HCl (Desyrel) 50 mg PO HS PRN PRN Reason: Insomnia
--- NOTE | 2018-10-18 12:56 | PRG ---
DATE OF SERVICE: 10/18/2018 SUBJECTIVE: He is awake, alert, and responsive. No shortness of breath, but he is unable to eat any food. He feels full. He is not nauseated. OBJECTIVE: VITAL SIGNS: Saturations are 96 on 2 L, respirations are 20, pulse 80, blood pressure 130/80. CHEST: Decreased breath sounds. No wheezing. CARDIAC: Normal S1 and S2. No gallops. ABDOMEN: Soft. IMPRESSION: Lymphoma, bilateral pleural effusion, chylous. He is on chemotherapies, nutritional supplement. Disposition as per Oncology. Job ID: [id number]
[2018-10-18] MEDS: HumaLOG 300 UNITS/3 ML VIAL SC PRN (16:24)
[2018-10-18] MEDS: Rosuvastatin 20 MG TAB PO SCH (20:41)
[2018-10-19 04:19] LABS: ALT (SGPT) 24 U/L (8-55); AST (SGOT) 13 U/L (5-34); Albumin 3.9 g/dL (3.4-4.8); Alkaline Phosphatase 86 U/L (40-150); Anion Gap 9 mmol/L (10-20); BUN (Urea Nitrogen) 27 mg/dL (8.4-25.7); Bilirubin, Total 0.8 mg/dL (0.2-1.2); Calc. Creatinine Clearance 100 mL/min (70-130); Carbon Dioxide 37 mmol/L (23-31); Chloride 97 mmol/L (98-107); Estimated GFR-MDRD Greater than 90; Glucose 124 mg/dL (83-110); Potassium 4.2 mmol/L (3.5-5.1); Protein, Total 5.9 g/dL (5.8-8.1); Sodium 139 mmol/L (136-145)
[2018-10-19 04:48] LABS: Hemoglobin 14.6 g/dL (14.0-18.0); Lymphocytes 53 % (21-51); MDiff Complete? YES; Mean Corpuscular HGB CONC 33.3 g/dL (32.0-36.0); Mean Corpuscular Hemoglobin 30.4 pg (27.0-31.0); Mean Corpuscular Volume 91.1 fL (78.0-98.0); Mean Platelet Volume 7.2 fL (7.4-10.4); Monocytes 1 % (0-10); Neutrophil 43 % (42-75); Platelet Count 292 thou/uL (130-400); RBC Distribution Width 13.9 % (11.5-14.5); Reactive Lymphocytes 3 % (0-10); Red Blood Cell (RBC) Count 4.82 mill/uL (4.70-6.10); White Blood Cell (WBC) Count 11.3 thou/uL (4.8-10.8)
[2018-10-19] MEDS: Dicyclomine 10 MG CAP PO PRN (05:54)
[2018-10-19] MEDS: Levothyroxine 175 MCG TAB PO SCH (05:54)
[2018-10-19] MEDS: Enoxaparin Sodium 40 MG/0.4 ML SYRINGE SC SCH (08:18)
[2018-10-19] MEDS: Gabapentin 400 MG CAP PO SCH ×2 (08:18→20:49)
[2018-10-19] MEDS: Docusate 100 MG CAP PO SCH ×2 (08:18→20:50)
[2018-10-19] MEDS: DULoxetine 30 MG CAP PO SCH (08:19)
[2018-10-19] MEDS: Senokot S 8.6-50 MG TAB PO SCH ×2 (08:19→20:50)
[2018-10-19] MEDS: metFORMIN 500 MG TAB PO SCH ×2 (08:19→17:34)
[2018-10-19] MEDS: Tamsulosin HCl 0.4 MG CAP PO SCH (08:19)
[2018-10-19] MEDS: Aspirin 81 mg Enteric Coated Tablet PO SCH (08:19)
[2018-10-19] MEDS: Metoprolol Tartrate 50 MG TAB PO SCH ×2 (08:21→20:49)
[2018-10-19] MEDS: Lisinopril/Hydrochlorothiazide 20 mg/12.5 mg Tablet PO SCH (08:21)
--- NOTE | 2018-10-19 09:18 | PRG ---
DATE OF SERVICE: 10/19/2018 SUBJECTIVE: This morning, he is better. He is less nauseated. OBJECTIVE: VITAL SIGNS: Temperature 97, pulse 94, blood pressure 130/89, respiratory rate 16, saturations are 90% on room air. CHEST: Decreased breath sounds. No wheezing. CARDIAC: Normal S1, S2. No gallops. ABDOMEN: No masses. LABORATORY DATA: Unremarkable. Lytes are normal. IMPRESSION: 1. Malignant lymphoma, status post chemo. 2. Pleural effusion. PLAN: Pulmonary murphy, disposition as per Oncology. Will see in the office as needed for his pleural effusion. Job ID: [id number]
--- NOTE | 2018-10-19 10:20 | PRG ---
DATE OF SERVICE: 10/19/2018 SUBJECTIVE: The patient says he is feeling okay. He was able to "force down a bowl of cereal this morning." The patient has been drinking some supplements, but feels like he has a little bit of dysphagia and some nausea, which he believes is associated with the chemotherapy. He is still profoundly weak and still has a little dyspnea on exertion. OBJECTIVE: VITAL SIGNS: Temperature 97.4, pulse 94, respirations 16, O2 saturation 92% to 95% on room air, and blood pressure 133/89. GENERAL APPEARANCE: Age-appropriate male, in no distress. He is awake, alert, oriented, pleasant, cooperative. HEART: Regular rate and rhythm without murmurs, gallops, or rubs. LUNGS: Diminished, but no wheezes or rales noted. ABDOMEN: Soft, nontender, and nondistended. Positive bowel sounds. No masses. No organomegaly. EXTREMITIES: Have no cyanosis, clubbing, or edema. NEUROLOGICAL: Fully intact. Moves all extremities spontaneously. Cognitively intact. PSYCH: Has normal affect and behavior. LABORATORY DATA: White count 11.3, hemoglobin 14.6. Sodium 139, potassium 4.2, chloride 97, CO2 is 37, BUN 27, creatinine 0.77, and glucose 156. IMPRESSION AND PLAN: 1. 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 The patient was waiting on a biologic agent approvement, but was having recurrent pleural effusion, which was chylous and indicated occlusion of the azygos. Therefore, the patient has received conventional chemotherapy. He is now status post chemotherapy and feeling generally well other than some mild nausea. 2. Severe deconditioning. The patient is amenable to considering rehab referrals being initiated. 3. Chronic obstructive pulmonary disease. Continue with usual medications including bronchodilators as needed. 4. History of coronary artery disease, stable. Continue beta-blockers. 5. Diabetes mellitus. Continue with the metformin. 6. Hypothyroidism. Continue with the Synthroid. 7. Hyperlipidemia. Continue with the Crestor. 8. History of benign prostatic hyperplasia. Continue tamsulosin. 9. Hypertension. Continue with the lisinopril/hydrochlorothiazide. 10. Peripheral neuropathy. Continue Neurontin. Job ID: [id number]
[2018-10-19] MEDS: Rosuvastatin 20 MG TAB PO SCH (20:49)
[2018-10-20] MEDS: Levothyroxine 175 MCG TAB PO SCH (06:13)
[2018-10-20] MEDS: Docusate 100 MG CAP PO SCH ×2 (08:18→21:32)
[2018-10-20] MEDS: Enoxaparin Sodium 40 MG/0.4 ML SYRINGE SC SCH (08:18)
[2018-10-20] MEDS: Tamsulosin HCl 0.4 MG CAP PO SCH (08:19)
[2018-10-20] MEDS: Metoprolol Tartrate 50 MG TAB PO SCH ×2 (08:19→21:32)
[2018-10-20] MEDS: Senokot S 8.6-50 MG TAB PO SCH ×2 (08:20→21:32)
[2018-10-20] MEDS: Dicyclomine 10 MG CAP PO PRN (08:20)
[2018-10-20] MEDS: DULoxetine 30 MG CAP PO SCH (08:20)
[2018-10-20] MEDS: Lisinopril/Hydrochlorothiazide 20 mg/12.5 mg Tablet PO SCH (08:21)
[2018-10-20] MEDS: Aspirin 81 mg Enteric Coated Tablet PO SCH (08:21)
[2018-10-20] MEDS: metFORMIN 500 MG TAB PO SCH ×2 (08:21→17:05)
[2018-10-20] MEDS: Gabapentin 400 MG CAP PO SCH ×2 (08:22→21:32)
--- NOTE | 2018-10-20 09:54 | PRG ---
DATE OF SERVICE: 10/20/2018 SUBJECTIVE: This morning, he is better, less short of breath. He is going to go to the rehab. OBJECTIVE: VITAL SIGNS: Sats are 96% on room air, temperature 97, pulse 91, blood pressure 130/68. CHEST: Decreased breath sounds. No wheezing. CARDIAC: Normal S1, S2. No gallops. ABDOMEN: Soft. IMPRESSION: Pleural effusion, chylothorax, lymphoma, deconditioning. PLAN: Disposition per Oncology. Pulmonary follow as needed. Job ID: [id number]
--- NOTE | 2018-10-20 14:49 | PDOC.PN ---
- Subjective Encounter Start Date: 10/20/18 Encounter Start Time: 09:00 Feels ok. Still poor appetite and taste distorted from chemo. Did force himself to eat some this morning. - Objective Resuscitation Status - Order Detail: 10/11/18 12:00 Resuscitation Status Routine Resuscitation Status: FULL: Full Resuscitation Vital Signs & Weight: Vital Signs (12 hours) Temp Pulse Resp BP BP Pulse Ox 10/20/18 12:51 76 18 93 L 10/20/18 08:30 97.7 F 91 16 130/68 96 10/20/18 08:21 103 H 130/68 10/20/18 08:00 96 10/20/18 07:20 93 L 10/20/18 07:18 92 16 93 L Weight Admit Weight 176 lb 1 oz Weight 185 lb 4.8 oz I&O: 10/19/18 10/20/18 10/21/18 06:59 06:59 06:59 Intake Total 720 900 Output Total 625 Balance 95 900 Result Diagrams: 10/19/18 03:40 10/19/18 03:40 Additional Labs: Accuchecks 10/20/18 10/20/18 10/19/18 11:57 05:19 20:17 POC Glucose 129 H 120 H 156 H 10/19/18 16:17 POC Glucose 168 H Phys Exam - Physical Examination Constitutional: NAD Respiratory: no wheezing, no rales, no rhonchi, clear to auscultation bilateral Cardiovascular: RRR, no significant murmur, no rub Gastrointestinal: soft, non-tender, no distention, positive bowel sounds Musculoskeletal: no edema, pulses present Neurological: non-focal, normal sensation, moves all 4 limbs Psychiatric: normal affect, A&O x 3 Skin: no rash, normal turgor, cap refill <2 seconds Dx/Plan (1) Anorexia Code(s): R63.0 - ANOREXIA Status: Acute (2) Lymphoma Status: Acute Qualifiers: 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 transplanted heart: [place] heart Associated angina: without angina Qualified Code(s): I25.10 - Atherosclerotic heart disease of [place] coronary artery without angina pectoris Comment: stable (6) COPD (chronic obstructive pulmonary disease) Status: Chronic Qualifiers: COPD type: emphysema Emphysema type: unspecified Qualified Code(s): J43.9 - Emphysema, unspecified Comment: stable - Plan * Had recurrent pleural effusion. 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 * Was awaiting immune therapy. * Had to receive traditional chemo to shrink the tumors. * Doing fairly well post chemo. * Awaiting transfer to rehab. No bed available today.
[2018-10-20] MEDS: Ondansetron ODT 4 MG TAB PO PRN (17:06)
[2018-10-20] MEDS: Rosuvastatin 20 MG TAB PO SCH (21:32)
--- NOTE | 2018-10-21 08:27 | PDOC.PN ---
- Subjective Encounter Start Date: 10/21/18 Encounter Start Time: 08:25 About the same. Still has poor appetite. No other complaints. - Objective Resuscitation Status - Order Detail: 10/11/18 12:00 Resuscitation Status Routine Resuscitation Status: FULL: Full Resuscitation Vital Signs & Weight: Vital Signs (12 hours) Temp Pulse Resp BP Pulse Ox 10/21/18 07:58 97.3 F L 77 16 123/56 L 95 10/21/18 06:31 73 16 92 L 10/20/18 23:25 70 16 Weight Admit Weight 176 lb 1 oz Weight 185 lb 4.8 oz I&O: 10/20/18 10/21/18 10/22/18 06:59 06:59 06:59 Intake Total 900 1100 Balance 900 1100 Result Diagrams: 10/19/18 03:40 10/19/18 03:40 Additional Labs: Accuchecks 10/21/18 10/20/18 10/20/18 05:31 19:57 16:59 POC Glucose 139 H 140 H 152 H 10/20/18 11:57 POC Glucose 129 H Phys Exam - Physical Examination Constitutional: NAD Respiratory: no wheezing, no rales, no rhonchi Diminished left base. 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 transplanted heart: [place] heart Associated angina: without angina Qualified Code(s): I25.10 - Atherosclerotic heart disease of [place] coronary artery without angina pectoris Comment: stable (6) COPD (chronic obstructive pulmonary disease) Status: Chronic Qualifiers: COPD type: emphysema Emphysema type: unspecified Qualified Code(s): J43.9 - Emphysema, unspecified Comment: stable - Plan * S/P chemo. * Anorexia as a side-effect of chemo and possibly some compression from tumors. Should improve with time. * Minimal effusion. * To rehab when bed available.
[2018-10-21] MEDS: DULoxetine 30 MG CAP PO SCH (08:52)
[2018-10-21] MEDS: Lisinopril/Hydrochlorothiazide 20 mg/12.5 mg Tablet PO SCH (08:52)
[2018-10-21] MEDS: Levothyroxine 175 MCG TAB PO SCH (08:52)
[2018-10-21] MEDS: Aspirin 81 mg Enteric Coated Tablet PO SCH (08:52)
[2018-10-21] MEDS: Docusate 100 MG CAP PO SCH ×2 (08:53→20:03)
[2018-10-21] MEDS: Gabapentin 400 MG CAP PO SCH ×2 (08:53→20:43)
[2018-10-21] MEDS: Tamsulosin HCl 0.4 MG CAP PO SCH (08:53)
[2018-10-21] MEDS: Metoprolol Tartrate 50 MG TAB PO SCH ×2 (08:53→20:01)
[2018-10-21] MEDS: Senokot S 8.6-50 MG TAB PO SCH ×2 (08:53→20:02)
[2018-10-21] MEDS: Enoxaparin Sodium 40 MG/0.4 ML SYRINGE SC SCH (08:53)
[2018-10-21] MEDS: metFORMIN 500 MG TAB PO SCH ×2 (08:53→19:18)
--- NOTE | 2018-10-21 09:04 | PRG ---
DATE OF SERVICE: 10/21/2018 SUBJECTIVE: This morning, he is doing well. No shortness of breath, coughing, or wheezing. OBJECTIVE: VITAL SIGNS: Saturations are 95% on room air, respirations 16, temperature 97, pulse 77, blood pressure 120/56. CHEST: Decreased breath sounds, left. Right unremarkable. CARDIAC: Normal S1 and S2. No masses. IMPRESSION AND PLAN: 1. Left pleural effusion. 2. Lymphoma. 3. Severe deconditioning. 4. Await disposition. 5. Placement. Continue supportive care. Job ID: [id number]
--- NOTE | 2018-10-21 15:57 | PDOC.EVN ---
Event Note - Event Note Event Note: Notified patient had fallen. His SBP was 80's and he reported pain in back of his head. IV bolus NS 500 cc ordered. On arrival, he is awake and alert. He says he got up to go to the bathroom, got lightheaded and fell. Has had mild nausea, but nothing more than his baseline for the past several days. Remembers hitting the floor. He is not sure if he lost consciousness or not. Not significantly tender to the back of the head. Says he doesn't think it was too bad. SBP now 90's. Ordered CT head, BMP, CBC. Hold transfer to IRF.
--- NOTE | 2018-10-21 15:58 | CT ---
CT Brain WO Con: 10/21/2018 3:34 PM CLINICAL HISTORY: Fall. IMAGING TECHNIQUE: Multiple CT images were obtained of the brain without IV contrast. COMPARISON: CT the brain dated July 19, 2010 FINDINGS: Infarct: No acute infarct evident. Hemorrhage: None.. Hydrocephalus: None.. Basal cisterns: Normal.. Cerebral parenchyma: There is mild generalized cerebral and cerebellar atrophy.. Midline shift: None.. Cerebellum: Normal. Brainstem: Normal. OTHER: Calvarium: Intact.. Visualized Paranasal sinuses: Clear.. Extracranial soft tissues:Normal. IMPRESSION: No acute intracranial abnormality.
[2018-10-21] MEDS ORDERED: Sodium Chloride 0.9% 500 ML IVPB SCH (16:00)
[2018-10-21 18:22] LABS: Hemoglobin 14.2 g/dL (14.0-18.0); Mean Corpuscular HGB CONC 34.4 g/dL (32.0-36.0); Mean Corpuscular Hemoglobin 31.5 pg (27.0-31.0); Mean Corpuscular Volume 91.6 fL (78.0-98.0); Mean Platelet Volume 7.6 fL (7.4-10.4); Platelet Count 193 thou/uL (130-400); RBC Distribution Width 13.5 % (11.5-14.5); Red Blood Cell (RBC) Count 4.49 mill/uL (4.70-6.10); White Blood Cell (WBC) Count 6.4 thou/uL (4.8-10.8)
[2018-10-21 18:34] LABS: Anion Gap 11 mmol/L (10-20); BUN (Urea Nitrogen) 28 mg/dL (8.4-25.7); Calc. Creatinine Clearance 98 mL/min (70-130); Calcium 9.4 mg/dL (7.8-10.44); Carbon Dioxide 31 mmol/L (23-31); Chloride 97 mmol/L (98-107); Estimated GFR-MDRD Greater than 90; Glucose 145 mg/dL (83-110); Potassium 4.3 mmol/L (3.5-5.1); Sodium 135 mmol/L (136-145)
[2018-10-21 18:46] LABS: Band 1 % (5-11); Eosinophils 1 % (0-10); Lymphocytes 62 % (21-51); MDiff Complete? YES; Monocytes 1 % (0-10); Neutrophil 34 % (42-75); Platelet Morphology Comment Appears Adequate; RBC Morphology Normal; Reactive Lymphocytes 1 % (0-10)
[2018-10-21] MEDS: Rosuvastatin 20 MG TAB PO SCH (20:43)
[2018-10-21] MEDS: HumaLOG 300 UNITS/3 ML VIAL SC PRN (20:44)
[2018-10-22] MEDS ORDERED: Sodium Chloride 0.9% 500 ML IV SCH (00:15)
--- NOTE | 2018-10-22 08:01 | RAD ---
FRONTAL VIEW CHEST: COMPARISON: 10/16/2018 CLINICAL HISTORY: Hypoxia. FINDINGS: Persistent large left pleural effusion with adjacent alveolar density. Patchy right basilar density i s again demonstrated with adjacent pleural-based opacity. Cardiomediastinal silhouette is stable. IMPRESSION: 1. Large left pleural effusion remains. 2. Persistence of right basilar density indicating consolidation with adjacent pleural fluid. Pleura l fluid at the inferior right chest has slightly decreased. Continued follow-up is warranted. Transcribed Date/Time: 10/22/2018 8:44 AM
[2018-10-22] MEDS: Docusate 100 MG CAP PO SCH (09:16)
[2018-10-22] MEDS: Aspirin 81 mg Enteric Coated Tablet PO SCH (09:16)
[2018-10-22] MEDS: DULoxetine 30 MG CAP PO SCH (09:16)
[2018-10-22] MEDS: metFORMIN 500 MG TAB PO SCH ×2 (09:16→17:22)
[2018-10-22] MEDS: Gabapentin 400 MG CAP PO SCH (09:17)
[2018-10-22] MEDS: Tamsulosin HCl 0.4 MG CAP PO SCH (09:17)
[2018-10-22] MEDS: Levothyroxine 175 MCG TAB PO SCH (09:17)
[2018-10-22] MEDS: Senokot S 8.6-50 MG TAB PO SCH (09:18)
[2018-10-22] MEDS: Enoxaparin Sodium 40 MG/0.4 ML SYRINGE SC SCH (10:26)
--- NOTE | 2018-10-22 11:03 | PRG ---
DATE OF SERVICE: SUBJECTIVE: [place] yesterday became lightheaded and dizzy, fell , hit his head. CT of head was done which was negative. Chest x-ray was done which also showed evidence of left pleural effusion, which appears to be relatively stable. He is to be transferred to the rehab. OBJECTIVE: VITAL SIGNS: His sats are 96, temperature 97, pulse 84, blood pressure 111\72. CHEST: Decreased breath sounds. No wheezing. CARDIAC: Normal S1 and S2. No gallops. ABDOMEN: No masses. IMPRESSION: 1. Left pleural effusion, chylothorax. 2. Dizziness probably secondary to low blood pressure. 3. Malignant lymphoma. PLAN: Once again, he is pulmonary murphy asymptomatic. Labs unremarkable. Hold off thoracentesis until he becomes symptomatic. We will follow. Job ID: [id number] [facility]
[2018-10-22] MEDS: Metoprolol Tartrate 50 MG TAB PO SCH (11:14)
[2018-10-22] MEDS: Lisinopril/Hydrochlorothiazide 20 mg/12.5 mg Tablet PO SCH (11:14)
[2018-10-22 15:52] VITALS: BP 119/60; TEMP 98.4
[2018-10-22] MEDS: HumaLOG 300 UNITS/3 ML VIAL SC PRN (17:22)
[2018-10-22] MEDS: Ondansetron ODT 8 MG TAB PO PRN (17:27)
--- NOTE | 2018-10-23 02:05 | DIS ---
DATE OF ADMISSION: 10/11/2018 DATE OF DISCHARGE: 10/22/2018 DISCHARGE DIAGNOSES: 1. Chronic lymphocytic leukemia/small lymphocytic lymphoma. 2. Left pleural effusion. 3. Acute hypoxic respiratory failure. 4. Nausea. 5. Diabetes mellitus. 6. Coronary artery disease. 7. Hypertension. 8. BPH. 9. Hypothyroidism. 10. Hyperlipidemia. HISTORY OF PRESENT ILLNESS: The patient is a 73-year-old male, who presented to the hospital with shortness of breath. The patient had a history of CLL and was followed as an outpatient with Dr. Burks. The patient reported that he had not initiated therapy as of yet and initially made it sound like he was still deliberating as to whether he would pursue that. The patient also reported some low-grade nausea, difficulty eating, was not initially clear whether this was related to difficulty swallowing or simply the nausea, making it difficult for him to force himself to eat. The patient was noted to have prior pleural effusions one on either side, which had previously been tapped. His initial workup revealed recurrent left pleural effusion as well. HOSPITAL COURSE: The patient was admitted to the hospital with initially what appeared to be some pneumonia along with CLL. He was started on antibiotics. There was concern for aspiration. He had a modified barium swallow performed with speech therapy, which does not reveal significant aspiration. The case was discussed with Dr. Burks and a CT chest from outside visit was reviewed revealing significant mass lesions throughout the chest and mediastinum. Consulted Pulmonology, Dr. 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 With that discussed with Dr. Burks, he reported the patient was actually waiting on approval for biologic agent. However, given the current situation, felt it made more sense to go ahead and treat the patient with a round of traditional chemotherapy and an effort to try to shrink the existing tumors and hope that this would liberate his breathing, swallowing, and azygos. He was also seen by Radiation Oncology, who felt there was not a significant indication for radiation intervention. The patient had echocardiogram which showed some diastolic dysfunction, but was otherwise essentially normal. Pulmonology did not feel the patient needed a thoracenteses as it was unclear whether this was actually causing the patient's symptoms or not. The patient did ultimately undergo chemotherapy regimen under the care of Oncology. Subsequently, the patient did have decreased appetite and taste disturbances, which made it difficult for him to get adequate nutrition. He was drinking diabetes compatible on protein supplement shakes and drinks as his primary source of nutrition. Again, discussed with the patient repeatedly, he did not feel like he was actually having mechanical difficulty swallowing, simply had no taste of his food, and some constant low-grade nausea made it difficult for him to force himself to swallow it. Once the patient had the chemotherapy regimen, he remained diffusely profoundly weak and was felt to be appropriate for inpatient rehab. He was evaluated and accepted today. He was supposed to go on 10/21/2018. The patient got up to go to the bathroom, got lightheaded and fell, believes he hit the back of his head. He had a CT scan of the head, which showed no pathology. He had a blood pressure at that time, it was in the 80s. He received a 500 mL bolus of fluid and seem to improve a little. Pressure came down again and a second bolus was given. At that time, his blood pressure appeared to firm up and remain normal. He was again felt to be stable for transition to inpatient rehab with reduction in his blood pressure medications. The patient's chemotherapy regimen consisted of cyclophosphamide, Aloxi, rituximab, and vincristine along with steroids. PHYSICAL EXAMINATION: On the day of discharge, the patient reported a little bit of pain in his knee and in his back, but states this is all chronic. He had no head pain. VITAL SIGNS: His temperature was 98.4, pulse 96, respirations 18, O2 saturation 92% on room air, BP was 119/60. Orthostatics were negative. HEART: Regular rate and rhythm without murmurs. LUNGS: Diminished at the left base, but otherwise clear. ABDOMEN: Soft, nontender, and nondistended with positive bowel sounds. EXTREMITIES: No cyanosis, clubbing, or edema. DISPOSITION: The patient discharged to inpatient rehab with PT, OT, and followed by Speech Therapy to be on a diabetic diet and activity as tolerated. MEDICATIONS: 1. DuoNeb. 2. Tylenol. 3. Aspirin. 4. Colace. 5. Cymbalta. 6. Neurontin. 7. Pantoprazole. 8. Polyethylene glycol. 9. Metoprolol, which will be reduced to 25 b.i.d. 10. Aspirin. 11. Glipizide. 12. Gabapentin. 13. [place]. 14. Levothyroxine. 15. B12. 16. Metformin. 17. Trolamine salicylate cream. 18. Trazodone. 19. Tamsulosin. 20. Simethicone. 21. Rosuvastatin. 22. Zinc. 23. Senokot S. 24. Duloxetine. 25. Multivitamin. 26. We will stop his lisinopril-HCTZ. FOLLOWUP: The patient should have followup with Oncology following his discharge from rehab with a plan is to go back to the biological regimen other than traditional chemotherapy. He can return to the hospital should he have any problems prior to that time. Time spent in discharge activities, including face to face time with patient, was 36 min. Job ID: [id number] [facility]
== END 2018-10-22 20:05 | DRG 840 ==
LOC: ERS 08:15 → T4-B 14:05 → OBSVTOIN 14:12 → T4-B 14:12 → ONC 10-13 19:42
PROVIDERS: ADMIT Internal Medicine; ATTEND Internal Medicine
DX: C83.08 Small cell B-cell lymphoma, lymph nodes of multiple sites (principal); J18.9 Pneumonia, unspecified organism; J96.01 Acute respiratory failure with hypoxia; J44.0 Chronic obstructive pulmonary disease with (acute) lower respiratory infection; J44.1 Chronic obstructive pulmonary disease with (acute) exacerbation; J91.0 Malignant pleural effusion; I25.10 Atherosclerotic heart disease of native coronary artery without angina pectoris; N40.0 Benign prostatic hyperplasia without lower urinary tract symptoms; I10 Essential (primary) hypertension; E78.5 Hyperlipidemia, unspecified; I89.8 Other specified noninfective disorders of lymphatic vessels and lymph nodes; E03.9 Hypothyroidism, unspecified; T45.1X5A Adverse effect of antineoplastic and immunosuppressive drugs, initial encounter; E11.42 Type 2 diabetes mellitus with diabetic polyneuropathy; R63.0 Anorexia; Z79.84 Long term (current) use of oral hypoglycemic drugs; Z79.82 Long term (current) use of aspirin; Z79.899 Other long term (current) drug therapy; Z95.1 Presence of aortocoronary bypass graft; Z88.2 Allergy status to sulfonamides; Z87.01 Personal history of pneumonia (recurrent); Z68.23 Body mass index [BMI] 23.0-23.9, adult
CPT/HCPCS: 36415; 36416; 70450; 71045; 71046; 74018; 74230; 80048; 80053; 83605; 83615; 83880; 84484; 84550; 85025; 87040; 87324; 87449; 93005; 93306; 94640; 94760; 96365; 96367; 96375; J0456; J0696; J1100; J1200; J1650; J1940; J2469; J3490; J7050; J7070; J7512; J7620; J9070; J9310; J9312; J9370; Q0162